=== PATIENT | male | born 1960 | race African-American/Black ===

== ENCOUNTER 2017-01-15 08:29 | Emergency (ER) | payer MEDICAID ==
[~2017-01-15] VITALS: Ht 175.3 cm; Wt 84.8 kg
[2017-01-15] MEDS ORDERED: cloNIDine HCL 0.1 MG TAB PO ONE (09:15)
[2017-01-15] MEDS ORDERED: KETOROLAC TROMETH 60MG/2ML VIAL IM ONE (10:00)
[2017-01-15 10:37] VITALS: BP 150/102
== END 2017-01-15 10:36 | disposition home or self-care (01) ==
LOC: ER 08:29
DX: G89.29 Other chronic pain (principal); M25.531 Pain in right wrist; I10 Essential (primary) hypertension; M10.9 Gout, unspecified; M79.89 Other specified soft tissue disorders
CPT/HCPCS: 73110; 96372; 99284; J1885

== ENCOUNTER 2017-04-16 05:20 | Emergency (ER) | payer MEDICAID ==
[~2017-04-16] VITALS: Ht 175.3 cm; Wt 83.9 kg
[2017-04-16] MEDS ORDERED: cloNIDine HCL 0.1 MG TAB ONE (05:31)
[2017-04-16] MEDS ORDERED: cloNIDine HCL 0.1 MG TAB PO ONE (05:45)
[2017-04-16 06:05] LABS: Basophils # (auto) 0.1 uL; Basophils % (auto) 1.1 % (0.0-2.0); Eosinophils # (auto) 0.3 uL; Eosinophils % (auto) 2.5 % (0.0-7.0); Hemoglobin 13.7 g/dL (13.5-17.5); Lymphocytes # (auto) 4.6 uL; Lymphocytes % (auto) 40.6 % (10.0-50.0); Mean Corpuscular Hemoglobin 28.4 pg (28.0-32.0); Mean Corpuscular Hgb Conc. 32.6 g/dL (32.0-36.0); Mean Corpuscular Volume 87.1 fL (80.0-100.0); Mean Platelet Volume 9.6 fL (6.9-10.8); Monocytes # (auto) 1.3 uL; Monocytes % (auto) 11.7 % (0.0-12.0); Neutrophils % (auto) 44.1 % (37.0-80.0); Nucleated Red Blood Cells % 0.3 %; Platelet Count (auto) 306 10^3/uL (140-450); Red Cell Distribution Width 15.1 % (11.8-14.3); White Blood Cell 11.3 10^3/uL (4.4-10.8)
[2017-04-16 06:10] LABS: Albumin 3.8 g/dL (3.4-5.0); Anion Gap 9 (5-15); Aspartate Aminotransferase 31 U/L (15-37); BUN/Creatinine Ratio 20.2; Blood Urea Nitrogen 19 mg/dL (7-18); Calcium 9.4 mg/dL (8.5-10.1); Carbon Dioxide 26 mmol/L (21-32); Chloride 103 mmol/L (98-107); GFR African American 107 mL/min; GFR Non-African American 89 mL/min; Glucose 99 mg/dL (74-106); Magnesium 1.9 mg/dL (1.6-2.6); Potassium 3.9 mmol/L (3.5-5.1); Sodium 138 mmol/L (136-145)
[2017-04-16 06:15] LABS: Alkaline Phosphatase 87 U/L (45-117); Bilirubin, Total 0.4 mg/dL (0.2-1.0); Total Protein 8.5 g/dL (6.4-8.2)
[2017-04-16 06:27] VITALS: BP 158/104
[2017-04-16] MEDS ORDERED: ONDANSETRON HCL 4 MG/2 ML VIAL IV ONE (06:45)
[2017-04-16] MEDS ORDERED: MORPHINE SULF INJ 2 MG/ML SYRINGE 1ML IV ONE (06:45)
== END 2017-04-16 07:08 | disposition home or self-care (01) ==
LOC: EDBD 05:20 → ER 05:21
DX: M10.022 Idiopathic gout, left elbow (principal); I10 Essential (primary) hypertension
CPT/HCPCS: 36415; 80053; 83735; 84484; 85025; 93005; 96374; 96375; 99285; J2270; J2405

== ENCOUNTER 2018-03-12 16:50 | Inpatient (IN) | payer MEDICAID ==
[~2018-03-12] VITALS: Ht 170.2 cm; Wt 82.4 kg
[2018-03-12] MEDS ORDERED: cloNIDine HCL 0.1 MG TAB ONE (17:02)
[2018-03-12] MEDS ORDERED: cloNIDine HCL 0.1 MG TAB PO ONE (17:15)
[2018-03-12 17:20] LABS: Basophils # (auto) 0.1 uL; Basophils % (auto) 1.1 % (0.0-2.0); Eosinophils # (auto) 0.1 uL; Eosinophils % (auto) 0.7 % (0.0-7.0); Hematocrit 40.7 % (41.0-53.0); Hemoglobin 13.2 g/dL (13.5-17.5); Lymphocytes # (auto) 3.7 uL; Lymphocytes % (auto) 41.5 % (10.0-50.0); Mean Corpuscular Hgb Conc. 32.5 g/dL (32.0-36.0); Mean Corpuscular Volume 86.1 fL (80.0-100.0); Monocytes # (auto) 0.7 uL; Monocytes % (auto) 8.4 % (0.0-12.0); Neutrophils # (auto) 4.3 uL; Neutrophils % (auto) 48.3 % (37.0-80.0); Nucleated Red Blood Cells % 0.5 %; Platelet Count (auto) 193 10^3/uL (140-450); Red Blood Cells 4.72 10^6/uL (4.5-5.90); Red Cell Distribution Width 14.6 % (11.8-14.3)
[2018-03-12 17:36] LABS: Albumin 4.1 g/dL (3.4-5.0); Anion Gap 7 (5-15); Blood Urea Nitrogen 13 mg/dL (7-18); Calcium 9.3 mg/dL (8.5-10.1); Carbon Dioxide 28 mmol/L (21-32); Chloride 98 mmol/L (98-107); Glucose 110 mg/dL (74-106); Sodium 133 mmol/L (136-145)
[2018-03-12 17:41] LABS: Alanine Aminotransferase 27 U/L (16-61); Alkaline Phosphatase 101 U/L (45-117); Aspartate Aminotransferase 20 U/L (15-37); BUN/Creatinine Ratio 14.4; Bilirubin, Total 0.8 mg/dL (0.2-1.0); GFR African American 112 mL/min; GFR Non-African American 93 mL/min; Total Protein 8.8 g/dL (6.4-8.2)
[2018-03-12] MEDS ORDERED: KETOROLAC TROMETH 30 MG/ML 1ML VIAL IV ONE (18:30)
[2018-03-12] MEDS ORDERED: InsuLIN REG 1unit/0.01ml Soln (100units/ml) SC ONE (19:45)
[2018-03-12] MEDS ORDERED: HYDROcodone-ACET 10/325MG TAB PO ONE ×2 (20:15)
[2018-03-12] MEDS ORDERED: cefTRIAXone 1GM/50ML D5W 50 ML IV ONE (20:15)
[2018-03-12] MEDS ORDERED: ALLOPURINOL 100 MG TAB PO ONE ×2 (21:00→23:00)
[2018-03-12] MEDS ORDERED: TEMAZEPAM 15 MG CAP PO PRN (21:00)
[2018-03-12] MEDS ORDERED: ONDANSETRON HCL 4 MG/2 ML VIAL IV PRN (21:00)
[2018-03-12] MEDS ORDERED: ACETAMINOPHEN 325 MG TAB PO PRN (21:00)
[2018-03-12 21:56] VITALS: BP 165/109
[2018-03-12] MEDS ORDERED: CLINDAMYCIN 600MG IV 50 ML IV SCH (22:00)
[2018-03-12] MEDS: FAMOTIDINE 20 MG TAB PO SCH (22:46)
[2018-03-12] MEDS: HYDROcodone-ACET 5/325MG TAB PO PRN (23:03)
[2018-03-12] MEDS ORDERED: KETOROLAC TROMETH 30 MG/ML 1ML VIAL IV PRN (23:15)
[2018-03-12] MEDS: cloNIDine HCL 0.1 MG TAB PO PRN (23:36)
[2018-03-12 23:54] VITALS: BP 165/109
[2018-03-13] VITALS (7 sets, daily range): BP systolic 142–161; BP diastolic 58–102
[2018-03-13] MEDS: HYDROcodone-ACET 5/325MG TAB PO PRN ×4 (05:47→22:33)
[2018-03-13] MEDS ORDERED: INFLUENZA QUAD 2018-2019 0.5 ML SYRG IM ONE (06:00)
[2018-03-13] MEDS ORDERED: PNEUMOCOCCAL VACC POLYS 25 MCG/0.5 ML VIAL IM ONE (06:00)
[2018-03-13] MEDS: FAMOTIDINE 20 MG TAB PO SCH ×2 (09:53→22:33)
[2018-03-13] MEDS ORDERED: ALLOPURINOL 100 MG TAB PO SCH ×2 (10:00)
[2018-03-13] MEDS ORDERED: LISINOPRIL 10 MG TAB PO SCH (10:00)
[2018-03-13] MEDS ORDERED: predniSONE 20 MG TAB PO STA (11:57)
[2018-03-13] MEDS: METOPROLOL TARTRATE 25 MG TAB PO SCH ×2 (13:11→22:32)
[2018-03-14 05:48] VITALS: BP 166/112
[2018-03-14] MEDS: cloNIDine HCL 0.1 MG TAB PO PRN (06:15)
== END 2018-03-14 08:00 | disposition left against medical advice (07) | DRG 351 ==
LOC: ER 16:58 → OVERFLOW 16:59 → CENTRAL 21:55
PROVIDERS: ADMIT Nurse Practitioner; ATTEND Internal Medicine Pulmonary Disease
DX: M10.072 Idiopathic gout, left ankle and foot (principal); L03.116 Cellulitis of left lower limb; I10 Essential (primary) hypertension; Z53.21 Procedure and treatment not carried out due to patient leaving prior to being seen by health care provider; M10.9 Gout, unspecified; Z82.49 Family history of ischemic heart disease and other diseases of the circulatory system; Z91.14 Patient's other noncompliance with medication regimen; Z23 Encounter for immunization
CPT/HCPCS: 36415; 71045; 73630; 80053; 84484; 84550; 85025; 90674; 96365; 96375; G0378; J0696; J1885; J3490

== ENCOUNTER 2020-02-23 21:54 | Inpatient (IN) | payer MEDICAID ==
[~2020-02-23] VITALS: Ht 175.3 cm; Wt 86.9 kg
[2020-02-23] MEDS ORDERED: cloNIDine HCL 0.1 MG TAB PO ONE (22:15)
[2020-02-24 00:11] LABS: Basophils # (auto) 0 10 ^3/uL (0-0.2); Basophils % (auto) 0.5 % (0.0-2.0); Eosinophils # (auto) 0 10 ^3/uL (0-0.8); Eosinophils % (auto) 0.9 % (0.0-7.0); Hematocrit 30.3 % (41.0-53.0); Hemoglobin 9.8 g/dL (13.5-17.5); Lymphocytes # (auto) 0.9 10 ^3/uL (0.4-5.4); Lymphocytes % (auto) 21.1 % (10.0-50.0); Mean Corpuscular Hemoglobin 28.3 pg (28.0-32.0); Mean Corpuscular Hgb Conc. 32.5 g/dL (32.0-36.0); Mean Corpuscular Volume 86.9 fL (80.0-100.0); Monocytes # (auto) 0.2 10 ^3/uL (0-1.3); Monocytes % (auto) 3.9 % (0.0-12.0); Neutrophils # (auto) 3.1 10 ^3/uL (1.6-8.6); Neutrophils % (auto) 73.6 % (37.0-80.0); Nucleated Red Blood Cells % 1.5 %; Platelet Count (auto) 177 10^3/uL (140-450); Red Blood Cells 3.48 10^6/uL (4.5-5.90); Red Cell Distribution Width 19.8 % (11.8-14.3); White Blood Cell 4.3 10^3/uL (4.4-10.8)
[2020-02-24 00:28] LABS: Albumin 3.4 g/dL (3.4-5.0); BUN/Creatinine Ratio 14.3; Calcium 8.4 mg/dL (8.5-10.1); Potassium 3.9 mmol/L (3.5-5.1)
[2020-02-24 00:31] LABS: Bilirubin, Total 0.3 mg/dL (0.2-1.0); Total Protein 7.8 g/dL (6.4-8.2)
[2020-02-24] MEDS ORDERED: GLUCAGON HYDROCHLORIDE (RDNA) 1 MG VIAL IV ONE (06:30)
[2020-02-24] MEDS ORDERED: SODIUM CHLORIDE 0.9% 1,000 ML IV ONE ×2 (06:30→06:45)
[2020-02-24] MEDS ORDERED: FAMOTIDINE (10MG/ML) 2ML VL IV ONE (06:45)
[2020-02-24 08:34] LABS: INR 0.98 (0.9-1.15); Partial Thromboplastin Time 25.1 sec (23.0-31.2)
[2020-02-24] MEDS ORDERED: MORPHINE SULF INJ 2 MG/ML SYRINGE 1ML ONE (09:21)
[2020-02-24] MEDS ORDERED: ONDANSETRON HCL 4 MG/2 ML VIAL ONE ×2 (09:27→12:10)
[2020-02-24] MEDS ORDERED: MEPERIDINE HCL (25 MG/ML) 1ML VIAL IM PRN (10:00)
[2020-02-24] MEDS ORDERED: ONDANSETRON HCL 4 MG/2 ML VIAL IV PRN ×2 (10:00→14:45)
[2020-02-24] MEDS ORDERED: hydrALAZINE HCL 20 MG/ML VL IV PRN (10:00)
[2020-02-24] MEDS ORDERED: NITROGLYCERIN 0.4 MG SL TAB SL PRN (10:00)
[2020-02-24] MEDS ORDERED: MORPHINE SULF INJ 2 MG/ML SYRINGE 1ML IV PRN (10:00)
[2020-02-24 10:24] LABS: % Iron Saturation 26.3 % (20-55)
[2020-02-24] MEDS: PANTOPRAZOLE 40 MG/10 ML VIAL INJ IV SCH ×2 (11:00→21:43)
[2020-02-24] MEDS: LABETALOL HCL 5 MG/ML 4ML SYRINGE IV PRN ×2 (11:01→21:44)
[2020-02-24] MEDS ORDERED: FOLIC ACID 1 MG, MULTIPLE VITAMIN 10 ML, MAGNESIUM SULF SDV 50% 8 MEQ, THIAMINE INJ 100... INJ SCH ×5 (12:00)
[2020-02-24] MEDS ORDERED: LIDOCAINE 2% (LOCAL ANESTH.) PF 5ml SDV ONE (12:10)
[2020-02-24] MEDS ORDERED: DexAMETHasone SOD PHOS 10MG/1ML VIAL INJ ONE (12:10)
[2020-02-24] MEDS ORDERED: PROPOFOL 10 MG/ML 20 ML IV ONE (12:10)
[2020-02-24] MEDS ORDERED: MIDAZOLAM HCL 1MG/1ML-2 ML VIAL ONE ×2 (12:10→14:23)
[2020-02-24] MEDS ORDERED: GLYCOPYRROLATE 0.2 MG/ML 1ML VIAL ONE (12:10)
[2020-02-24] MEDS ORDERED: fentaNYL CITRATE 100 MCG/2 ML VL ONE (12:10)
--- NOTE | 2020-02-24 12:13 | NUR ---
PATIENT ARRIVED TO THE FLOOR. NO REPORT RECEIVED. SAQIB NOT SENT TO LAB. WALKED SAQIB TO LAB.
[2020-02-24] MEDS ORDERED: SUCCINYLCHOLINE CHLORIDE 20 MG/ML 10ML VIAL IV ONE (12:18)
[2020-02-24 13:00] VITALS: BP 155/89
--- NOTE | 2020-02-24 13:33 | NUR ---
PATIENT DOWN TO OR. PATIENT SHOWS NO SIGNS OF DISTRESS AT THIS TIME.
[2020-02-24] MEDS ORDERED: ROCURONIUM 10MG/ML 10ML VIAL IV ONE (13:53)
[2020-02-24] MEDS ORDERED: HYDROmorphone HCL 2 MG/ML VL ONE (14:21)
[2020-02-24 14:36] VITALS: BP 110/62
[2020-02-24] MEDS ORDERED: HYDROmorphone HCL 2 MG/ML VL IV PRN (14:45)
[2020-02-24] MEDS ORDERED: MORPHINE SULFATE 4 MG/ML SYR/VIAL IV PRN (14:45)
[2020-02-24] MEDS ORDERED: MIDAZOLAM HCL 1MG/1ML-2 ML VIAL IV PRN (14:45)
[2020-02-24] MEDS ORDERED: ALBUTEROL SULF 2.5 MG/0.5ML(0.5%) NEB SOLN ONE (15:12)
[2020-02-24] MEDS ORDERED: IPRATROPIUM BROM 0.5 MG/2.5ML INH SOL ONE (15:13)
--- NOTE | 2020-02-24 15:13 | NUR ---
RT NOTE: PT. AWAKE AND ALERT AND ABLE TO FOLLOW COMMANDS. DR. CARR EXTUBATED PT. WITHOUT INCIDENT. PT. PLACED ON A 10L SIMPLE MASK WITH SPO2 96%.
[2020-02-24] MEDS ORDERED: ALBUTEROL SULF 2.5 MG/0.5ML(0.5%) NEB SOLN NEB ONE (15:15)
[2020-02-24] MEDS ORDERED: IPRATROPIUM BROM 0.5 MG/2.5ML INH SOL NEB ONE (15:15)
[2020-02-24] MEDS ORDERED: chlordiazePOXIDE HCL 5 MG CAP PO PRN (15:45)
--- NOTE | 2020-02-24 15:55 | NUR ---
PATIENT BACK FROM THE OR. SLEEPING. NO SIGNS OF DISTRESS AT THIS TIME.
[2020-02-24 17:35] LABS: Urine Bacteria MOD /hpf (None Seen); Urine Blood TRACE /uL (Negative); Urine Mucus FEW (None Seen); Urine Specific Gravity 1.013 (1.001-1.035); Urine WBC 30 /hpf (0 - 3)
--- NOTE | 2020-02-24 18:41 | NUR ---
IV insertion Patient accidently pulled out IV. IV access obtained, via clean sterile technique by inserting 20 gauge catheter at the right wrist after 1 attempt. IV secured properly. No trauma to site. Patient tolerated well.
--- NOTE | 2020-02-24 19:10 | NUR ---
Opening Shift Note Assumed care of patient, awake, alert and oriented x4, on room air with even and unlabored respirations, no S/S of distress/SOB or pain. Patient able to turn in bed independently, bed in lowest locked position, side rails up x2, and call light within reach. Instructed on POC and to call for assist PRN, will continue to monitor for changes Q1hr and PRN.
[2020-02-24] MEDS: IPRATROPIUM BROM 0.5 MG/2.5ML INH SOL NEB SCH (19:45)
[2020-02-24] MEDS: ALBUTEROL SULF 2.5 MG/0.5ML(0.5%) NEB SOLN NEB SCH (19:45)
--- NOTE | 2020-02-24 20:02 | NUR ---
SCHEDULED MED NEB TX WAS HELD @ THIS TIME DUE TO PT VOMITING AND C/O OF NAUSEA. NO RESPIRATORY DISTRESS NOTED. CURRENTLY ON R/A SPO2 96%, HR 98 AND RR 20. BS ARE CLEAR.
[2020-02-24 22:00] VITALS: BP 165/96
[2020-02-24 22:55] VITALS: BP 165/96
[2020-02-24] MEDS ORDERED: HYDROcodone-ACET 5/325MG TAB PO PRN (23:00)
[2020-02-25 05:00] VITALS: BP 188/99
[2020-02-25] MEDS: LABETALOL HCL 5 MG/ML 4ML SYRINGE IV PRN (05:23)
[2020-02-25] MEDS: IPRATROPIUM BROM 0.5 MG/2.5ML INH SOL NEB SCH (06:27)
[2020-02-25] MEDS: ALBUTEROL SULF 2.5 MG/0.5ML(0.5%) NEB SOLN NEB SCH (06:27)
--- NOTE | 2020-02-25 07:00 | NUR ---
OPENING SHIFT NOTE RECEIVED REPORT ON THE PATIENT. AWAKE LYING IN BED HAVING BREAKFAST. PATIENT SHOWS NO SIGNS OF DISTRESS AT THIS TIME. DISCUSSED THE PLAN OF CARE WITH THE PATIENT. BED IN LOWEST POSITION, SIDE RAILS UP X2, AND THE CALL LIGHT IS WITHIN REACH.
[2020-02-25] MEDS: PANTOPRAZOLE 40 MG/10 ML VIAL INJ IV SCH ×2 (10:00)
--- NOTE | 2020-02-25 10:20 | NUR ---
DR SNYDER AT BEDSIDE. NEW ORDERS RECEIVED.
--- NOTE | 2020-02-25 10:40 | NUR ---
PATIENT REFUSED LABETALOL AND RIPPED OUT IV ACCESS. PATIENT TO BE DISCHARGED.
[2020-02-25 11:13] VITALS: BP 160/98
--- NOTE | 2020-02-25 11:48 | NUR ---
Discharge instructions given as ordered. Encourage to follow up with PMD as instructed. All questions and concerns addressed. Patient verbalized understanding. Medication reconciliation form completed and copy given to patient. IV removed with catheter intact, pressure dressing applied.Telemetry unit returned to ICU. Patient taken to vehicle via wheelchair with all personal belongings, accompanied by staff and family member. No distress noted at time of departure.
== END 2020-02-25 11:49 | disposition home or self-care (01) | DRG 254 ==
LOC: ER 21:56 → TELE 21:57 → TELE-WESTW 02-24 12:11
PROVIDERS: ADMIT Nurse Practitioner Acute Care; ATTEND Internal Medicine
PROC: 0DC58ZZ Extirpation of Matter from Esophagus, Via Natural or Artificial Opening Endoscopic (ICD-10-PCS; principal; 2020-02-24 13:36)
DX: T18.198A Other foreign object in esophagus causing other injury, initial encounter (principal); I10 Essential (primary) hypertension; X58.XXXA Exposure to other specified factors, initial encounter; D63.8 Anemia in other chronic diseases classified elsewhere; Z20.828 Contact with and (suspected) exposure to other viral communicable diseases; Y93.89 Activity, other specified; Y92.89 Other specified places as the place of occurrence of the external cause; Y99.8 Other external cause status; Z80.42 Family history of malignant neoplasm of prostate
CPT/HCPCS: 36415; 70490; 71045; 80053; 81001; 82962; 83540; 83550; 83735; 85025; 85610; 85730; 87070; 87205; 87426; 93005; 94002; 94640; 96361; 96374; 96375; C9113; G0378; J0330; J1100; J2001; J2250; J2405; J2704; J3490

== ENCOUNTER 2020-09-23 05:55 | Emergency (ER) | payer MEDICAID ==
[~2020-09-23] VITALS: Ht 175.3 cm; Wt 84.8 kg
[2020-09-23 07:33] LABS: Hematocrit 29.4 % (41.0-53.0); Hemoglobin 9.5 g/dL (13.5-17.5); Mean Corpuscular Hemoglobin 28.3 pg (28.0-32.0); Mean Corpuscular Hgb Conc. 32.2 g/dL (32.0-36.0); Mean Corpuscular Volume 88.1 fL (80.0-100.0); Platelet Count (auto) 177 10^3/uL (140-450); Red Blood Cells 3.34 10^6/uL (4.5-5.90); White Blood Cell 3.9 10^3/uL (4.4-10.8)
[2020-09-23 07:36] LABS: Alanine Aminotransferase 34 U/L (16-61); Albumin 3.6 g/dL (3.4-5.0); Anion Gap 8 (5-15); Aspartate Aminotransferase 54 U/L (15-37); Blood Urea Nitrogen 11 mg/dL (7-18); Calcium 8.7 mg/dL (8.5-10.1); Carbon Dioxide 25 mmol/L (21-32); Chloride 106 mmol/L (98-107); Glucose 102 mg/dL (74-106); Magnesium 1.7 mg/dL (1.6-2.6); Potassium 3.8 mmol/L (3.5-5.1); Sodium 139 mmol/L (136-145)
[2020-09-23 07:38] LABS: Basophils % (manual) 0 (0.0-2.0); Blast Cells 0; Eosinophils % (manual) 0 (0-7); Metamyelocytes % 0; Myelocytes % 0; Promyelocytes % 0
[2020-09-23 07:41] LABS: Alkaline Phosphatase 161 U/L (45-117); BUN/Creatinine Ratio 11.7; Bilirubin, Total 0.8 mg/dL (0.2-1.0); GFR African American 106 mL/min; GFR Non-African American 88 mL/min; Total Protein 8.1 g/dL (6.4-8.2)
[2020-09-23 08:21] LABS: Band Neutrophils % (manual) 5; Lymphocytes % (manual) 49 (10.0-50.0); Monocytes % (manual) 5 (0-12); Reactive Lymphocytes 5
[2020-09-23] MEDS ORDERED: HYDROcodone-ACET 10/325MG TAB PO ONE (08:30)
[2020-09-23] MEDS ORDERED: LABETALOL HCL 5 MG/ML 4ML SYRINGE IV ONE (08:30)
[2020-09-23 08:46] LABS: Urine Bacteria FEW /hpf (None Seen); Urine Blood 1+ /uL (Negative); Urine Mucus FEW (None Seen); Urine Specific Gravity 1.013 (1.001-1.035); Urine WBC 701 /hpf (0 - 3); Urine WBC Clumps PRESENT /hpf (None Seen)
[2020-09-23] MEDS ORDERED: cloNIDine HCL 0.1 MG TAB PO ONE (09:45)
[2020-09-23 10:22] VITALS: BP 206/112
== END 2020-09-23 10:53 | disposition home or self-care (01) ==
LOC: ER 05:55
DX: S86.912A Strain of unspecified muscle(s) and tendon(s) at lower leg level, left leg, initial encounter (principal); I10 Essential (primary) hypertension; M10.9 Gout, unspecified; W01.0XXA Fall on same level from slipping, tripping and stumbling without subsequent striking against object, initial encounter; Y93.89 Activity, other specified; Y92.89 Other specified places as the place of occurrence of the external cause; Y99.8 Other external cause status
CPT/HCPCS: 36415; 71045; 80053; 81001; 83735; 83880; 84484; 85007; 85027; 93005; 93971; 96374; 99285; J3490

== ENCOUNTER 2021-04-08 19:12 | Emergency (ER) | payer MEDICAID ==
[~2021-04-08] VITALS: Ht 175.3 cm; Wt 84.8 kg
[2021-04-08 20:12] LABS: Urine Bacteria FEW /hpf (None Seen); Urine Blood TRACE /uL (Negative); Urine Specific Gravity 1.005 (1.001-1.035); Urine WBC 12 /hpf (0 - 3)
[2021-04-08 20:23] LABS: Amphetamine Screen, Urine NEGATIVE (NEGATIVE); Barbiturate Scree,Urine NEGATIVE (NEGATIVE); Benzodiazephine Screen, Urine NEGATIVE (NEGATIVE); Cannabinoid Screen, Urine NEGATIVE (NEGATIVE); Cocaine Screen, Urine NEGATIVE (NEGATIVE); Phencyclidine Screen, Urine NEGATIVE (NEGATIVE)
[2021-04-08 20:32] LABS: Opiate Scree,Urine NEGATIVE (NEGATIVE)
[2021-04-09 03:00] VITALS: BP 142/89
== END 2021-04-09 05:41 | disposition home or self-care (01) ==
LOC: EDBD 19:12 → ER 19:12
DX: S01.81XA Laceration without foreign body of other part of head, initial encounter (principal); F10.10 Alcohol abuse, uncomplicated; I10 Essential (primary) hypertension; V49.9XXA Car occupant (driver) (passenger) injured in unspecified traffic accident, initial encounter; Y93.89 Activity, other specified; Y92.89 Other specified places as the place of occurrence of the external cause; Y99.8 Other external cause status
CPT/HCPCS: 70450; 71045; 72170; 73560; 80307; 81001

== ENCOUNTER 2021-04-24 21:11 | Inpatient (IN) | payer MEDICAID ==
[~2021-04-24] VITALS: Ht 175.3 cm; Wt 89.2 kg
[2021-04-24] MEDS ORDERED: LABETALOL HCL 5 MG/ML 4ML SYRINGE IV ONE ×2 (21:45→23:45)
[2021-04-24 22:13] LABS: Hematocrit 30.7 % (41.0-53.0); Hemoglobin 9.7 g/dL (13.5-17.5); Mean Corpuscular Hemoglobin 27.7 pg (28.0-32.0); Mean Corpuscular Hgb Conc. 31.6 g/dL (32.0-36.0); Mean Corpuscular Volume 87.8 fL (80.0-100.0); Red Blood Cells 3.49 10^6/uL (4.5-5.90); White Blood Cell 3.8 10^3/uL (4.4-10.8)
[2021-04-24 22:25] LABS: Basophils % (manual) 0 (0.0-2.0); Blast Cells 0; Metamyelocytes % 0; Myelocytes % 0; Promyelocytes % 0; Reactive Lymphocytes 0
[2021-04-24 22:32] LABS: Albumin 3.3 g/dL (3.4-5.0); BUN/Creatinine Ratio 23.4; Calcium 8.2 mg/dL (8.5-10.1); Potassium 4.2 mmol/L (3.5-5.1)
[2021-04-24 22:41] LABS: Bilirubin, Total 0.4 mg/dL (0.2-1.0); Total Protein 7.8 g/dL (6.4-8.2)
[2021-04-25 00:19] LABS: Band Neutrophils % (manual) 2; Eosinophils % (manual) 1 (0-7); Lymphocytes % (manual) 59 (10.0-50.0); Monocytes % (manual) 2 (0-12)
[2021-04-25] MEDS ORDERED: LABETALOL HCL 200 MG TAB PO ONE (01:00)
[2021-04-25] MEDS ORDERED: HYDROcodone-ACET 5/325MG TAB PO ONE (04:45)
[2021-04-25] MEDS ORDERED: HYDROcodone-ACET 5/325MG TAB ONE (04:45)
[2021-04-25] MEDS ORDERED: amLODIPine BESYLATE 5 MG TAB PO ONE (07:30)
[2021-04-25] MEDS ORDERED: MORPHINE SULFATE INJECTION 2 MG/ML SYRG IV PRN (12:45)
[2021-04-25] MEDS ORDERED: NITROGLYCERIN 0.4 MG SL TAB SL PRN (12:45)
[2021-04-25] MEDS ORDERED: ACETAMINOPHEN 325 MG TAB PO PRN (12:45)
[2021-04-25] MEDS ORDERED: DOCUSATE SOD 100 MG CAP PO PRN (12:45)
[2021-04-25] MEDS ORDERED: ONDANSETRON HCL 4 MG/2 ML VIAL IV PRN (12:45)
[2021-04-25] MEDS ORDERED: HYDROcodone-ACET 5/325MG TAB PO PRN (12:45)
[2021-04-25] MEDS: MORPHINE SULFATE 4 MG/ML SYR/VIAL IV PRN ×2 (13:04→23:26)
[2021-04-25 22:00] VITALS: BP 164/99
[2021-04-25] MEDS: ASCORBIC ACID 500 MG TAB PO SCH (22:09)
[2021-04-25 22:30] VITALS: BP 164/99
[2021-04-25] MEDS: TEMAZEPAM 15 MG CAP PO PRN (23:27)
[2021-04-26] MEDS ORDERED: INFLUENZA QUAD 2021-2022 0.5 ML SYRG IM ONE (00:15)
[2021-04-26 05:20] LABS: Albumin 3.4 g/dL (3.4-5.0); Calcium 8.6 mg/dL (8.5-10.1); Potassium 4.3 mmol/L (3.5-5.1)
[2021-04-26 05:21] VITALS: BP 162/98
[2021-04-26 05:24] LABS: BUN/Creatinine Ratio 22.6; Bilirubin, Total 0.5 mg/dL (0.2-1.0); Total Protein 7.3 g/dL (6.4-8.2)
[2021-04-26 05:25] LABS: Hematocrit 29.2 % (41.0-53.0); Hemoglobin 9.6 g/dL (13.5-17.5); Mean Corpuscular Hemoglobin 28.5 pg (28.0-32.0); Mean Corpuscular Volume 86.5 fL (80.0-100.0); Red Blood Cells 3.37 10^6/uL (4.5-5.90); White Blood Cell 3.1 10^3/uL (4.4-10.8)
[2021-04-26 05:53] LABS: Basophils % (manual) 0 (0.0-2.0); Blast Cells 0; Eosinophils % (manual) 0 (0-7); Myelocytes % 0; Promyelocytes % 0; Reactive Lymphocytes 0
[2021-04-26 07:04] LABS: Band Neutrophils % (manual) 5; Metamyelocytes % 1; Monocytes % (manual) 4 (0-12)
[2021-04-26 07:05] LABS: Lymphocytes % (manual) 65 (10.0-50.0)
[2021-04-26 09:00] VITALS: BP 146/81
[2021-04-26] MEDS: ZINC SULFATE 220mg CAP or TAB PO SCH (10:25)
[2021-04-26] MEDS: ASCORBIC ACID 500 MG TAB PO SCH ×2 (10:25→19:56)
[2021-04-26] MEDS: MULTIPLE VITAMIN TAB PO SCH (10:25)
[2021-04-26 13:00] VITALS: BP 169/104
[2021-04-26] MEDS: hydrALAZINE HCL 25 MG TAB PO SCH ×2 (13:22→19:56)
[2021-04-26 16:36] VITALS: BP 170/100
[2021-04-26] MEDS: hydrALAZINE HCL 20 MG/ML VL IV PRN (17:29)
[2021-04-26] MEDS: MORPHINE SULFATE 4 MG/ML SYR/VIAL IV PRN (19:55)
[2021-04-26] MEDS: BACLOFEN 10 MG TAB PO PRN (20:45)
[2021-04-26] MEDS: TEMAZEPAM 15 MG CAP PO PRN (20:45)
[2021-04-26 21:55] VITALS: BP 144/89
[2021-04-26] MEDS: HYDROCORTONE 1% TOPICAL CREAM 30 GM TUBE TOP SCH (21:57)
[2021-04-26 22:00] VITALS: BP 176/129
[2021-04-27 05:00] VITALS: BP 138/97
[2021-04-27] MEDS: hydrALAZINE HCL 25 MG TAB PO SCH ×3 (05:09→23:02)
[2021-04-27] MEDS: HYDROCORTONE 1% TOPICAL CREAM 30 GM TUBE TOP SCH ×3 (05:09→23:04)
[2021-04-27 09:00] VITALS: BP 191/119
[2021-04-27] MEDS: ASCORBIC ACID 500 MG TAB PO SCH ×2 (09:11→23:04)
[2021-04-27] MEDS: MULTIPLE VITAMIN TAB PO SCH (09:11)
[2021-04-27] MEDS: ZINC SULFATE 220mg CAP or TAB PO SCH (09:11)
[2021-04-27] MEDS: hydrALAZINE HCL 20 MG/ML VL IV PRN ×2 (09:11→16:49)
[2021-04-27 16:00] VITALS: BP 161/110
[2021-04-27] MEDS ORDERED: NIFEdipine ER 30 MG TAB PO ONE (18:00)
[2021-04-27 22:00] VITALS: BP 151/93
[2021-04-27] MEDS: BACLOFEN 10 MG TAB PO PRN (23:04)
[2021-04-27] MEDS: TEMAZEPAM 15 MG CAP PO PRN (23:04)
[2021-04-28 05:00] VITALS: BP 136/87
[2021-04-28] MEDS: HYDROCORTONE 1% TOPICAL CREAM 30 GM TUBE TOP SCH (05:56)
[2021-04-28] MEDS: hydrALAZINE HCL 25 MG TAB PO SCH (05:57)
[2021-04-28 08:00] VITALS: BP 146/89
[2021-04-28 08:29] VITALS: BP 146/89
[2021-04-28 09:33] VITALS: BP 146/89
[2021-04-28] MEDS ORDERED: NIFEdipine ER 30 MG TAB PO SCH (10:00)
[2021-04-28] MEDS: MULTIPLE VITAMIN TAB PO SCH (10:01)
[2021-04-28] MEDS: ZINC SULFATE 220mg CAP or TAB PO SCH (10:01)
[2021-04-28] MEDS: ASCORBIC ACID 500 MG TAB PO SCH (10:02)
== END 2021-04-28 12:05 | disposition home or self-care (01) | DRG 199 ==
LOC: EDBD 21:11 → EDUNIT# 21:11 → ER 21:18 → TELE 04-25 12:37 → TELE-WESTW 04-25 22:38
PROVIDERS: ADMIT Internal Medicine; ATTEND Internal Medicine
DX: I16.9 Hypertensive crisis, unspecified (principal); J96.01 Acute respiratory failure with hypoxia; I10 Essential (primary) hypertension; Z20.822 Contact with and (suspected) exposure to COVID-19; Z80.42 Family history of malignant neoplasm of prostate; Z91.14 Patient's other noncompliance with medication regimen; M10.9 Gout, unspecified
CPT/HCPCS: 36415; 71045; 80053; 83880; 84484; 85007; 85027; 87426; 93005; 93306; 96374; 96376; G0378; J2405; J3490

== ENCOUNTER → 2021-11-17 | Emergency (ER) | payer MEDICAID ==
[~2021-11-17] VITALS: Ht 175.3 cm; Wt 87.1 kg
[~2021-11-17] MED LIST: DexAMETHasone SOD PHOS 10MG/1ML VIAL INJ IM ONE; KETOROLAC TROMETH 60MG/2ML VIAL IM ONE; PIPERACILLIN-TAZOB 3.375GM 100 ML IV ONE; SODIUM CHLORIDE 0.9% 1,000 ML IV ONE; VANCOMYCIN 1GM/250ML 250 ML IV ONE
[2021-11-17 21:48] LABS: Albumin 3.4 g/dL (3.4-5.0); Calcium 9.3 mg/dL (8.5-10.1); Potassium 3.7 mmol/L (3.5-5.1)
[2021-11-17 21:57] LABS: BUN/Creatinine Ratio 19.4; Bilirubin, Total 0.2 mg/dL (0.2-1.0); CRP High Sensitivity 2.24 mg/dL (< 0.3); Total Protein 9.4 g/dL (6.4-8.2)
[2021-11-18 01:48] VITALS: BP 167/94
== END | disposition short-term general hospital (02) ==
LOC: ER 17:41
DX: M54.2 Cervicalgia (principal); G06.1 Intraspinal abscess and granuloma; M86.9 Osteomyelitis, unspecified; I10 Essential (primary) hypertension; M10.9 Gout, unspecified
CPT/HCPCS: 36415; 72125; 80053; 85652; 86141; 87040; 93005

== ENCOUNTER 2022-10-23 22:30 | Emergency (ER) | payer MEDICAID ==
[~2022-10-23] VITALS: Ht 175.3 cm; Wt 90.0 kg
[2022-10-23 23:37] LABS: Hematocrit 29.3 % (41.0-53.0); Hemoglobin 9.6 g/dL (13.5-17.5); Mean Corpuscular Hgb Conc. 32.8 g/dL (32.0-36.0); Mean Corpuscular Volume 82.2 fL (80.0-100.0); Red Blood Cells 3.56 10^6/uL (4.5-5.90); White Blood Cell 5.9 10^3/uL (4.4-10.8)
[2022-10-23 23:39] LABS: Red Cell Distribution Width 20.7 % (11.8-14.3)
[2022-10-23 23:40] LABS: Band Neutrophils % (manual) 0; Basophils % (manual) 0 (0.0-2.0); Blast Cells 0; Metamyelocytes % 0; Myelocytes % 0; Promyelocytes % 0; Reactive Lymphocytes 0
[2022-10-23 23:43] LABS: Albumin 3.4 g/dL (3.4-5.0); BUN/Creatinine Ratio 13.1 (10.0-20.0); Calcium 8.6 mg/dL (8.5-10.1); Potassium 4.2 mmol/L (3.5-5.1)
[2022-10-23 23:46] LABS: Bilirubin, Total 0.4 mg/dL (0.2-1.0); Total Protein 8.4 g/dL (6.4-8.2)
[2022-10-24 00:09] LABS: Eosinophils % (manual) 1 (0-7); Lymphocytes % (manual) 65 (10.0-50.0); Monocytes % (manual) 4 (0-12)
[2022-10-24] MEDS ORDERED: KETOROLAC TROMETH 60MG/2ML VIAL IM ONE (01:45)
[2022-10-24 02:15] VITALS: BP 156/75
== END 2022-10-24 02:12 | disposition home or self-care (01) ==
LOC: ER 22:33
DX: M10.9 Gout, unspecified (principal); M25.542 Pain in joints of left hand; R60.0 Localized edema; I10 Essential (primary) hypertension; F10.20 Alcohol dependence, uncomplicated; Y90.9 Presence of alcohol in blood, level not specified
CPT/HCPCS: 36415; 73130; 80053; 84550; 85007; 85027; 85652; 93971; 96372; 99285; J1885

== ENCOUNTER 2024-01-18 04:44 | Emergency (ER) | payer MEDICAID ==
[~2024-01-18] VITALS: Ht 175.3 cm; Wt 84.1 kg
[2024-01-18 04:54] VITALS: TEMP 98.7
[2024-01-18] MEDS: hydrALAZINE HCL 10 MG TAB PO ONE (05:31)
[2024-01-18 06:37] VITALS: BP 143/101; PULSE 115; RESP 18; O2SAT 98
[2024-01-18 07:11] LABS: Chloride 108 mmol/L (98-107); Potassium 4.2 mmol/L (3.5-5.1); Sodium 136 mmol/L (136-145)
[2024-01-18 07:12] LABS: Anion Gap 6 (5-15); Calcium 9.4 mg/dL (8.7-10.4); Carbon Dioxide 22 mmol/L (20-30)
[2024-01-18 07:17] LABS: Blood Urea Nitrogen 27 mg/dL (9-23); Glucose 109 mg/dL (74-106)
[2024-01-18 07:19] LABS: Hematocrit 28.4 % (41.0-53.0); Hemoglobin 9.2 g/dL (13.5-17.5); Mean Corpuscular Hemoglobin 28.3 pg (28.0-32.0); Mean Corpuscular Hgb Conc. 32.4 g/dL (32.0-36.0); Mean Corpuscular Volume 87.2 fL (80.0-100.0); Platelet Count (auto) 248 10^3/uL (140-450); Red Blood Cells 3.26 10^6/uL (4.5-5.90); White Blood Cell 7.8 10^3/uL (4.4-10.8)
[2024-01-18 07:24] LABS: Red Cell Distribution Width 21.1 % (11.8-14.3)
[2024-01-18 07:25] LABS: Urine Blood 3+ /uL (Negative); Urine Clarity Ex.Turbid (Clear); Urine Color Dark-Red (Yellow); Urine Protein, UAD 2+ (Negative); Urine Specific Gravity 1.014 (1.001-1.035); Urine Urobilinogen Normal (Negative)
[2024-01-18 07:26] LABS: Basophils % (manual) 0 (0.0-2.0); Blast Cells 0; Eosinophils % (manual) 0 (0-7); INR 0.97 (0.9-1.15); Metamyelocytes % 0; Myelocytes % 0; Partial Thromboplastin Time 28.5 SEC (24.5-34.5); Promyelocytes % 0; Prothrombin Time 10.3 sec (9.3-11.8)
[2024-01-18 07:26] LABS: Urine Bacteria MOD /hpf (None Seen); Urine Hyaline Cast 1+ /lpf (0 - 2); Urine Mucus FEW (None Seen)
[2024-01-18 07:27] LABS: Urine WBC 502 /hpf (0 - 3)
[2024-01-18] MEDS: cefTRIAXone SOD 1,000 MG VL IM ONE (08:03)
[2024-01-18 08:04] LABS: Band Neutrophils % (manual) 4; Lymphocytes % (manual) 63 (10.0-50.0); Monocytes % (manual) 5 (0-12); Platelet Estimate Adequate; Reactive Lymphocytes 5
[2024-01-18] MEDS ORDERED: BACDST PO (08:09)
== END 2024-01-18 08:20 | disposition left against medical advice (07) ==
LOC: ER 04:44
DX: N13.30 Unspecified hydronephrosis (principal); N39.0 Urinary tract infection, site not specified; R31.9 Hematuria, unspecified; D64.9 Anemia, unspecified; I12.9 Hypertensive chronic kidney disease with stage 1 through stage 4 chronic kidney disease, or unspecified chronic kidney disease; N18.9 Chronic kidney disease, unspecified; M10.9 Gout, unspecified; F10.90 Alcohol use, unspecified, uncomplicated; Z85.9 Personal history of malignant neoplasm, unspecified; Z79.899 Other long term (current) drug therapy; Y90.0 Blood alcohol level of less than 20 mg/100 ml
CPT/HCPCS: 36415; 74176; 80048; 81001; 85007; 85027; 85610; 85730; 87086; 96372; 99285; J0696; 87088; 87186

== ENCOUNTER 2024-08-08 21:25 | Emergency (ER) | payer MEDICAID ==
[~2024-08-08] VITALS: Ht 175.3 cm; Wt 88.0 kg
[~2024-08-08 21:25] MED LIST changes: +BACDST PO; -DexAMETHasone SOD PHOS 10MG/1ML VIAL INJ IM ONE; -KETOROLAC TROMETH 60MG/2ML VIAL IM ONE; -PIPERACILLIN-TAZOB 3.375GM 100 ML IV ONE; -SODIUM CHLORIDE 0.9% 1,000 ML IV ONE; -VANCOMYCIN 1GM/250ML 250 ML IV ONE
--- NOTE | 2024-08-08 22:58 | DVH ---
CHEST RADIOGRAPH Indication: Shortness of breath Technique: Single frontal view of the chest was obtained COMPARISON: None FINDINGS: Lines and Tubes: None Lungs: There are infiltrates in the right mid to lower lung consistent with pneumonia. Pleura: No effusion. No pneumothorax. Cardiomediastinal contours: Unremarkable IMPRESSION: Infiltrates in right mid to lower lung consistent with pneumonia.
[2024-08-08] MEDS: ALBUTEROL SULF 2.5 MG/0.5ML(0.5%) NEB SOLN NEB ONE (23:11)
[2024-08-08] MEDS: IPRATROPIUM BROM 0.5 MG/2.5ML INH SOL NEB ONE (23:11)
[2024-08-08 23:23] LABS: Hemoglobin 8.2 g/dL (13.5-17.5); Mean Corpuscular Hemoglobin 27.7 pg (28.0-32.0); Mean Corpuscular Hgb Conc. 32.7 g/dL (32.0-36.0); Mean Corpuscular Volume 84.8 fL (80.0-100.0); Platelet Count (auto) 419 10^3/uL (140-450); Red Blood Cells 2.94 10^6/uL (4.5-5.90); Red Cell Distribution Width 21.9 % (11.8-14.3); White Blood Cell 7.1 10^3/uL (4.4-10.8)
[2024-08-08 23:25] LABS: Band Neutrophils % (manual) 0; Basophils % (manual) 0 (0.0-2.0); Blast Cells 0; Eosinophils % (manual) 0 (0-7); Metamyelocytes % 0; Monocytes % (manual) 0 (0-12); Myelocytes % 0; Promyelocytes % 0; Reactive Lymphocytes 0
[2024-08-08 23:35] LABS: Alanine Aminotransferase 15 U/L (7-40); Albumin 4.2 g/dL (3.2-4.8); Alkaline Phosphatase 111 U/L (46-116); Anion Gap 13 (5-15); Aspartate Aminotransferase 25 U/L (13-40); BUN/Creatinine Ratio 18.5 (10.0-20.0); Blood Urea Nitrogen 24 mg/dL (9-23); Calcium 9.8 mg/dL (8.7-10.4); Carbon Dioxide 19 mmol/L (20-31); Chloride 105 mmol/L (98-107); Glucose 130 mg/dL (74-106); Potassium 3.9 mmol/L (3.5-5.1); Sodium 137 mmol/L (136-145)
[2024-08-08 23:41] LABS: Bilirubin, Total 0.3 mg/dL (0.2-1.0)
[2024-08-08] MEDS: DexAMETHasone SOD PHOS 10MG/1ML VIAL INJ IM ONE (23:51)
[2024-08-08] MEDS: ACETAMINOPHEN 325 MG TAB PO ONE (23:56)
[2024-08-09 00:32] VITALS: PULSE 99; RESP 30; O2SAT 96
[2024-08-09 00:40] LABS: Lymphocytes % (manual) 40 (10.0-50.0)
[2024-08-09 00:41] LABS: Anisocytosis Slight; Platelet Estimate Adequate
[2024-08-09 00:48] VITALS: BP 145/81; PULSE 99
[2024-08-09] MEDS: AZITHROMYCIN 250 MG TAB PO ONE (01:02)
[2024-08-09] MEDS: AMOXICILLIN/CLAVUL 875 MG TAB PO ONE (01:02)
[2024-08-09] MEDS: PROMETHAZINE-DM 5 ML ORAL SYRUP PO ONE (01:03)
[2024-08-09] MEDS: IPRATROPIUM BROM 0.5 MG/2.5ML INH SOL NEB ONE (01:07)
[2024-08-09] MEDS: ALBUTEROL SULF 2.5 MG/0.5ML(0.5%) NEB SOLN NEB ONE (01:07)
[2024-08-09 01:08] VITALS: RESP 18; O2SAT 97
[2024-08-09 01:15] VITALS: TEMP 98.9
[2024-08-09] MEDS ORDERED: ACET500T58 PO (01:19)
[2024-08-09] MEDS ORDERED: AUG875T PO (01:19)
[2024-08-09] MEDS ORDERED: ALBU108A5 IN (01:19)
[2024-08-09] MEDS ORDERED: BENZ100C97 PO (01:19)
[2024-08-09] MEDS ORDERED: AZIT-185 PO (01:19)
--- NOTE | 2024-08-09 01:19 | ED.PDOC ---
SOB-HPI HPI Comments This patient is a pleasant 64-year-old male who arrives the ED today for e valuation of shortness a breath, cough congestion for the past week. Patient states the symptoms came on and have been unrelenting. Patient states he can not get a full breath and feels like his lungs are compromise. Patient denies any history of pulmonary or cardiac concerns. Patient has a mild temperature at arrival It was tachypneic.. Chief Complaint: Shortness of Breath Time Seen by MD: 21:28 Primary Care Provider: VICENTA Rios notes: Nurses Notes Information Source: Patient Mode of Arrival: Ambulatory Severity: Moderate Timing: Days Duration: Since onset Context: At Rest PE Risk Factors: None History of: None Prehospital treatment: None Modifying Factors: Nothing Associated Signs and Symptoms: None, Wheeze, Cough Quality: Tightness Past Medical History PAST MEDICAL HISTORY: Cancer, CKF, Gout, HTN Surgical History: Denies all surgeries Family History Family History: Reviewed,noncontributory to illness Social History Smoker: Non-Smoker Alcohol: Heavy Drugs: Denies Drug Use Lives In: Home Constitutional: reports: fever; denies: chills, diaphoresis, fatigue, malaise, sweats, weakness, others EENTM: denies: blurred vision, double vision, ear bleeding, ear discharge, ear drainage, ear pain, ear ringing, eye pain, eye redness, hearing loss, mouth pain, mouth swelling, nasal discharge, nose bleeding, nose congestion, nose pain, photophobia, tearing, throat pain, throat swelling, voice changes, others Respiratory: reports: cough, SOB at rest; denies: hemoptysis, orthopnea, shortness of breath, SOB with excertion, stridor, wheezing, others Cardiovascular: reports: chest pain; denies: dizzy spells, diaphoresis, Dyspnea on exertion, edema, irregular heart beat, left arm pain, lightheadedness, palpitations, PND, syncope, others Gastrointestinal: denies: abdomen distended, abdominal pain, blood streaked bowels, constipated, diarrhea, dysphagia, difficulty swallowing, hematemesis, melena, nausea, poor appetite, poor fluid intake, rectal bleeding, rectal pain, vomiting, others Genitourinary: denies: burning, dysuria, flank pain, frequency, hematuria, incontinence, penile discharge, penile sore, pain, testicle pain, testicle swelling, urgency, others Neurological: denies: dizziness, fainting, headache, left sided numbness, left sided weakness, numbness, paresthesia, pre-existing deficit, right sided numbness, right sided weakness, seizure, speech problems, tingling, tremors, weakness, others Musculoskeletal: denies: back pain, gout, joint pain, joint swelling, muscle pain, muscle stiffness, neck pain, others Integumetry: denies: bruises, change in color, change in hair/nails, dryness, laceration, lesions, lumps, rash, wounds, others Allergic/Immunocompromised: denies: Difficulty Healing, Frequent Infections, Hives, Itching, others Hematologic/Lymphatic: denies: anemia, blood clots, easy bleeding, easy bruising, swollen glands, others Endocrine: denies: excessive hunger, excessive sweating, excessive thirst, excessive urination, flushing, intolerance to cold, intolerance to heat, unexplained weight gain, unexplained weight loss, others Psychiatric: denies: anxiety, bipolar disorder, depression, hopeless, panic disorder, schizophrenia, sleepless, suicidal, others Physical Exam General Appearance: Moderate Distress (Patient presents as a moderately ill 64-year-old male.), Normal HEENT: Normal ENT Inspection, Pharynx Normal, TMs Normal Neck: Full Range of Motion, Non-Tender, Normal, Normal Inspection Respiratory: Other ( Mild rhonchi appreciated right middle and lower lobe. No accessory muscle use. No signs of respiratory distress.) Cardiovascular: No Edema, No JVD, No Murmur, No Gallop, Normal Peripheral Pulses, Regular Rate/Rhythm Breast Exam: Deferred Gastrointestinal: No Organomegaly, Non Tender, No Pulsatile Mass, Normal Bowel Sounds, Soft Genitalia: Deferred Pelvic: Deferred Rectal: Deferred Extremities: No calf tenderness, Normal capillary refill, Normal inspection, Normal range of motion, Non-tender, No pedal edema Neurologic: Alert, No Motor Deficits, Normal Affect, Normal Mood, No Sensory Deficits Cerebellar Function: Normal Reflexes: Normal Skin: Dry, Normal Color, Warm Lymphatic: No Adenopathy Was a procedure done? Was a procedure done?: No Differential Dx Differential Diagnosis: Bronchitis, COPD, Pneumonia, URI X-Ray, Labs, Meds, VS Vital Signs Date Time Temp Pulse Resp B/P (MAP) Pulse Ox O2 Delivery O2 Flow Rate FiO2 08/09/24 00:48 100.0 99 145/81 (102) 100.0 08/09/24 00:32 99 30 96 Nasal Cannula* 2 28 08/09/24 00:04 32 94 Room Air* 0 21 08/09/24 00:00 107 08/09/24 00:00 99 27 160/95 (116) 95 08/08/24 23:56 100.7 08/08/24 23:30 100.7 114 18 147/82 (103) 94 100.7 08/08/24 23:13 18 94 Room Air* 0 21 08/08/24 22:36 109 08/08/24 22:36 98.2 64 30 198/95 (129) 97 98.2 Lab Test 08/08/24 22:35 Range/Units White Blood Count 7.1 4.4-10.8 10^3/uL Red Blood Count 2.94 L 4.5-5.90 10^6/uL Hemoglobin 8.2 L 13.5-17.5 g/dL Hematocrit 25.0 L 41.0-53.0 % Mean Corpuscular Volume 84.8 80.0-100.0 fL Mean Corpuscular Hemoglobin 27.7 L 28.0-32.0 pg Mean Corpuscular Hemoglobin Concent 32.7 32.0-36.0 g/dL Red Cell Distribution Width 21.9 H 11.8-14.3 % Platelet Count 419 140-450 10^3/uL Mean Platelet Volume 9.7 6.9-10.8 fL Neutrophils (%) (Auto) 37.0-80.0 % Lymphocytes (%) (Auto) 10.0-50.0 % Monocytes (%) (Auto) 0.0-12.0 % Basophils (%) (Auto) 0.0-2.0 % Neutrophils # (Auto) 1.6-8.6 10 ^3/uL Lymphocytes # (Auto) 0.4-5.4 10 ^3/uL Monocytes # (Auto) 0-1.3 10 ^3/uL Differential Total Cells Counted 100.0 100 Neutrophils % (Manual) 60 37.0-80.0 Band Neutrophils % (Manual) 0 Lymphocytes % (Manual) 40 10.0-50.0 Monocytes % (Manual) 0 0-12 Eosinophils % (Manual) 0 0-7 Basophils % (Manual) 0 0.0-2.0 Metamyelocytes % (manual) 0 Myelocytes % (Manual) 0 Promyelocytes % (Manual) 0 Blast Cells % (Manual) 0 Nucleated Red Blood Cells 3.0 % Reactive Lymphocytes 0 Platelet Estimate Adequate Anisocytosis (manual) Slight [place] Cells Few Schistocytes Few Sodium Level 137 136-145 mmol/L Potassium Level 3.9 3.5-5.1 mmol/L Chloride Level 105 98-107 mmol/L Carbon Dioxide Level 19 L 20-31 mmol/L Anion Gap 13 5-15 Blood Urea Nitrogen 24 H 9-23 mg/dL Creatinine 1.30 0.700-1.30 mg/dL Glomerular Filtration Rate Calc 62 >90 mL/min BUN/Creatinine Ratio 18.5 10.0-20.0 Serum Glucose 130 H 74-106 mg/dL Calcium Level 9.8 8.7-10.4 mg/dL Total Bilirubin 0.3 0.2-1.0 mg/dL Aspartate Amino Transferase (AST) 25 13-40 U/L Alanine Aminotransferase (ALT) 15 7-40 U/L Alkaline Phosphatase 111 46-116 U/L Troponin I High Sensitivity 14 </=54 ng/L B-Type Natriuretic Peptide 212.33 0-100 pg/mL Total Protein 8.0 5.7-8.2 g/dL Albumin 4.2 3.2-4.8 g/dL Current Medications Medications (Trade) Dose Ordered Sig/Jamie Route Start Time Stop Time Status Last Admin Albuterol (Ventolin Medneb) 5 mg ONCE ONCE NEB 08/08/24 22:30 08/08/24 22:31 DC 08/08/24 23:11 Ipratropium Souris (Atrovent Medneb) 0.5 mg ONCE ONCE NEB 08/08/24 22:30 08/08/24 22:31 DC 08/08/24 23:11 Dexamethasone Sodium Phosphate (Decadron Injection) 10 mg ONCE ONCE IM 08/08/24 22:30 08/08/24 22:31 DC 08/08/24 23:51 Acetaminophen (Tylenol Tablet) 650 mg ONCE ONCE PO 08/09/24 00:00 08/09/24 00:01 DC 08/08/24 23:56 Promethazine HCl/ Dextromethorphan (Phenergan-Dm) 5 ml ONCE ONCE PO 08/09/24 00:45 08/09/24 00:47 DC 08/09/24 01:03 Azithromycin (Zithromax Tablet) 500 mg ONCE ONCE PO 08/09/24 01:00 08/09/24 01:01 DC 08/09/24 01:02 Amoxicillin/ Clavulanate Potassium (Augmentin Tablet) 875 mg ONCE ONCE PO 08/09/24 01:00 08/09/24 01:01 DC 08/09/24 01:02 Albuterol (Ventolin Medneb) 5 mg ONCE ONCE NEB 08/09/24 01:00 08/09/24 01:01 DC 08/09/24 01:07 Ipratropium Souris (Atrovent Medneb) 0.5 mg ONCE ONCE NEB 08/09/24 01:00 08/09/24 01:01 DC 08/09/24 01:07 X-Ray, Labs, Meds, VS Comment All studies performed the ED were evaluated by me personally. Laboratories studies were unremarkable for any acute systemic process. Imaging studies r evealed infiltrates in the right mid to lower lung consistent with pneumonia. EKG revealed a sinus tachycardia with a rate of 109. . Ventricular premature complexes as well as baseline wander in leads two and three. PA interval 137 and QT interval of 337.Patient was given his 1st dose of antibiotics as well as additional medication while at the facility. Advised the patient that is he should follow up with his primary care provider for discussions related to blood pressure management. Patient states he has had blood pressure issues in the past, but does not currently take medication. Time of 1ST Reevaluation: 01:16 Reevaluation 1ST: Improved Consultation: PCP Patient Education/Counseling: Diagnosis, Treatment Family Education/Counseling: Diagnosis, Treatment Departure 1 Departure Time of Disposition: 01:15 Impression: Primary Impression: Pneumonia Disposition: HOME / SELF CARE / HOMELESS Condition: Stable Additional Instructions: Advised patient utilize dual antibiotic therapy as directed until completion. Additional medication as needed. Good hydration and healthy nutrition throughout. e-Prescriptions Albuterol Sulfate (Albuterol Sulfate Hfa) 108 Mcg/Act Aer 108 MCG IN Q4HP PRN, #1 AER Prov: JUAN DIEGO ROSENBERG PAC 08/09/24 Acetaminophen (Acetaminophen) 500 Mg Tab 500 MG PO Q4HP PRN, #30 TAB Prov: JUAN DIEGO ROSENBERG PAC 08/09/24 Benzonatate (Benzonatate) 100 Mg Cap 1 CAP PO Q8HP PRN, #30 CAP Prov: SHAKIRAJUAN DIEGO Mary PAC 08/09/24 Amoxicillin & Pot Clavulanate (AUGMENTIN TABLET) 875 Mg Tb 875 MG PO BID for 7 Days, #14 TAB Prov: JUAN DIEGO ROSENBERG PAC 08/09/24 Azithromycin (ZITHROMAX TABLET) 250 Mg Tb 250 MG PO DAILY for 4 Days, #4 TAB Prov: JUAN DIEGO ROSENBERG PAC 08/09/24 Discharged With: Self, Friend Critical Care Note Critical Care Time?: No Stability Stability form required: No Heart Score Heart Score: Heart Score Response (Comments) Value History Slightly Suspicious 0 EKG Repolarization Disturb 1 Age 45-64 1 Risk Factors 1 or 2 risk factors 1 Troponin Normal limit 0 Total 3 SHAKIRAJUAN DIEGO Mary PAC Aug 09, 2024 01:19
--- NOTE | 2024-08-10 13:16 | ECG ---
[facility] Test Date: 2024-08-08 Test Time: 22:36:13 Pat Name: KELVIN BLANC Department: ER Room: Gender: M Recruitment Officer: IGNACIO : 1960 Requested By: JUAN DIEGO ROSENBERG Order Number: [id number] Reading MD: Measurements Intervals [place] Rate: 109 P: 46 CT: 137 QRS: 21 QRSD: 89 T: 64 QT: 337 QTc: 454 Interpretive Statements Sinus tachycardia Paired ventricular premature complexes Baseline wander in lead(s) I,III,aVL Please click the below link to view image of tracing.
== END 2024-08-09 01:58 | disposition home or self-care (01) ==
LOC: ER 21:25
DX: J18.9 Pneumonia, unspecified organism (principal); I12.9 Hypertensive chronic kidney disease with stage 1 through stage 4 chronic kidney disease, or unspecified chronic kidney disease; N18.9 Chronic kidney disease, unspecified; M10.9 Gout, unspecified
CPT/HCPCS: 36415; 71045; 80053; 83880; 84484; 85007; 85027; 93005; 94640; 96372; 99285; J1100

== ENCOUNTER 2024-12-17 03:12 | Inpatient (IN) | payer MEDICAID ==
[~2024-12-17] VITALS: Ht 175.3 cm; Wt 92.9 kg
[~2024-12-17 03:12] MED LIST changes: +ACET500T58 PO; +ALBU108A5 IN; +AUG875T PO; +AZIT-185 PO; +BENZ100C97 PO
--- NOTE | 2024-12-17 03:33 | ECG ---
[facility] Test Date: 2024-12-17 Test Time: 03:27:11 Pat Name: KELVIN BLANC Department: ED Room: 1020-ER Gender: M Certified Medication Technician: ERIKA : 1960 Requested By: EMERGENCY EMERGENCY Order Number: [id number] Reading MD: Yonny Maagna Measurements Intervals [place] Rate: 129 P: 53 DE: 144 QRS: 24 QRSD: 86 T: 69 QT: 311 QTc: 456 Interpretive Statements Sinus tachycardia Ventricular premature complex Probable left atrial enlargement Left ventricular hypertrophy Baseline wander in lead(s) V1,V6 Electronically Signed On 12-17-2024 11:21:19 PDT by Yonny Magana Please click the below link to view image of tracing.
[2024-12-17 03:52] VITALS: PULSE 120; RESP 21; O2SAT 97
--- NOTE | 2024-12-17 04:01 | ED.PDOC ---
General HPI Comments 64 year old male presents to the ED with a chief complaint of hematuria onset 2 days. Patient states he began experiencing hematuria 2 days ago, with intermittent dysuria. Patient states he was treated for cystitis recently. Upon ED arrival patient's BP was 233/141. PMHx BPH, prostate cancer, HTN, CKF, gout. Denies chest pain, shortness of breath, headache, dizziness, nausea, vomiting, diarrhea, abdominal pain, fever, chills, flank pain, hematemesis, melena. No other associated symptoms, modifiers, recent injuries or sick contacts present at this time. Chief Complaint: Urinary Time Seen by MD: 03:50 Primary Care Provider: VICENTA Rios notes: Medications, Allergies Allergies: Coded Allergies: NO KNOWN ALLERGIES (Unverified , 01/05/19) Home Meds Active Scripts Albuterol Sulfate (Albuterol Sulfate Hfa) 108 Mcg/Act Aer, 108 MCG IN Q4HP PRN, #1 AER Prov:JUAN DIEGO ROSENBERG PAC 08/09/24 Acetaminophen (Acetaminophen) 500 Mg Tab, 500 MG PO Q4HP PRN, #30 TAB Prov:JUAN DIEGO ROSENBERG PAC 08/09/24 Benzonatate (Benzonatate) 100 Mg Cap, 1 CAP PO Q8HP PRN, #30 CAP Prov:JUAN DIEGO ROSEBNERG PAC 08/09/24 Amoxicillin & Pot Clavulanate (AUGMENTIN TABLET) 875 Mg Tb, 875 MG PO BID for 7 Days, #14 TAB Prov:JUAN DIEGO ROSENBERG PAC 08/09/24 Azithromycin (ZITHROMAX TABLET) 250 Mg Tb, 250 MG PO DAILY for 4 Days, #4 TAB Prov:JUAN DIEGO ROSENBERG PAC 08/09/24 Sulfamethoxazole W/Trimethopri (Bactrim Ds Tablet) 1 Tab Tb, 1 TAB PO BID for 10 Days, #20 TAB Prov:JEY EVANS 01/18/24 Information Source: Patient Mode of Arrival: Ambulatory Severity: Moderate Timing: Days Duration: Since onset Prehospital treatment: None Onset: Spontaneous Symptoms: Hematuria History of: UTI Location: None Penile discharge: None Modifying factors: None associated signs and symptoms: Hematuria Past Medical History PAST MEDICAL HISTORY: Cancer, CKF, Gout, HTN Surgical History: Denies all surgeries Family History Family History: Reviewed,noncontributory to illness Social History Smoker: Non-Smoker Alcohol: Heavy Drugs: Denies Drug Use Lives In: Home Constitutional: denies: chills, diaphoresis, fatigue, fever, malaise, sweats, weakness, others EENTM: denies: blurred vision, double vision, ear bleeding, ear discharge, ear drainage, ear pain, ear ringing, eye pain, eye redness, hearing loss, mouth pain, mouth swelling, nasal discharge, nose bleeding, nose congestion, nose pain, photophobia, tearing, throat pain, throat swelling, voice changes, others Respiratory: denies: cough, hemoptysis, orthopnea, SOB at rest, shortness of breath, SOB with excertion, stridor, wheezing, others Cardiovascular: denies: chest pain, dizzy spells, diaphoresis, Dyspnea on exertion, edema, irregular heart beat, left arm pain, lightheadedness, palpitations, PND, syncope, others Gastrointestinal: denies: abdomen distended, abdominal pain, blood streaked bowels, constipated, diarrhea, dysphagia, difficulty swallowing, hematemesis, melena, nausea, poor appetite, poor fluid intake, rectal bleeding, rectal pain, vomiting, others Genitourinary: reports: dysuria, hematuria; denies: burning, flank pain, frequency, incontinence, penile discharge, penile sore, pain, testicle pain, testicle swelling, urgency, others Neurological: denies: dizziness, fainting, headache, left sided numbness, left sided weakness, numbness, paresthesia, pre-existing deficit, right sided numbness, right sided weakness, seizure, speech problems, tingling, tremors, wea kness, others Musculoskeletal: denies: back pain, gout, joint pain, joint swelling, muscle pain, muscle stiffness, neck pain, others Integumetry: denies: bruises, change in color, change in hair/nails, dryness, l aceration, lesions, lumps, rash, wounds, others Allergic/Immunocompromised: denies: Difficulty Healing, Frequent Infections, Hives, Itching, others Hematologic/Lymphatic: denies: anemia, blood clots, easy bleeding, easy bruising, swollen glands, others Endocrine: denies: excessive hunger, excessive sweating, excessive thirst, excessive urination, flushing, intolerance to cold, intolerance to heat, unexplained weight gain, unexplained weight loss, others Psychiatric: denies: anxiety, bipolar disorder, depression, hopeless, panic disorder, schizophrenia, sleepless, suicidal, others All Other Systems: Reviewed and Negative Physical Exam General Appearance: Normal HEENT: Normal ENT Inspection, Pharynx Normal, TMs Normal Neck: Full Range of Motion, Non-Tender, Normal, Normal Inspection Respiratory: Chest Non-Tender, Lungs Clear, No Accessory Muscle Use, No Respiratory Distress, Normal Breath Sounds Cardiovascular: No Edema, No JVD, No Murmur, No Gallop, Normal Peripheral Pulses, Regular Rate/Rhythm Breast Exam: Deferred Gastrointestinal: No Organomegaly, Non Tender, No Pulsatile Mass, Normal Bowel Sounds, Soft Genitalia: Deferred Pelvic: Deferred Rectal: Deferred Extremities: No calf tenderness, Normal capillary refill, Normal inspection, Normal range of motion, Non-tender, No pedal edema Musculoskeletal : Apperance: Normal Neurologic: Alert, paying teller II-XII nml as Tested, No Motor Deficits, Normal Affect, Normal Mood, No Sensory Deficits Cerebellar Function: Normal Reflexes: Normal Skin: Dry, Normal Color, Warm Lymphatic: No Adenopathy Was a procedure done? Was a procedure done?: No Differential Diagnosis Kidney stone (Female): , Bowel obstruction, Pancreatitis, Pyelonephritis, Urolithiasis, Other Kidney stone (Male): Renal failure, Renal infarction, Urinary tract infection, Other X-Ray, Labs, Meds, VS Vital Signs Date Time Temp Pulse Resp B/P (MAP) Pulse Ox O2 Delivery O2 Flow Rate FiO2 12/17/24 05:11 102 17 169/104 (125) 96 12/17/24 04:47 218/146 12/17/24 03:52 120 21 97 Room Air* 0 21 12/17/24 03:35 98.5 120 20 229/141 (170) 96 98.5 12/17/24 03:27 129 12/17/24 03:12 98.1 133 18 233/141 96 98.1 Lab Test 12/17/24 04:03 12/17/24 03:57 Range/Units White Blood Count 10.6 4.4-10.8 10^3/uL Red Blood Count 3.36 L 4.5-5.90 10^6/uL Hemoglobin 10.0 L 13.5-17.5 g/dL Hematocrit 30.3 L 41.0-53.0 % Mean Corpuscular Volume 89.9 80.0-100.0 fL Mean Corpuscular Hemoglobin 29.6 28.0-32.0 pg Mean Corpuscular Hemoglobin Concent 32.9 32.0-36.0 g/dL Red Cell Distribution Width 20.4 H 11.8-14.3 % Platelet Count 271 140-450 10^3/uL Mean Platelet Volume 8.8 6.9-10.8 fL Neutrophils (%) (Auto) 37.0-80.0 % Lymphocytes (%) (Auto) 10.0-50.0 % Monocytes (%) (Auto) 0.0-12.0 % Basophils (%) (Auto) 0.0-2.0 % Neutrophils # (Auto) 1.6-8.6 10 ^3/uL Lymphocytes # (Auto) 0.4-5.4 10 ^3/uL Monocytes # (Auto) 0-1.3 10 ^3/uL Differential Total Cells Counted 100.0 100 Neutrophils % (Manual) 31 L 37.0-80.0 Band Neutrophils % (Manual) 0 Lymphocytes % (Manual) 63 H 10.0-50.0 Monocytes % (Manual) 3 0-12 Eosinophils % (Manual) 1 0-7 Basophils % (Manual) 0 0.0-2.0 Metamyelocytes % (manual) 0 Myelocytes % (Manual) 0 Promyelocytes % (Manual) 0 Blast Cells % (Manual) 0 Nucleated Red Blood Cells 1.0 % Reactive Lymphocytes 2 Platelet Estimate Adequate Anisocytosis (manual) Slight Schistocytes Few Prothrombin Time 10.9 9.3-11.8 sec Prothrombin Time INR 1.03 0.9-1.15 Activated Partial Thromboplast Time 25.9 24.5-34.5 SEC Sodium Level 141 136-145 mmol/L Potassium Level 4.2 3.5-5.1 mmol/L Chloride Level 108 H 98-107 mmol/L Carbon Dioxide Level 20 20-31 mmol/L Anion Gap 13 5-15 Blood Urea Nitrogen 22 9-23 mg/dL Creatinine 1.62 H 0.700-1.30 mg/dL Glomerular Filtration Rate Calc 48 >90 mL/min BUN/Creatinine Ratio 13.6 10.0-20.0 Serum Glucose 101 74-106 mg/dL Calcium Level 9.3 8.7-10.4 mg/dL Urine Color Dark-red Yellow Urine Clarity Ex.turbid Clear Urine pH 6.0 5.0-9.0 Urine Specific [place] 1.017 1.001-1.035 Urine Protein 1+ H Negative Urine Ketones Negative Negative Urine Blood 3+ H Negative /uL Urine Nitrite Negative Negative Urine Bilirubin 1+ Negative Urine Urobilinogen 2 H Negative mg/dL Urine Leukocyte Esterase 1+ Negative /uL Urine RBC None seen 0 - 3 /hpf Urine Microscopic WBC 0-3 /HPF Urine Squamous Epithelial Cells None seen <5 /hpf Urine Bacteria None seen None Seen /hpf Urine Glucose Normal Normal mg/dL Current Medications Medications (Trade) Dose Ordered Sig/Jamie Route Start Time Stop Time Status Last Admin Hydralazine HCl (Apresoline Injection) 20 mg ONCE ONCE IV 12/17/24 04:15 12/17/24 04:16 DC 12/17/24 04:47 [place] [id number] Ph: [phone] DIAGNOSTIC IMAGING Diagnostic Imaging Report : [id number] Signed PATIENT: KELVIN BLANCACCT: [id number] UNIT: [id number] : 1960 LOC: ER ROOM / BED: / AGE / SEX: 64 / M ADM STATUS: REG ER SERVICE ORDERING PHYSICIAN: KAJAL TRUJILLO MD PROCEDURE(s): ABPL - CT AB PEL WO CON-NO ORAL OR IV REASON: hematuria , prostate cancer ORDER NUMBER(s): [id number], ACCESSION NUMBER(s): [id number] Exam: CT CT AB PEL WO CON-NO ORAL OR IV History: hematuria , prostate cancer Comparison Study: CT CT AB PEL WO CON-NO ORAL OR IV on DOS: 01/18/24, PELVIS AP on DOS: 04/08/21 Technique: Multidetector spiral CT of the abdomen and pelvis was performed from lung bases to pubic symphysis. Imaging was performed without intravenous contrast. Coronal and sagittal multiplanar reformats were obtained from the axial data set by the technologist. Radiation Dose : 1. Abdomen/Pelvis: CTDIvol 17.4 mGy, DLP 1063.8 mGy*cm. Findings: Evaluation of vasculature and solid organs is limited due to lack of intravenous contrast use. Lung Bases: Lung bases are clear. Visualized portions of the heart and pericardium are unremarkable. Liver: The liver is normal in size. No focal lesions. Diffusely hypoattenuating liver parenchyma consistent with hepatic steatosis. Gallbladder and Biliary Tree: The gallbladder is unremarkable. No intrahepatic or extrahepatic biliary ductal dilatation. Spleen: Unremarkable Pancreas: The pancreas is grossly unremarkable. Adrenal Glands: Unremarkable Kidneys: Severe left and moderate right hydroureteronephrosis. No intrarenal calculi. GI tract: The stomach is grossly normal in appearance. No evidence of small bowel wall thickening or abnormal dilatation to suggest bowel obstruction. The colon is unremarkable. The appendix is visualized and is normal. Peritoneum/mesentery/retroperitoneum. No evidence of free intraperitoneal air. No ascites. No evidence of suspicious lymphadenopathy. Abdominal Wall: Unremarkable. Vasculature: The visualized abdominal aorta is normal in size and caliber. Evaluation of abdominal and pelvic vessels is limited due to lack of intravenous contrast. Urinary Bladder: Urinary bladder is distended with eccentric soft tissue thickening along the right posterolateral urinary bladder wall that measures 6.7 cm in AP dimension by 1.7 cm in transverse dimension. Pelvic Organs: Prostate is not enlarged. Musculoskeletal: No suspicious focal bony lesions, acute fractures or dislocation. Bilateral hip joint space narrowing. Multilevel lumbar spondylosis. IMPRESSION: 1. Distended urinary bladder with eccentric masslike thickening along the right posterolateral bladder wall measuring up to 1.7 cm in thickness. This is concerning for malignancy in the appropriate clinical setting. 2. Severe left and moderate right hydroureteronephrosis which may be due to obstruction at the level of the urinary bladder. No obstructing stones. 3. Hepatic steatosis. 4. No suspicious bone lesions. ATED BY: MISTI FARAH MD DICTATED DATE/TIME: 12/17/24518 SIGNED BY: MISTI FARAH MD SIGNED DATE/TIME: 12/17/24518 CC: Time of 1ST Reevaluation: 04:20 Reevaluation 1ST: Unchanged Patient Education/Counseling: Diagnosis, Treatment, Prognosis Family Education/Counseling: No Family Present Additional Information The following tests were ordered, and results were reviewed by me: EKG, CBC, UA, PTPTT, BMP, CT AB PEL WO CON I reviewed and agreed with the following test results read by other providers: CT AB PEL WO CON I discussed treatment and results with medical personnel and: patient Comprehensive systems review obtained and negative except for what is stated in the HPI. SEPSIS Sepsis Screen Date sepsis recognized/suspect: Dec 17, 2024 Time Sepsis recognized/suspect: 355 Recent Procedure: No On Antibiotic Therapy: No Respiratory Rate >20: No Heart Rate >90: No Temp<36 C (96.8 F) or >38.3 C: No SBP <90 or MAP <65 mmHG: No New Acute Mental Status Change: No Is the patient on CPAP, BIPAP,: No Physician Orders Straightcath If Unable To Void (12/17/24 03:56) Ct Ab Pel Wo Con-No Oral Or Iv (12/17/24 04:19) Head Without Contrast (12/17/24 04:19) Vital Signs Date Time Temp Pulse Resp B/P (MAP) Pulse Ox O2 Delivery O2 Flow Rate FiO2 12/17/24 05:11 102 17 169/104 (125) 96 12/17/24 04:47 218/146 12/17/24 03:52 120 21 97 Room Air* 0 21 12/17/24 03:35 98.5 120 20 229/141 (170) 96 98.5 12/17/24 03:27 129 12/17/24 03:12 98.1 133 18 233/141 96 98.1 Laboratory Tests Test 12/17/24 04:03 White Blood Count 10.6 10^3/uL (4.4-10.8) Medications Medications Dose Ordered Sig/Jamie Route Start Time Stop Time Status Last Admin Dose Admin Hydralazine HCl 20 mg ONCE ONCE IV 12/17/24 04:15 12/17/24 04:16 DC 12/17/24 04:47 Departure 1 Departure Time of Disposition: 05:36 Impression: Primary Impression: Acute UTI (urinary tract infection) Additional Impressions: Hematuria Hypertensive urgency Acute renal injury Disposition: ADMITTED INPATIENT Admit to: [facility] Condition: Guarded Discharged With: Self Comments Hematuria in 64-year-old Male with History of Prostate Cancer Chief Complaint: Hematuria for 2 days History of Present Illness: Patient is a 64-year-old male with a history of prostate cancer and COPD who presents to the ED with complaints of hematuria for the past two days. He denies dysuria, fevers, or flank pain. The patient appears mildly uncomfortable but is alert and oriented. Of note, the patient presented with significantly elevated blood pressure and tachycardia, consistent with hypertensive urgency. Initial laboratory studies reveal mild anemia, acute kidney injury, and urinalysis positive for blood, protein, bilirubin, and leukocytes, suggesting a urinary tract infection. Review of Systems: Constitutional: Denies fever. Genitourinary: Reports hematuria for 2 days. Denies dysuria or flank pain. Cardiovascular: No chest pain reported. Respiratory: No shortness of breath reported. Gastrointestinal: No abdominal pain reported. Musculoskeletal: No joint pain or swelling reported. Neurological: No headaches or dizziness reported. All other systems reviewed and negative. 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 Medications administered in ED: - Hydralazine 20 mg IV - Ceftriaxone (Rocephin) IV - IV fluids Allergies: No known drug allergies documented. Past Medical History: 1. Prostate cancer 2. Chronic Obstructive Pulmonary Disease (COPD) 3. Possible hypertension (given current presentation) Vital Signs: Blood Pressure: 233/141 mmHg (hypertensive) Heart Rate: 133 bpm (tachycardic) Temperature: 98.1F (afebrile) Respiratory Rate: Not documented Oxygen Saturation: Not documented Physical Exam: General: Patient appears mildly uncomfortable but in no acute distress. Cardiovascular: Tachycardic at 133 bpm. Other findings not documented. Respiratory: Not documented. Abdominal: No abdominal tenderness noted. Genitourinary: No CVA tenderness noted. Neurological: Not documented. Skin: Not documented. Lab Results: CBC: - Hemoglobin: 10 g/dL (low) - Hematocrit: 30% (low) - WBC: 10.6 K/uL (normal) - Platelets: 271 K/uL (normal) Chemistry: - BUN: 22 mg/dL (elevated) - Creatinine: 1.62 mg/dL (elevated, indicating acute kidney injury) - Other chemistry values unremarkable Urinalysis: - Blood: 3+ (abnormal) - Protein: 1+ (abnormal) - Bilirubin: 1+ (abnormal) - Leukocytes: 1+ (abnormal) Imaging and Other Relevant Results: No imaging studies documented in refrigerator cabinetmaker. Medical Decision Making: Summary Statement: 64-year-old male with history of prostate cancer and COPD presenting with hematuria, hypertensive urgency, acute kidney injury, and urinary tract infection requiring admission. Problem List: 1. Hematuria 2. Hypertensive urgency 3. Acute kidney injury 4. Urinary tract infection 5. History of prostate cancer 6. COPD Differential Diagnosis: For hematuria: UTI, prostate cancer recurrence/progression, nephrolithiasis, glomerulonephritis, medication effect, trauma. For hypertension: essential hypertension, renal artery stenosis, pheochromocytoma, primary aldosteronism. For PATRICIA: pre-renal (dehydration), intrinsic renal (ATN, glomerulonephritis), post-renal (obstruction from prostate cancer). ED Course: Patient received IV fluids for hydration, hydralazine 20 mg IV for blood pressure control, and IV ceftriaxone for empiric treatment of UTI. Blood pressure improved after intervention. Decision made to admit patient for further management of multiple acute issues. Assessment and Plan: 1. Hematuria: - Likely multifactorial etiology including UTI and possible relation to history of prostate cancer - Will monitor urine output and character - Urology consultation recommended during admission - Consider cystoscopy if hematuria persists after treatment of UTI 2. Hypertensive Urgency: - Successfully treated with hydralazine 20 mg IV in ED with improvement noted - Continue blood pressure monitoring - Initiate or adjust oral antihypertensive medications as appropriate - Evaluate for end-organ damage 3. Acute Kidney Injury: - Creatinine elevated at 1.62 mg/dL - Continue IV hydration - Monitor renal function with serial creatinine measurements - Avoid nephrotoxic medications 4. Urinary Tract Infection: - Initiated IV ceftriaxone in ED - Continue antibiotic therapy - Adjust based on urine culture results when available 5. History of Prostate Cancer: - Obtain previous oncology records - Consider PSA level - Oncology consultation recommended during admission 6. COPD: - Continue home medications as appropriate - Monitor oxygen saturation Disposition: Admit to medical floor for management of above issues. Additional Notes: Patient admitted for hematuria, UTI, PATRICIA, and hypertensive urgency Billing Information: ICD-10: R31.0 - Gross hematuria ICD-10: N39.0 - Urinary tract infection, site not specified ICD-10: N17.9 - Acute kidney failure, unspecified ICD-10: I16.1 - Hypertensive urgency ICD-10: C61 - Malignant neoplasm of prostate ICD-10: J44.9 - Chronic obstructive pulmonary disease, unspecified Critical Care Note Critical Care Time?: Yes (35 min-critical care time only) Critical care comment: Total critical care time: Approximately 36 minutes Due to a high probability of clinically significant, life threatening deterioration, the patient required my highest level of preparedness to intervene emergently and I personally spent this critical care time directly and personally managing the patient. This critical care time included obtaining a history; examining the patient; pulse oximetry; ordering and review of studies; arranging urgent treatment with development of a management plan; evaluation of patient's response to treatment; frequent reassessment; and, discussions with other providers. This critical care time was performed to assess and manage the high probability of imminent, life-threatening deterioration that could result in multi-organ failure. It was exclusive of separately billable procedures and treating other patients. Stability Stability form required: No I personally scribed for KAJAL TRUJILLO MD ([email or web address]) on 12/17/24 at 04:01. Electronically submitted by Shari Bhakta ([email or web address]). I personally scribed for KAJAL TRUJILLO MD ([email or web address]) on 12/17/24 at 04:06. Electronically submitted by Shari Bhakta ([email or web address]). I personally scribed for KAJAL TRUJILLO MD ([email or web address]) on 12/17/24 at 05:30. Electronically submitted by Shari Bhakta ([email or web address]). KAJAL TRUJILLO MD Dec 17, 2024 04:01
[2024-12-17] MEDS: SODIUM CHLORIDE 0.9% 1,000 ML IVB ONE (04:02)
[2024-12-17] MEDS: hydrALAZINE HCL 20 MG/ML VL IV ONE ×2 (04:18→04:47)
[2024-12-17 04:35] LABS: Hematocrit 30.3 % (41.0-53.0); Hemoglobin 10.0 g/dL (13.5-17.5); Mean Corpuscular Hemoglobin 29.6 pg (28.0-32.0); Mean Corpuscular Volume 89.9 fL (80.0-100.0)
[2024-12-17 04:36] LABS: Urine Protein, UAD 1+ (Negative)
[2024-12-17 04:39] LABS: Potassium 4.2 mmol/L (3.5-5.1); Sodium 141 mmol/L (136-145)
[2024-12-17 04:40] LABS: Anion Gap 13 (5-15); Calcium 9.3 mg/dL (8.7-10.4)
[2024-12-17 04:45] LABS: BUN/Creatinine Ratio 13.6 (10.0-20.0); Blood Urea Nitrogen 22 mg/dL (9-23); Glucose 101 mg/dL (74-106)
[2024-12-17 04:46] LABS: INR 1.03 (0.9-1.15); Partial Thromboplastin Time 25.9 SEC (24.5-34.5); Prothrombin Time 10.9 sec (9.3-11.8)
--- NOTE | 2024-12-17 04:51 | DVH ---
EXAM: CT HEAD WITHOUT CONTRAST INDICATION: headache TECHNIQUE: CT of the head without intravenous contrast. Radiation Dose : 1. Head: CT Dose: CTDI volume is 67.82 mGy. Dose-length product is 1336.28 mGy*cm The dose indicators for CT are the volume Computed Tomography (CT) Dose Index (CTDIvol) and the Dose Length Product (DLP), and are measured in units of mGy and mGy-cm, respectively. These indicators are not patient dose, but values generated from the CT scanner acquisition factors. The report includes radiation exposure data for exposures received during this examination. COMPARISON: CERVICAL WITHOUT CONTRAST on DOS: 11/17/21, HEAD WITHOUT CONTRAST on DOS: 04/08/21 FINDINGS: There is no evidence of acute intracranial hemorrhage, extra-axial collection, mass effect, midline s hift, herniation or hydrocephalus. The ventricles, sulci and cisterns are age appropriate. The motta-white differentiation is intact. Patchy periventricular and subcortical white matter hypoattenuation is nonspecific but may be related to small vessel ischemic disease. Right maxillary mucosal sinus disease. The remaining visualized paranasal sinuses and mastoid air ce lls are clear. The surrounding soft tissues and osseous structures are unremarkable. IMPRESSION: 1. No acute intracranial abnormality. Radiation optimization: All CT scans at this facility use at least one of these dose optimization monique hniques: automated exposure control mA and/or kV adjustment per patient size (includes targeted exam s where dose is matched to clinical indication) or iterative reconstruction.
[2024-12-17 04:56] LABS: Carbon Dioxide 20 mmol/L (20-31); Chloride 108 mmol/L (98-107)
--- NOTE | 2024-12-17 05:22 | DVH ---
Exam: CT CT AB PEL WO CON-NO ORAL OR IV History: hematuria , prostate cancer Comparison Study: CT CT AB PEL WO CON-NO ORAL OR IV on DOS: 01/18/24, PELVIS AP on DOS: 04/08/21 Technique: Multidetector spiral CT of the abdomen and pelvis was performed from lung bases to pubic s ymphysis. Imaging was performed without intravenous contrast. Coronal and sagittal multiplanar reform ats were obtained from the axial data set by the technologist. Radiation Dose : 1. Abdomen/Pelvis: CTDIvol 17.4 mGy, DLP 1063.8 mGy*cm. Findings: Evaluation of vasculature and solid organs is limited due to lack of intravenous contrast use. Lung Bases: Lung bases are clear. Visualized portions of the heart and pericardium are unremarkable. Liver: The liver is normal in size. No focal lesions. Diffusely hypoattenuating liver parenchyma con sistent with hepatic steatosis. Gallbladder and Biliary Tree: The gallbladder is unremarkable. No intrahepatic or extrahepatic biliar y ductal dilatation. Spleen: Unremarkable Pancreas: The pancreas is grossly unremarkable. Adrenal Glands: Unremarkable Kidneys: Severe left and moderate right hydroureteronephrosis. No intrarenal calculi. GI tract: The stomach is grossly normal in appearance. No evidence of small bowel wall thickening or abnormal dilatation to suggest bowel obstruction. The colon is unremarkable. The appendix is visualiz ed and is normal. Peritoneum/mesentery/retroperitoneum. No evidence of free intraperitoneal air. No ascites. No evidenc e of suspicious lymphadenopathy. Abdominal Wall: Unremarkable. Vasculature: The visualized abdominal aorta is normal in size and caliber. Evaluation of abdominal a nd pelvic vessels is limited due to lack of intravenous contrast. Urinary Bladder: Urinary bladder is distended with eccentric soft tissue thickening along the right p osterolateral urinary bladder wall that measures 6.7 cm in AP dimension by 1.7 cm in transverse dimen wendi. Pelvic Organs: Prostate is not enlarged. Musculoskeletal: No suspicious focal bony lesions, acute fractures or dislocation. Bilateral hip join t space narrowing. Multilevel lumbar spondylosis. IMPRESSION: 1. Distended urinary bladder with eccentric masslike thickening along the right posterolateral bladde r wall measuring up to 1.7 cm in thickness. This is concerning for malignancy in the appropriate cli nical setting. 2. Severe left and moderate right hydroureteronephrosis which may be due to obstruction at the level of the urinary bladder. No obstructing stones. 3. Hepatic steatosis. 4. No suspicious bone lesions.
[2024-12-17 05:28] LABS: Nucleated Red Blood Cells % 1.0 %; Total Cells Counted 100.0 (100)
[2024-12-17 05:29] LABS: Anisocytosis Slight
[2024-12-17 07:30] VITALS: PULSE 113; RESP 18; O2SAT 97
[2024-12-17] MEDS ORDERED: NITROGLYCERIN 0.4 MG SL TAB SL PRN (07:45)
[2024-12-17] MEDS ORDERED: ONDANSETRON HCL 4 MG/2 ML VIAL IV PRN (07:45)
[2024-12-17] MEDS ORDERED: MORPHINE SULFATE INJ 2 MG/ml SYRG IV PRN (07:45)
[2024-12-17] MEDS ORDERED: DOCUSATE SOD 100 MG CAP PO PRN (07:45)
--- NOTE | 2024-12-17 07:58 | DVHHP2 ---
History of Present Illness Reason for Visit: blood in urine History of Present Illness 64-year-old male with a past medical history of BPH, prostate cancer diagnosed approximately two years ago, hypertension, chronic kidney failure, gout affecting the legs, lower extremity nerve and muscle spasms, anxiety, and prior prostate surgery presents with gross hematuria for the past two days. Patients history is inconsistent, but he reports he was previously on oral therapy for prostate cancer and was scheduled for injections, which he discontinued at the end of last year without follow-up with urology. He denies pain, dysuria, fever, or urinary retention. He also reports daily alcohol use, with his last drink last night, and denies a history of withdrawal seizures. On arrival, vitals showed elevated blood pressure up to 230/140. Labs revealed hemoglobin 10.0, creatinine 1.62, otherwise unremarkable CBC. CT imaging demonstrated a urinary bladder eccentric mass with wall thickening of 7 mm, concerning for malignancy and possible obstruction. CT of the chest was unremarkable for metastatic disease. PSA level is pending. Patient was started on normal saline and given IV labetalol for blood pressure control. Will admit for further urologic evaluation and management of hematuria and suspected bladder mass. Past Medical History See HPI above Past Surgical History See HPI above Family History Reviewed, non-contributory to the management of this case. Past Social History Patient does drink daily last drink was last night denies drug or smoking tobacco Review of Systems Constitutional: No: Fever, Chills, Sweats, Weakness, Malaise, Other Eyes: No: Pain, Vision change, Conjunctivae inflammation, Eyelid inflammation, Other, Redness ENT: No: Ear pain, Ear discharge, Nose pain, Nose discharge, Nose congestion, Mouth pain, Mouth swelling, Throat pain, Throat swelling, Other Respiratory: No: Cough, Dry, Shortness of breath, SOB with excertion, Wheezing, Hemoptysis, Pleuritic Pain, Sputum, Wheezing, Other Cardiovascular: No: Chest Pain, Palpitations, Orthopnea, Paroxysmal Noc. Dyspnea, Edema, Lt Headedness, Other Gastrointestinal: No: Nausea, Vomiting, Abdominal Pain, Diarrhea, Constipation, Melena, Hematochezia, Other Genitourinary: Dysuria; No Frequency, No Incontinence; Hematuria; No Retention, No Other Musculoskeletal: No: other, neck pain, shoulder pain, arm pain, back pain, hand pain, leg pain, foot pain Skin: No: Rash, Lesions, Jaundice, Bruising, Other Neurological: No: Weakness, Numbness, Incoordination, Change in speech, Confusion, Seizures, Other Allergies: Coded Allergies: NO KNOWN ALLERGIES (Unverified , 01/05/19) Medications Current Medications Medications Dose Ordered Sig/Jamie Route Start Time Stop Time Status Last Admin Dose Admin Ceftriaxone Sodium 50 ml @ 100 mls/hr DAILY@09 IV 12/17/24 09:00 UNV Sodium Chloride 1,000 ml @ 100 mls/hr Q10H IV 12/17/24 07:45 UNV Ondansetron HCl 4 mg Q4HP PRN IV 12/17/24 07:45 UNV Docusate Sodium 100 mg BIDPRN PRN PO 12/17/24 07:45 UNV Morphine Sulfate 2 mg Q4HPRN PRN IV 12/17/24 07:45 UNV Nitroglycerin 0.4 mg Q5MINP PRN SL 12/17/24 07:45 UNV Exam Vital Signs Vital Signs Date Time Temp Pulse Resp B/P (MAP) Pulse Ox O2 Delivery O2 Flow Rate FiO2 12/17/24 05:11 102 17 169/104 (125) 96 12/17/24 03:52 Room Air* 0 21 12/17/24 03:35 98.5 98.5 General Appearance: Alert, Oriented X3, Cooperative, No acute distress HEENT: Atraumatic, PERRLA, EOMI, Mucous membr. moist/pink Respiratory: Clear to auscultation, Normal air movement Cardiovascular: Regular rate, Normal S1, Normal S2, No murmurs Abdominal: Normal bowel sounds, Soft, No tenderness, No hepatospenomegaly, No masses Extremities: No clubbing, No cyanosis, No edema, Normal pulses, No tenderness/swelling Skin: No rashes, No breakdown, No significant lesion Neuro: Normal gait, Normal speech, Strength at 5/5 X4 ext, Normal tone, Sensation intact, Cranial nerves 3-12 NL Psych/Mental Status: Mental status NL, Mood NL Labs/Xrays CT scan of the brain unremarkable CT scan abdomen and pelvis shows 1. Distended urinary bladder with eccentric masslike thickening along the right posterolateral bladder wall measuring up to 1.7 cm in thickness. This is concerning for malignancy in the appropriate cli nical setting. 2. Severe left and moderate right hydroureteronephrosis which may be due to obstruction at the level of the urinary bladder. No obstructing stones. 3. Hepatic steatosis. 4. No suspicious bone lesions. I reviewed labs, imaging CT scan abdomen pelvis, EKG and all diagnostic studies on this patient from ED records and the medical chart Labs Test 12/17/24 04:03 12/17/24 03:57 Range/Units White Blood Count 10.6 4.4-10.8 10^3/uL Red Blood Count 3.36 L 4.5-5.90 10^6/uL Hemoglobin 10.0 L 13.5-17.5 g/dL Hematocrit 30.3 L 41.0-53.0 % Mean Corpuscular Volume 89.9 80.0-100.0 fL Mean Corpuscular Hemoglobin 29.6 28.0-32.0 pg Mean Corpuscular Hemoglobin Concent 32.9 32.0-36.0 g/dL Red Cell Distribution Width 20.4 H 11.8-14.3 % Platelet Count 271 140-450 10^3/uL Mean Platelet Volume 8.8 6.9-10.8 fL Neutrophils (%) (Auto) 37.0-80.0 % Lymphocytes (%) (Auto) 10.0-50.0 % Monocytes (%) (Auto) 0.0-12.0 % Basophils (%) (Auto) 0.0-2.0 % Neutrophils # (Auto) 1.6-8.6 10 ^3/uL Lymphocytes # (Auto) 0.4-5.4 10 ^3/uL Monocytes # (Auto) 0-1.3 10 ^3/uL Differential Total Cells Counted 100.0 100 Neutrophils % (Manual) 31 L 37.0-80.0 Band Neutrophils % (Manual) 0 Lymphocytes % (Manual) 63 H 10.0-50.0 Monocytes % (Manual) 3 0-12 Eosinophils % (Manual) 1 0-7 Basophils % (Manual) 0 0.0-2.0 Metamyelocytes % (manual) 0 Myelocytes % (Manual) 0 Promyelocytes % (Manual) 0 Blast Cells % (Manual) 0 Nucleated Red Blood Cells 1.0 % Reactive Lymphocytes 2 Platelet Estimate Adequate Anisocytosis (manual) Slight Schistocytes Few Prothrombin Time 10.9 9.3-11.8 sec Prothrombin Time INR 1.03 0.9-1.15 Activated Partial Thromboplast Time 25.9 24.5-34.5 SEC Sodium Level 141 136-145 mmol/L Potassium Level 4.2 3.5-5.1 mmol/L Chloride Level 108 H 98-107 mmol/L Carbon Dioxide Level 20 20-31 mmol/L Anion Gap 13 5-15 Blood Urea Nitrogen 22 9-23 mg/dL Creatinine 1.62 H 0.700-1.30 mg/dL Glomerular Filtration Rate Calc 48 >90 mL/min BUN/Creatinine Ratio 13.6 10.0-20.0 Serum Glucose 101 74-106 mg/dL Calcium Level 9.3 8.7-10.4 mg/dL Urine Color Dark-red Yellow Urine Clarity Ex.turbid Clear Urine pH 6.0 5.0-9.0 Urine Specific [place] 1.017 1.001-1.035 Urine Protein 1+ H Negative Urine Ketones Negative Negative Urine Blood 3+ H Negative /uL Urine Nitrite Negative Negative Urine Bilirubin 1+ Negative Urine Urobilinogen 2 H Negative mg/dL Urine Leukocyte Esterase 1+ Negative /uL Urine RBC None seen 0 - 3 /hpf Urine Microscopic WBC 0-3 /HPF Urine Squamous Epithelial Cells None seen <5 /hpf Urine Bacteria None seen None Seen /hpf Urine Glucose Normal Normal mg/dL SEPSIS Sepsis Screen Date sepsis recognized/suspect: Dec 17, 2024 Time Sepsis recognized/suspect: 355 Recent Procedure: No On Antibiotic Therapy: No Respiratory Rate >20: No Heart Rate >90: No Temp<36 C (96.8 F) or >38.3 C: No SBP <90 or MAP <65 mmHG: No New Acute Mental Status Change: No Is the patient on CPAP, BIPAP,: No Physician Orders Straightcath If Unable To Void (12/17/24 03:56) Ct Ab Pel Wo Con-No Oral Or Iv (12/17/24 04:19) Head Without Contrast (12/17/24 04:19) Ceftriaxone 1gm/50ml D5w (Rocephin) (12/17/24 09:00) Ceftriaxone 1gm/50ml D5w (Rocephin) (12/17/24 07:45) Labetalol Hcl (Labetalol Hcl) (12/17/24 07:45) [address] QSHIFT (12/17/24 07:43) Urine Ethanol (12/17/24 07:43) Etoh Withdrawal Assessment (12/17/24 07:43) Kidney (12/17/24 07:43) Type And Screen (12/17/24 07:43) Psa Total+% Free (12/17/24 07:43) Carcinoembryonic Antigen (12/17/24 07:43) * Urology Consult (12/17/24 07:43) Admit (12/17/24 07:43) Allergies (12/17/24 07:43) Code Status (12/17/24 07:43) Sodium Chloride 0.9% (12/17/24 07:45) Ondansetron Hcl (Zofran) (12/17/24 07:45) Docusate Sodium Capsule (Colace Capsule) (12/17/24 07:45) Complete Blood Count (12/18/24 04:00) Comprehensive Metabolic Panel (12/18/24 04:00) Cardiac Diet-2gna,Lofat,Lochol (12/17/24 Breakfast) Condition: Stable (12/17/24 07:43) BRP (12/17/24 07:43) Morphine Sulfate Injection (12/17/24 07:45) Sequential Compression Device (12/17/24 ) Nitroglycerin Sublingual (Ntrostat Subli (12/17/24 07:45) Stat Ekg For Chest Pain (12/17/24 07:43) Notify Md Of Changes From Base (12/17/24 07:43) Scanning Coordinator For 24 Hours (12/17/24 07:43) Emergency Dysrhythmia Protocol (12/17/24 07:43) Rhythm Strips Once Every Shift (12/17/24 07:43) Oxygen By Nasal Cannula (12/17/24 07:43) Strict I & O QSHIFT (12/17/24 07:43) Vital Signs Date Time Temp Pulse Resp B/P (MAP) Pulse Ox O2 Delivery O2 Flow Rate FiO2 12/17/24 05:11 102 17 169/104 (125) 96 12/17/24 04:47 218/146 12/17/24 03:52 120 21 97 Room Air* 0 21 12/17/24 03:39 114 12/17/24 03:35 98.5 120 20 229/141 (170) 96 98.5 12/17/24 03:27 129 12/17/24 03:12 98.1 133 18 233/141 96 98.1 Laboratory Tests Test 12/17/24 04:03 White Blood Count 10.6 10^3/uL (4.4-10.8) Medications Medications Dose Ordered Sig/Jamie Route Start Time Stop Time Status Last Admin Dose Admin Hydralazine HCl 20 mg ONCE ONCE IV 12/17/24 04:15 12/17/24 04:16 DC 12/17/24 04:47 20 MG Assessment/Plan Assessment/Plan 64 yr old male with Gross hematuria and urinary bladder mass concerning for malignancy in the setting of prior prostate cancer. acute Gross hematuria with bladder mass and cystitis found on ct scan found to have bladder mass Admit for urologic work-up ordered cote to provide Continuous bladder irrigation PRN Monitor hemoglobin and hematocrit Maintain Cote catheter for drainage and monitoring ordered ceftriaxone for now ordered urine culture fu results acute Urinary bladder mass CT findings concerning for malignancy Urology consult for consideration of cystoscopy and biopsy PSA pending acute bilateral kidney hydroureteronephrosis ordered cote for now ordered urology consult fu results strict i/o ordered renal us fu results acute Hypertensive urgency Received IV labetalol in ED Monitor BP closely, adjust antihypertensive regimen as needed acute on chronic blood loss anemia likley from bladder mass ordered type and screen monitor hemoglobin downtrend History of prostate cancer Discontinued treatment last year without follow-up can consider Oncology consult pending urology findings Chronic kidney disease Monitor renal function and avoid nephrotoxic agents Adjust medications per GFR if worsening can consider renal consult Alcohol use [facility] protocol for withdrawal monitoring Thiamine, folate supplementation via bananna bag monitor for etoh wihdrawl chronic problems Prostate cancer BPH Hypertension Chronic kidney disease Gout Anxiety disorder FEN / PPx Fluids: IV NS maintenance Electrolytes: Monitor daily Nutrition: Regular diet DVT Prophylaxis: SCDs, hold anticoagulation due to hematuria GI Prophylaxis: PPI Disposition Admit to medicine for further work-up of bladder mass and hematuria with urology consult. Monitor blood pressure and manage hypertensive urgency. Plan discussed with: Patient My Orders Orders - BEN GLEZ DNP Procedure Category Date Status Time Ceftriaxone 1gm/50ml PHA 12/17/24 Logged D5w (Rocephin) 09:00 Ceftriaxone 1gm/50ml PHA 12/17/24 Logged D5w (Rocephin) 07:45 Labetalol Hcl PHA 12/17/24 Logged (Labetalol Hcl) 07:[address] [facility] 12/17/24 In Process 07:43 Urine Ethanol LAB 12/17/24 Logged 07:43 Etoh Withdrawal [facility] 12/17/24 In Process Assessment 07:43 Kidney US 12/17/24 Logged 07:43 Type And Screen BBK 12/17/24 Logged 07:43 Psa Total+% Free LAB 12/17/24 Logged 07:43 Carcinoembryonic LAB 12/17/24 Logged Antigen 07:43 * Urology Consult CONS 12/17/24 Transmitted 07:43 Admit ADMIT 12/17/24 Transmitted 07:43 Allergies [facility] 12/17/24 In Process 07:43 Code Status CODE 12/17/24 Transmitted 07:43 Sodium Chloride 0.9% PHA 12/17/24 Logged 07:45 Ondansetron Hcl PHA 12/17/24 Logged (Zofran) 07:45 Docusate Sodium [facility] 12/17/24 Logged Capsule (Colace 07:45 Complete Blood Count LAB 12/18/24 Verified 04:00 Comprehensive LAB 12/18/24 Verified Metabolic Panel 04:00 Cardiac DIET 12/17/24 Transmitted Diet-2gna,Lofat,Lochol Breakfast Condition: Stable [facility] 12/17/24 In Process 07:43 BRP [facility] 12/17/24 In Process 07:43 Morphine Sulfate [facility] 12/17/24 Logged Injection 07:45 Sequential [facility] 12/17/24 In Process Compression Device Nitroglycerin [facility] 12/17/24 Logged Sublingual (Ntrostat 07:45 Stat Ekg For Chest [facility] 12/17/24 In Process Pain 07:43 Notify Md Of Changes [facility] 12/17/24 In Process From Base 07:43 Scanning Coordinator For [facility] 12/17/24 In Process 24 Hours 07:43 Emergency Dysrhythmia [facility] 12/17/24 In Process Protocol 07:43 Rhythm Strips Once [facility] 12/17/24 In Process Every Shift 07:43 Oxygen By Nasal RT 12/17/24 Transmitted Cannula 07:43 Strict I & O [facility] 12/17/24 In Process 07:43 Date of Service: Dec 17, 2024 Billing Provider: BEN GLEZ DNP Common Visit Codes: [id number] INP/OBS CARE (HIGH), [id number] CARE 30- 74 MIN (Total critical care time: Approximately 45 minutes This critical care time included obtaining a history; examining the patient; pulse oximetry; ordering and review of studies; arranging urgent treatment with development of a management plan; evaluation of patient's response to treatment; frequent reassessment; and, discussions with other providers.) BEN GLEZ [facility] Dec 17, 2024 07:58
--- NOTE | 2024-12-17 09:11 | DVH ---
US KIDNEY HISTORY: eval for bladder obstruction COMPARISON: 12/17/24 TECHNIQUE: Transverse and longitudinal grayscale and color doppler images were obtained of the kidney s and bladder. FINDINGS: Right kidney: Size: 9.2 cm Cortical thickness: Normal Echogenicity: Normal Stones: None Masses: None Hydronephrosis: yes Ureters: Not well visualized. Other: None Left kidney: Size: 9.9 cm Cortical thickness: Normal Echogenicity: Normal Stones: None Masses: None Hydronephrosis: yes Ureters: Not well visualized. Other: None Bladder: 7.5 x 2.2 x 5.6 cm echogenic structure at the base bladder could be a mass. Other: None. IMPRESSION: 7.5 x 2.2 x 5.6 cm echogenic structure at the base bladder could be a mass. Mild right and mild to moderate left hydronephrosis with ureteral jets seen.
[2024-12-17] MEDS: cefTRIAXone 1GM/50ML D5W 50 ML IV ONE (09:35)
[2024-12-17] MEDS: LABETALOL HCL 20 MG/4 ML VL IV ONE (09:36)
[2024-12-17] MEDS: SODIUM CHLORIDE 0.9% 1,000 ML IV SCH (09:36)
[2024-12-17] MEDS: LIDOCAINE 2% JELLY 11ml (GLYDO) UR ONE (10:14)
[2024-12-17] MEDS: MORPHINE SULFATE 4 MG/ML SYR/VIAL IV PRN (11:10)
[2024-12-17] MEDS: ONDANSETRON HCL 4 MG/2 ML VIAL IV PRN (11:11)
--- NOTE | 2024-12-17 12:10 | DVHPN2 ---
Assessment/Plan Assessment/Plan progress note 64 M with prostate cancer (2022) HTN, CKD 3b admitted for gross hematuria. patient is currently on CBI physical exam aox4 in pain PERLLA no JVD MMM clear breath sounds s1 s2 rrr abdomen distended gross hematuria seen no LE edema labs ekg imaging reviewed assessment and plan gross hematuria, likely related to prostate cancer CKD3b HTN interactable pain anemia acute loss on chronic dz alcohol use bladder mass vs clot hydroureteronephrosis CBI trend H/H uro consult CIWA protocol pain management thiamine and folate diet renal dvt ppx hold full code Plan discussed with: Patient My Orders Orders - JORGE LOGAN MD Procedure Category Date Status Time Thiamine 100mg Iv PHA 12/18/24 Verified Daily 10:00 Thiamine 100mg Iv Now PHA 12/17/24 Verified 12:15 Folic Acid 1mg Iv PHA 12/17/24 Verified Daily 12:15 Etoh Withdrawal [facility] 12/17/24 Verified Assessment 12:09 Etoh Withdrawal [facility] 12/17/24 Verified Assessment 12:09 Date of Service: Dec 17, 2024 Billing Provider: JORGE LOGAN MD Common Visit Codes: [id number] INP/OBS CARE(HIGH) JORGE LOGAN MD Dec 17, 2024 12:10
[2024-12-17] MEDS ORDERED: FOLIC ACID 1 MG in D5W 5% 50 ML INJ SCH (12:15)
[2024-12-17 13:11] LABS: Hemoglobin 9.2 g/dL (13.5-17.5)
[2024-12-17 13:15] LABS: Hematocrit 29.4 % (41.0-53.0); Mean Corpuscular Hemoglobin 30.0 pg (28.0-32.0); Mean Corpuscular Volume 95.6 fL (80.0-100.0)
[2024-12-17] MEDS: THIAMINE 100mg/ml INJ (200mg/2ml VIAL) IV ONE (14:12)
[2024-12-17] MEDS: ONDANSETRON HCL 4 MG/2 ML VIAL IV ONE (14:13)
[2024-12-17] MEDS: HYDROmorphone HCL 2 MG/ML VL/or syr IV ONE (14:13)
[2024-12-17 14:22] LABS: Anisocytosis Slight; Total Cells Counted 100.0 (100)
--- NOTE | 2024-12-17 14:40 | DVH ---
US BLADDER HISTORY: CONFIRM PARNELL PLACEMENT COMPARISON: US KIDNEY on DOS: 12/17/24, PELVIS AP on DOS: 04/08/21 TECHNIQUE: Transverse and longitudinal grayscale and color doppler images were obtained of the kidney s and bladder. FINDINGS: Bladder: Parnell seen in the bladder. Other: None. IMPRESSION: Parnell seen in the bladder.
--- NOTE | 2024-12-17 15:59 | DVHINCON2 ---
Date of service: Dec 17, 2024 Referring Physician Hospitalist Reason for Consultation Sudden onset acute gross hematuria History of Present Illness History Source: Patient, Old Records Exam Limitations: Intoxication HPI 64-year-old male with a past medical history of BPH, prostate cancer (MARKOS 7) diagnosed approximately two years ago, non-compliant with ADT and no Hx of radiation, alcoholism, HTN, CKD, gout, and prior prostate surgery presents with gross hematuria for the past two days. The patient is a poor historian. He reports being on oral therapy for his prostate cancer. The patient ran out of his medication 2 months ago and has not followed up with urology. He also reports daily alcohol use, with his last drink last night, and denies a history of withdrawal seizures. On arrival, vitals showed elevated blood pressure up to 230/140. Labs revealed hemoglobin 10.0, creatinine 1.62, otherwise unremarkable CBC. CT imaging demonstrated a urinary bladder eccentric mass with wall thickening of 7 mm, concerning for malignancy and possible obstruction. CT of the chest was unremarkable for metastatic disease. PSA level is pending. Patient was started on normal saline and given IV labetalol for blood pressure control. PT was found to be in acute urinary retention. RN placed a 3 way parnell for CBI however it was evident that the parnell was malpositioned and not in the bladder. Malpositioned parnell was removed. Urology UI ENGINEER Kay Figueroa attempted to place coude catheter after instillation of glydo. Unable to pass coude. Therefore bedside cystoscopy was done a parnell placed over guidewire and confirmed by bedside ultrasound. approx 1 liter of sanguinous urine with clots was noted. patient tolerated well and was medicated for pain. He was grateful for relief. Home Meds Active Scripts Albuterol Sulfate (Albuterol Sulfate Hfa) 108 Mcg/Act Aer, 108 MCG IN Q4HP PRN, #1 AER Prov:JUAN DIEGO ROSENBERG PAC 08/09/24 Acetaminophen (Acetaminophen) 500 Mg Tab, 500 MG PO Q4HP PRN, #30 TAB Prov:JUAN DIEGO ROSENBERG PAC 08/09/24 Benzonatate (Benzonatate) 100 Mg Cap, 1 CAP PO Q8HP PRN, #30 CAP Prov:JUAN DIEGO ROSENBERG PAC 08/09/24 Amoxicillin & Pot Clavulanate (AUGMENTIN TABLET) 875 Mg Tb, 875 MG PO BID for 7 Days, #14 TAB Prov:JUAN DIEGO ROSENBERG PAC 08/09/24 Azithromycin (ZITHROMAX TABLET) 250 Mg Tb, 250 MG PO DAILY for 4 Days, #4 TAB Prov:JUAN DIEGO ROSENBERG PAC 08/09/24 Sulfamethoxazole W/Trimethopri (Bactrim Ds Tablet) 1 Tab Tb, 1 TAB PO BID for 10 Days, #20 TAB Prov:JEY EVANS 01/18/24 Current Meds Past Medical History Cardiac: HTN Renal/: UTI, Benign prostatic enlarg., Hematuria, Prostate cancer Past Surgical History: Other Family History: No pertinent Hx Patient Family History: FH: brain tumor G8 MOTHER Prostate carcinoma G8 FATHER Alocohol: Heavy Drugs: None Domestic Violence: Neg Review of Systems Ears, Nose, & Throat: No symptom reported Eyes: No symptom reported Pulmonary/Respiratory: No symptom reported Cardiovascular: No symptom reported Gastrointestinal: No symptom reported Genitourinary: Hematuria, Retention, Pain Musculoskeletal: No symptom reported Psychiatric: No symptom reported Endocrine: No symptom reported Hemotologic/Lymphatic: No symptom reported H&P Exam Vital Signs Vital Signs Date Time Temp Pulse Resp B/P (MAP) Pulse Ox O2 Delivery O2 Flow Rate FiO2 12/17/24 14:13 104 13 162/100 12/17/24 13:30 98.4 98 98.4 12/17/24 07:30 Room Air* 0 21 General Appeara: Well developed, Well nourished, Normal Appearance, Mild distress, Obese Pulmonary/Respiratory: Normal breath sounds Cardiovascular/Chest: Tachycardia Abdominal Exam: Other (distended, firm, old healed scars) Abdominal Pain Onset Location: Suprapubic Rectal Exam: Deferred Male Genital Exam: Normal genitalia Neuro/Mental St: Alert, Oriented Appearance: Appropriate appearance, Appropriate insight Eye contact/ Speech: Cooperative, Good eye contact, Normal speech Skin Exam: Normal inspection, Warm/dry, Pallor Labs/Xrays Labs Test 12/17/24 12:44 12/17/24 08:14 12/17/24 04:03 12/17/24 03:57 Range/Units White Blood Count 7.8 # 4.4-10.8 10^3/uL Red Blood Count 3.07 L 4.5-5.90 10^6/uL Hemoglobin 9.2 L 13.5-17.5 g/dL Hematocrit 29.4 L 41.0-53.0 % Mean Corpuscular Volume 95.6 # 80.0-100.0 fL Mean Corpuscular Hemoglobin 30.0 28.0-32.0 pg Mean Corpuscular Hemoglobin Concent 31.4 L 32.0-36.0 g/dL Red Cell Distribution Width 20.8 H 11.8-14.3 % Platelet Count 218 140-450 10^3/uL Mean Platelet Volume 8.6 6.9-10.8 fL Neutrophils (%) (Auto) 37.0-80.0 % Lymphocytes (%) (Auto) 10.0-50.0 % Monocytes (%) (Auto) 0.0-12.0 % Basophils (%) (Auto) 0.0-2.0 % Neutrophils # (Auto) 1.6-8.6 10 ^3/uL Lymphocytes # (Auto) 0.4-5.4 10 ^3/uL Monocytes # (Auto) 0-1.3 10 ^3/uL Differential Total Cells Counted 100.0 100 Neutrophils % (Manual) 42 37.0-80.0 Band Neutrophils % (Manual) 0 Lymphocytes % (Manual) 52 H 10.0-50.0 Monocytes % (Manual) 6 0-12 Eosinophils % (Manual) 0 0-7 Basophils % (Manual) 0 0.0-2.0 Metamyelocytes % (manual) 0 Myelocytes % (Manual) 0 Promyelocytes % (Manual) 0 Blast Cells % (Manual) 0 Nucleated Red Blood Cells % Reactive Lymphocytes 0 Platelet Estimate Adequate Anisocytosis (manual) Slight Carcinoembryonic Antigen 2.38 <=5.0 ng/mL Plasma/Serum Blood Alcohol 224.0 H <10 mg/dL Schistocytes Few Prothrombin Time 10.9 9.3-11.8 sec Prothrombin Time INR 1.03 0.9-1.15 Activated Partial Thromboplast Time 25.9 24.5-34.5 SEC Sodium Level 141 136-145 mmol/L Potassium Level 4.2 3.5-5.1 mmol/L Chloride Level 108 H 98-107 mmol/L Carbon Dioxide Level 20 20-31 mmol/L Anion Gap 13 5-15 Blood Urea Nitrogen 22 9-23 mg/dL Creatinine 1.62 H 0.700-1.30 mg/dL Glomerular Filtration Rate Calc 48 >90 mL/min BUN/Creatinine Ratio 13.6 10.0-20.0 Serum Glucose 101 74-106 mg/dL Calcium Level 9.3 8.7-10.4 mg/dL Urine Color Dark-red Yellow Urine Clarity Ex.turbid Clear Urine pH 6.0 5.0-9.0 Urine Specific [place] 1.017 1.001-1.035 Urine Protein 1+ H Negative Urine Ketones Negative Negative Urine Blood 3+ H Negative /uL Urine Nitrite Negative Negative Urine Bilirubin 1+ Negative Urine Urobilinogen 2 H Negative mg/dL Urine Leukocyte Esterase 1+ Negative /uL Urine RBC None seen 0 - 3 /hpf Urine Microscopic WBC 0-3 /HPF Urine Squamous Epithelial Cells None seen <5 /hpf Urine Bacteria None seen None Seen /hpf Urine Glucose Normal Normal mg/dL PATIENT: KELVIN BLANCACCT: [id number] UNIT: [id number] : 1960 LOC: ER ROOM / BED: / AGE / SEX: 64 / M ADM STATUS: REG ER SERVICE 0419 ORDERING PHYSICIAN: KAJAL TRUJILLO MD PROCEDURE(s): ABPL - CT AB PEL WO CON-NO ORAL OR IV REASON: hematuria , prostate cancer ORDER NUMBER(s): [id number], ACCESSION NUMBER(s): [id number] Exam: CT CT AB PEL WO CON-NO ORAL OR IV History: hematuria , prostate cancer Comparison Study: CT CT AB PEL WO CON-NO ORAL OR IV on DOS: 01/18/24, PELVIS AP on DOS: 04/08/21 Technique: Multidetector spiral CT of the abdomen and pelvis was performed from lung bases to pubic symphysis. Imaging was performed without intravenous contrast. Coronal and sagittal multiplanar reformats were obtained from the axial data set by the technologist. Radiation Dose : 1. Abdomen/Pelvis: CTDIvol 17.4 mGy, DLP 1063.8 mGy*cm. Findings: Evaluation of vasculature and solid organs is limited due to lack of intravenous contrast use. Lung Bases: Lung bases are clear. Visualized portions of the heart and salvador cardium are unremarkable. Liver: The liver is normal in size. No focal lesions. Diffusely hypoattenuating liver parenchyma consistent with hepatic steatosis. Gallbladder and Biliary Tree: The gallbladder is unremarkable. No intrahepatic or extrahepatic biliary ductal dilatation. Spleen: Unremarkable Pancreas: The pancreas is grossly unremarkable. Adrenal Glands: Unremarkable Kidneys: Severe left and moderate right hydroureteronephrosis. No intrarenal calculi. GI tract: The stomach is grossly normal in appearance. No evidence of small bowel wall thickening or abnormal dilatation to suggest bowel obstruction. The colon is unremarkable. The appendix is visualized and is normal. Peritoneum/mesentery/retroperitoneum. No evidence of free intraperitoneal air. No ascites. No evidence of suspicious lymphadenopathy. Abdominal Wall: Unremarkable. Vasculature: The visualized abdominal aorta is normal in size and caliber. Evaluation of abdominal and pelvic vessels is limited due to lack of intravenous contrast. Urinary Bladder: Urinary bladder is distended with eccentric soft tissue thickening along the right posterolateral urinary bladder wall that measures 6.7 cm in AP dimension by 1.7 cm in transverse dimension. Pelvic Organs: Prostate is not enlarged. Musculoskeletal: No suspicious focal bony lesions, acute fractures or dislocation. Bilateral hip joint space narrowing. Multilevel lumbar spondylosis. IMPRESSION: 1. Distended urinary bladder with eccentric masslike thickening along the right posterolateral bladder wall measuring up to 1.7 cm in thickness. This is concerning for malignancy in the appropriate clinical setting. 2. Severe left and moderate right hydroureteronephrosis which may be due to obstruction at the level of the urinary bladder. No obstructing stones. 3. Hepatic steatosis. 4. No suspicious bone lesions. ENT: KELVIN BLANCACCT: [id number] UNIT: [id number] : 1960 LOC: OVERFLOW ROOM / BED: [address] [place] [address] / AGE / SEX: 64 / M ADM STATUS: ADM IN SERVICE 0743 ORDERING PHYSICIAN: BEN GLEZ DNP PROCEDURE(s): KIDUS - KIDNEY REASON: eval for bladder obstruction ORDER NUMBER(s): [id number], ACCESSION NUMBER(s): [id number] KIDNEY HISTORY: eval for bladder obstruction COMPARISON: 12/17/24 TECHNIQUE: Transverse and longitudinal grayscale and color doppler images were obtained of the kidneys and bladder. FINDINGS: Right kidney: Size: 9.2 cm Cortical thickness: Normal Echogenicity: Normal Stones: None Masses: None Hydronephrosis: yes Ureters: Not well visualized. Other: None Left kidney: Size: 9.9 cm Cortical thickness: Normal Echogenicity: Normal Stones: None Masses: None Hydronephrosis: yes Ureters: Not well visualized. Other: None Bladder: 7.5 x 2.2 x 5.6 cm echogenic structure at the base bladder could be a mass. Other: None. IMPRESSION: 7.5 x 2.2 x 5.6 cm echogenic structure at the base bladder could be a mass. Mild right and mild to moderate left hydronephrosis with ureteral jets seen. ATED BY: ELIAS WAYNE MD DICTATED DATE/TIME: 12/17/24 0908 PATIENT: KELVIN BLANCACCT: [id number] UNIT: [id number] : 1960 LOC: OVERFLOW ROOM / BED: [address] [place] [address] AGE / SEX: 64 / M ADM STATUS: ADM IN SERVICE 16 ORDERING PHYSICIAN: KAY FIGUEROA NP PROCEDURE(s): BLDR - BLADDER REASON: CONFIRM PARNELL PLACEMENT ORDER NUMBER(s): [id number], ACCESSION NUMBER(s): [id number] US BLADDER HISTORY: CONFIRM PARNELL PLACEMENT COMPARISON: US KIDNEY on DOS: 12/17/24, PELVIS AP on DOS: 04/08/21 TECHNIQUE: Transverse and longitudinal grayscale and color doppler images were obtained of the kidneys and bladder. FINDINGS: Bladder: Parnell seen in the bladder. Other: None. IMPRESSION: Parnell seen in the bladder. ATED BY: ELIAS WAYNE MD DICTATED DATE/TIME: 12/17/24 1438 SIGNED BY: ELIAS WAYNE MD SIGNED DATE/TIME: 12/17/24 143 CC: Assessment/Plan Problem List: (1) ETOH abuse (2) Acute UTI (urinary tract infection) (3) Hematuria (4) Acute renal injury (5) Hydronephrosis (6) Prostate cancer (7) Bladder neck contracture (8) Difficult Parnell catheter placement (9) Complication of Parnell catheter Admitting Diagnosis: Acute Painless Hematuria Plan Once medically stable the patient will need TURP and possibly TURBT inpatient vs outpatient depending on clinical course. Keep Parnell to gravity Irrigate with sterile water to maintain patency Monitor creatinine Monitor H/H Continue IV antibiotics Monitor for signs of alcohol withdrawal Bone scan Plan discussed with: Patient MELVIN ORO UI ENGINEER Dec 17, 2024 15:59 KAY FIGUEROA NP Dec 17, 2024 21:36
[2024-12-17] MEDS: CARISOPRODOL 350 MG TAB PO PRN (16:25)
[2024-12-17] MEDS: TAMSULOSIN HYDROCHLORIDE 0.4 MG CAP PO ONE (16:26)
[2024-12-17 19:30] VITALS: PULSE 100; RESP 14; O2SAT 98
[2024-12-17] MEDS: PHENAZOPYRIDINE HCL 100 MG TAB PO SCH (22:06)
--- NOTE | 2024-12-17 22:22 | DVHOP2 ---
Operative Report - 2 Report Details Date: 12/17/24 Preop Diagnosis: acute urinary retention Postop Diagnosis: bladder neck contracture and false passage Surgeon: Kay Figueroa Anesthesiologist: n/a Anesthesia: Local Consent: The patient was informed of the risks and benefits of the procedure. These include but are not limited to complications of anesthesia, postoperative infection, incomplete relief of symptoms, recurrence of symptoms, damage to blood vessels, nerves and tendons, deep venous thrombosis, pulmonary embolism and possible need for repeat surgery in the future. Complications: none Estimated Blood Loss: 100 cc Name of Procedure Performed cystoscopy with cote placement over guidewire with serial dilation Procedure Details Procedure Details: Initial attempt to place cote catheter unsuccessful. Bedside flexible cystoscopy was performed under sterile technique. false passage noted. bladder neck contracture visualized with pinpoint opening approx 5 mm in diameter. Hydr ophilic guidewire was passed into the bladder. Serial dialtion of the bladder neck contracture was performed up to 18F. 18f cote was passed over the guidewire and the bladder was emptied of approx 1 liter sanguinous urine. US at bedside confirmed cote placement. 1.5 liters of sterile water was irrigated manually with removal of many small clots. pt was premedicated 1 mg of IV dil audid for comfort. Pt tolerated the procedure well. cote was left to gravity drainage. vitals remained WNL throughout the entirety of the procedure. No immediate complications Condition Fair Disposition Still a Patient KAY FIGUEROA NP Dec 17, 2024 22:22
[2024-12-18] VITALS (9 sets, daily range): BP systolic 143–185; BP diastolic 87–127; PULSE 95–113; RESP 16–19; TEMP 97.2–98; O2SAT 96–98
[2024-12-18 05:08] LABS: Prostate Specific Antigen 197.0 ng/mL (0.0-4.0)
[2024-12-18 06:39] LABS: Hematocrit 25.1 % (41.0-53.0); Hemoglobin 8.5 g/dL (13.5-17.5); Mean Corpuscular Hemoglobin 29.8 pg (28.0-32.0); Mean Corpuscular Volume 88.2 fL (80.0-100.0)
[2024-12-18 06:53] LABS: Alanine Aminotransferase 19 U/L (7-40); Albumin 4.5 g/dL (3.2-4.8); Alkaline Phosphatase 113 U/L (46-116); Anion Gap 12 (5-15); BUN/Creatinine Ratio 14.9 (10.0-20.0); Bilirubin, Total 0.6 mg/dL (0.2-1.0); Calcium 9.9 mg/dL (8.7-10.4); Carbon Dioxide 22 mmol/L (20-31); Chloride 103 mmol/L (98-107); Potassium 4.3 mmol/L (3.5-5.1); Sodium 137 mmol/L (136-145); Total Protein 7.7 g/dL (5.7-8.2)
[2024-12-18 06:54] LABS: Blood Urea Nitrogen 24 mg/dL (9-23); Glucose 135 mg/dL (74-106)
[2024-12-18 08:28] LABS: Nucleated Red Blood Cells % 4.0 %; Total Cells Counted 100.0 (100)
[2024-12-18 08:29] LABS: Ovalocytes MODERATE
[2024-12-18] MEDS: cefTRIAXone 1GM/50ML D5W 50 ML IV SCH (09:31)
[2024-12-18] MEDS: OXYBUTYNIN CHL 5 MG TAB PO SCH (10:00)
[2024-12-18] MEDS: THIAMINE 100mg/ml INJ (200mg/2ml VIAL) IV SCH (10:19)
[2024-12-18] MEDS: FOLIC ACID 1 MG in D5W 5% 50 ML INJ SCH (11:18)
[2024-12-18] MEDS ORDERED: hydrALAZINE HCL 20 MG/ML VL IV PRN (12:30)
[2024-12-18] MEDS: hydrALAZINE HCL 20 MG/ML VL IV PRN (13:17)
--- NOTE | 2024-12-18 16:56 | DVHPN2 ---
Subjective I am assuming the care of the patient from today onwards who was under the care of the hospitalist team. Detailed sign out obtained. This is a follow up on 64-year-old male with a known history of prostate cancer, presented to the hospital with a urinary retention and gross hematuria status post cystoscopy for Wheelre catheter placement under guidewire guidance. Patient's hematuria is resolving. Changes from previous H/P or p: No Changes Eyes: No Pain, No Vision change, No Conjunctivae inflammation, No Eyelid inflammation, No Other, No Redness ENT: No Ear pain, No Ear discharge, No Nose pain, No Nose discharge, No Nose congestion, No Mouth pain, No Mouth swelling, No Throat pain, No Throat swelling, No Other Cardiovascular: No Chest Pain, No Palpitations, No Orthopnea, No Paroxysmal Noc. Dyspnea, No Edema, No Lt Headedness, No Other Respiratory: No Cough, No Dry, No Shortness of breath, No SOB with excertion, No Wheezing, No Hemoptysis, No Pleuritic Pain, No Sputum, No Other Gastrointestinal: No Nausea, No Vomiting, No Abdominal Pain, No Diarrhea, No Constipation, No Melena, No Hematochezia, No Other Genitourinary: Dysuria; No Frequency, No Incontinence; Hematuria; No Retention, No Other Musculoskeletal: No other, No neck pain, No shoulder pain, No arm pain, No back pain, No hand pain, No leg pain, No foot pain Skin: No Rash, No Lesions, No Jaundice, No Bruising, No Other Objective Vitals Vital Signs Date Time Temp Pulse Resp B/P (MAP) Pulse Ox O2 Delivery O2 Flow Rate FiO2 12/18/24 13:17 192/118 12/18/24 13:00 97.9 95 17 98 97.9 12/18/24 08:30 Room Air* 0 21 Intake/Output Intake and Output 12/18/24 07:00 Intake Total 900 ml Output Total 3175 ml Balance -2275 ml Intake Oral 0 ml IV Total 900 ml Output Urine Total 3175 ml Exam HEENT pupils are reactive Neck is supple CV is S1-S2 regular rate and rhythm Respiratory diminished breath sounds bases GI positive bowel sound Extremity no edema INTER COM SERVICER no motor deficit. Medications Current Medications Medications Dose Ordered Sig/Jamie Route Start Time Stop Time Status Last Admin Dose Admin Ceftriaxone Sodium 50 ml @ 100 mls/hr DAILY@09 IV 12/18/24 09:00 12/18/24 09:31 100 MLS/HR Sodium Chloride 1,000 ml @ 100 mls/hr Q10H IV 12/17/24 07:45 12/18/24 03:59 100 MLS/HR Morphine Sulfate 4 mg Q4HPRN PRN IV 12/17/24 10:15 12/18/24 04:00 4 MG Ondansetron HCl 4 mg Q4HPRN PRN IV 12/17/24 10:15 12/17/24 23:43 4 MG Thiamine HCl 100 mg DAILY IV 12/18/24 10:00 12/18/24 10:19 100 MG Folic Acid 1 mg/ Dextrose 50.2 ml @ 200.8 mls/ hr DAILY INJ 12/18/24 10:00 12/18/24 11:18 200.8 MLS/HR Carisoprodol 350 mg Q8HPRN PRN PO 12/17/24 16:00 12/17/24 16:25 350 MG Phenazopyridine HCl 100 mg BID PO 12/17/24 22:00 12/17/24 22:06 100 MG Oxybutynin Chloride 5 mg DAILY PO 12/18/24 10:00 Hydralazine HCl 10 mg Q4HR PRN IV 12/18/24 12:30 12/18/24 13:17 10 MG Laboratory Results Laboratory Tests 12/18/24 05:49 Chemistry Test 12/18/24 05:49 Albumin 4.5 g/dL (3.2-4.8) Calcium Level 9.9 mg/dL (8.7-10.4) Total Protein 7.7 g/dL (5.7-8.2) LFT Test 12/18/24 05:49 Alanine Aminotransferase (ALT) 19 U/L (7-40) Alkaline Phosphatase 113 U/L (46-116) Aspartate Amino Transferase (AST) 42 U/L (13-40) H Total Bilirubin 0.6 mg/dL (0.2-1.0) Urinalysis Test 12/17/24 03:57 Urine Color Dark-red (Yellow) Urine Clarity Ex.turbid (Clear) Urine pH 6.0 (5.0-9.0) Urine Specific [place] 1.017 (1.001-1.035) Urine Protein 1+ (Negative) H Urine Ketones Negative (Negative) Urine Blood 3+ /uL (Negative) H Urine Nitrite Negative (Negative) Urine Bilirubin 1+ (Negative) Urine Urobilinogen 2 mg/dL (Negative) H Urine Leukocyte Esterase 1+ /uL (Negative) Urine RBC None seen /hpf (0 - 3) Urine Microscopic WBC /HPF (0-3) Urine Squamous Epithelial Cells None seen /hpf (<5) Urine Bacteria None seen /hpf (None Seen) Urine Glucose Normal mg/dL (Normal) Microbiology Microbiology Date/Time Source Procedure Growth Status 12/17/24 16:45 Voided Urine Urine Culture - Preliminary Resulted Assessment/Plan Assessment/Plan 64-year-old male with a known history of prostate cancer, CKD stage IIIB, hypertension who initially presented to the hospital with a abdominal pain urinary retention and gross hematuria found to have 1. Gross hematuria status post Wheeler catheter placement with cystoscopy 2. 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 CKD stage IIIB 4. Hypertension 5. History of prostate cancer 6. Hydroureter nephrosis 7.: Chronic alcoholism -follow up Urology recommendations continue bladder irrigation- Discharge plan once Urology clears Plan discussed with: Patient My Orders Orders - PRAMOD OLGUIN MD Procedure Category Date Status Time Hydralazine Injection PHA 12/18/24 In Process (Apresoline Inject 12:30 Date of Service: Dec 18, 2024 Billing Provider: PRAMOD OLGUIN MD Common Visit Codes: [id number] INP/OBS CARE(MOD) PRAMOD OLGUIN MD Dec 18, 2024 16:56
--- NOTE | 2024-12-18 17:48 | DVH ---
NUCLEAR MEDICINE WHOLE BODY BONE SCAN REASON FOR EXAM: r/o metastatic disease. Bilateral hydronephrosis. Hematuria. Prostate cancer. COMPARISON: CT abdomen/ pelvis 12/17/2024. CT head 12/17/2024. CT cervical spine 11/17/2021. RADIOPHARMACEUTICAL: Dose: 27 mCi [id number] AUTHORIZED USER: Dr. Cory Adrian M.D. TECHNIQUE: Single-phase nuclear medicine bone scan was performed. Standard delayed anterior and pos terior whole body images were acquired. FINDINGS: There is expected radiotracer activity in the genitourinary system and within the bone lisette ow spaces. There are degenerative changes in both feet. There are degenerative changes at the should ers. There is a focus of increased radiotracer activity at the left lateral aspect of the mandible. N o other suspicious focus of radiotracer activity is identified. IMPRESSION: Abnormal focus of increased radiotracer activity at the left lateral aspect of the mandible. This ca n be seen with dental disease. Recommend CT of the facial bones.
--- NOTE | 2024-12-18 18:02 | DVHPN2 ---
Progress Note - Dictate Date Seen: Dec 18, 2024 Has the PT tested + for MRSA If YES, has PT been informed?: Yes Medical Necessity Reason Pt with a Central, PICC or Fol: Yes The following are medically ne: Cote Catheter Reason for cote catheter: Bladder Retention/Obstruc Medical Necessity Reason Patient is in acute urinary retention and is unable to void spontaneously. Subjective Patient is s/p cote placement for acute urinary retention and reports relief of suprapubic pressure and improved comfort since catheter placement. Noncompliant with treatment for prostate cancer vital signs Vital Sign Date Time Temp Pulse Resp B/P (MAP) Pulse Ox O2 Delivery O2 Flow Rate FiO2 12/18/24 13:17 192/118 12/18/24 13:00 97.9 95 17 98 97.9 12/18/24 08:30 Room Air* 0 21 Total Intake and Output 12/17/24 12/17/24 12/18/24 15:00 23:00 07:00 Intake Total 500 ml 400 ml 0 ml Output Total 2500 ml 675 ml Balance -2000 ml 400 ml -675 ml medications Current Medications Medications Dose Ordered Sig/Jamie Route Start Time Stop Time Status Last Admin Dose Admin Ceftriaxone Sodium 50 ml @ 100 mls/hr DAILY@09 IV 12/18/24 09:00 12/18/24 09:31 100 MLS/HR Sodium Chloride 1,000 ml @ 100 mls/hr Q10H IV 12/17/24 07:45 12/18/24 03:59 100 MLS/HR Morphine Sulfate 4 mg Q4HPRN PRN IV 12/17/24 10:15 12/18/24 04:00 4 MG Ondansetron HCl 4 mg Q4HPRN PRN IV 12/17/24 10:15 12/17/24 23:43 4 MG Thiamine HCl 100 mg DAILY IV 12/18/24 10:00 12/18/24 10:19 100 MG Folic Acid 1 mg/ Dextrose 50.2 ml @ 200.8 mls/ hr DAILY INJ 12/18/24 10:00 12/18/24 11:18 200.8 MLS/HR Carisoprodol 350 mg Q8HPRN PRN PO 12/17/24 16:00 12/17/24 16:25 350 MG Phenazopyridine HCl 100 mg BID PO 12/17/24 22:00 12/17/24 22:06 100 MG Oxybutynin Chloride 5 mg DAILY PO 12/18/24 10:00 Hydralazine HCl 10 mg Q4HR PRN IV 12/18/24 12:30 12/18/24 13:17 10 MG objective Indwelling Cote catheter in place, draining clear yellow urine. No gross hematuria. Sediment noted in drainage bag. No leakage around catheter. PATIENT: KELVIN BLANCACCT: [id number] UNIT: [id number] : 1960 LOC: [facility] ROOM / BED: [address] [facility] AGE / SEX: 64 / M ADM STATUS: ADM IN SERVICE 35 ORDERING PHYSICIAN: KAY FIGUEROA NP PROCEDURE(s): BONNM - BONE WHOLE BODY REASON: r/o metastatic disease ORDER NUMBER(s): [id number], ACCESSION NUMBER(s): [id number] NUCLEAR MEDICINE WHOLE BODY BONE SCAN REASON FOR EXAM: r/o metastatic disease. Bilateral hydronephrosis. Hematuria. Prostate cancer. COMPARISON: CT abdomen/ pelvis 12/17/2024. CT head 12/17/2024. CT cervical spine 11/17/2021. RADIOPHARMACEUTICAL: Dose: 27 mCi [id number] AUTHORIZED USER: Dr. Cory Petersen M.D. TECHNIQUE: Single-phase nuclear medicine bone scan was performed. Standard delayed anterior and posterior whole body images were acquired. FINDINGS: There is expected radiotracer activity in the genitourinary system and within the bone marrow spaces. There are degenerative changes in both feet. There are degenerative changes at the shoulders. There is a focus of increased radiotracer activity at the left lateral aspect of the mandible. No other suspicious focus of radiotracer activity is identified. IMPRESSION: Abnormal focus of increased radiotracer activity at the left lateral aspect of the mandible. This can be seen with dental disease. Recommend CT of the facial bones. ATED BY: CORY PETERSEN MD DICTATED DATE/TIME: 12/18/241745 SIGNED BY: CORY PETERSEN MD SIGNED DATE/TIME: 12/18/241745 CC: laboratory and microbiology Laboratory Tests 12/18/24 05:49 Test 12/18/24 05:49 Range/Units Serum Glucose 135 H 74-106 mg/dL Bone scan done PSA 194 Assessment/Plan Monitor H/H for sgns of ongoing blood loss. If H/H drops and requires transfusion or becomes unstable d/t acute blood loss consider inpatient cystoscopy. Continue to monitor Cr for renal function Monitor for signs of infection Urine culture is negative for growth PSA noted elevated 194 Patient will need to start treatment with ADT Cote to gravity Outpatient management tBa Problems(with codes): (1) Prostate CA (2) Rising PSA following treatment for malignant neoplasm of prostate (3) Urinary retention due to benign prostatic hyperplasia Plan discussed with: Patient MELVIN ORO NP Dec 18, 2024 18:02 BARBARA PATTERSON MD Dec 21, 2024 14:19
[2024-12-19] VITALS (7 sets, daily range): BP systolic 122–168; BP diastolic 82–104; PULSE 94–122; RESP 16–18; TEMP 97.1–98.6; O2SAT 95–99
--- NOTE | 2024-12-19 18:05 | DVHPN2 ---
Subjective This is a follow up on 64-year-old male with a known history of prostate cancer, presented to the hospital with a urinary retention and gross hematuria status post cystoscopy for Wheeler catheter placement under guidewire guidance. Patient's hematuria is resolving. Patient is currently scheduled for suprapubic catheter by IR on Saturday. Changes from previous H/P or p: No Changes Eyes: No Pain, No Vision change, No Conjunctivae inflammation, No Eyelid inflammation, No Other, No Redness ENT: No Ear pain, No Ear discharge, No Nose pain, No Nose discharge, No Nose congestion, No Mouth pain, No Mouth swelling, No Throat pain, No Throat swelling, No Other Cardiovascular: No Chest Pain, No Palpitations, No Orthopnea, No Paroxysmal Noc. Dyspnea, No Edema, No Lt Headedness, No Other Respiratory: No Cough, No Dry, No Shortness of breath, No SOB with excertion, No Wheezing, No Hemoptysis, No Pleuritic Pain, No Sputum, No Other Gastrointestinal: No Nausea, No Vomiting, No Abdominal Pain, No Diarrhea, No Constipation, No Melena, No Hematochezia, No Other Genitourinary: Dysuria; No Frequency, No Incontinence; Hematuria; No Retention, No Other Musculoskeletal: No other, No neck pain, No shoulder pain, No arm pain, No back pain, No hand pain, No leg pain, No foot pain Skin: No Rash, No Lesions, No Jaundice, No Bruising, No Other Objective Vitals Vital Signs Date Time Temp Pulse Resp B/P (MAP) Pulse Ox O2 Delivery O2 Flow Rate FiO2 12/19/24 17:00 98.4 106 18 140/90 (107) 96 98.4 12/19/24 07:30 Room Air* 0 21 Intake/Output Intake and Output 12/19/24 07:00 Intake Total 850 ml Output Total 1550 ml Balance -700 ml Intake Oral 800 ml IV Total 50 ml Output Urine Total 1550 ml Exam HEENT pupils are reactive Neck is supple CV is S1-S2 regular rate and rhythm Respiratory diminished breath sounds bases GI positive bowel sound 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 Medications Current Medications Medications Dose Ordered Sig/Jamie Route Start Time Stop Time Status Last Admin Dose Admin Ceftriaxone Sodium 50 ml @ 100 mls/hr DAILY@09 IV 12/18/24 09:00 12/19/24 09:20 100 MLS/HR Sodium Chloride 1,000 ml @ 100 mls/hr Q10H IV 12/17/24 07:45 12/18/24 03:59 100 MLS/HR Morphine Sulfate 4 mg Q4HPRN PRN IV 12/17/24 10:15 12/19/24 12:16 4 MG Ondansetron HCl 4 mg Q4HPRN PRN IV 12/17/24 10:15 12/17/24 23:43 4 MG Thiamine HCl 100 mg DAILY IV 12/18/24 10:00 12/19/24 10:02 100 MG Folic Acid 1 mg/ Dextrose 50.2 ml @ 200.8 mls/ hr DAILY INJ 12/18/24 10:00 12/19/24 10:43 200.8 MLS/HR Carisoprodol 350 mg Q8HPRN PRN PO 12/17/24 16:00 12/19/24 13:42 350 MG Phenazopyridine HCl 100 mg BID PO 12/17/24 22:00 12/19/24 09:20 100 MG Oxybutynin Chloride 5 mg DAILY PO 12/18/24 10:00 12/19/24 09:20 5 MG Hydralazine HCl 10 mg Q4HR PRN IV 12/18/24 12:30 12/19/24 13:34 10 MG Laboratory Results Laboratory Tests 12/18/24 05:49 Urinalysis Test 12/17/24 03:57 Urine Color Dark-red (Yellow) Urine Clarity Ex.turbid (Clear) Urine pH 6.0 (5.0-9.0) Urine Specific [place] 1.017 (1.001-1.035) Urine Protein 1+ (Negative) H Urine Ketones Negative (Negative) Urine Blood 3+ /uL (Negative) H Urine Nitrite Negative (Negative) Urine Bilirubin 1+ (Negative) Urine Urobilinogen 2 mg/dL (Negative) H Urine Leukocyte Esterase 1+ /uL (Negative) Urine RBC None seen /hpf (0 - 3) Urine Microscopic WBC /HPF (0-3) Urine Squamous Epithelial Cells None seen /hpf (<5) Urine Bacteria None seen /hpf (None Seen) Urine Glucose Normal mg/dL (Normal) Microbiology Microbiology Date/Time Source Procedure Growth Status 12/17/24 16:45 Voided Urine Urine Culture - Final Complete Assessment/Plan Assessment/Plan 64-year-old male with a known history of prostate cancer, CKD stage IIIB, hypertension who initially presented to the hospital with a abdominal pain urinary retention and gross hematuria found to have 1. Gross hematuria status post Wheeler catheter placement with cystoscopy 2. 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 CKD stage IIIB 4. Hypertension 5. History of prostate cancer 6. Hydroureter nephrosis 7.: Chronic alcoholism -follow up Urology recommendations continue bladder irrigation- , IR consult for suprapubic catheter placement on Saturday. Plan discussed with: Patient Date of Service: Dec 19, 2024 Billing Provider: PRAMOD OLGUIN MD Common Visit Codes: [id number] INP/OBS CARE(MOD) PRAMOD OLGUIN MD Dec 19, 2024 18:05
[2024-12-20 01:00] VITALS: BP_SYST 144; BP_SYST 149; BP_DIAS 77; BP_DIAS 87; PULSE 81; PULSE 99; RESP 17; TEMP 97.5; TEMP 98.9; O2SAT 96; O2SAT 98
[2024-12-20 05:00] VITALS: BP 152/94; PULSE 102; RESP 16; TEMP 98.8; O2SAT 97
[2024-12-20 09:00] VITALS: BP 144/89; PULSE 119; RESP 20; TEMP 97.7; O2SAT 98
[2024-12-20 13:00] VITALS: BP 164/106; PULSE 115; RESP 20; TEMP 97.4; O2SAT 97
--- NOTE | 2024-12-20 16:23 | DVHPN2 ---
Subjective This is a follow up on 64-year-old male with a known history of prostate cancer, presented to the hospital with a urinary retention and gross hematuria status post cystoscopy for Wheeler catheter placement under guidewire guidance. Patient's hematuria is resolving. Patient is currently scheduled for suprapubic catheter by IR on Saturday. Changes from previous H/P or p: No Changes Eyes: No Pain, No Vision change, No Conjunctivae inflammation, No Eyelid inflammation, No Other, No Redness ENT: No Ear pain, No Ear discharge, No Nose pain, No Nose discharge, No Nose congestion, No Mouth pain, No Mouth swelling, No Throat pain, No Throat swelling, No Other Cardiovascular: No Chest Pain, No Palpitations, No Orthopnea, No Paroxysmal Noc. Dyspnea, No Edema, No Lt Headedness, No Other Respiratory: No Cough, No Dry, No Shortness of breath, No SOB with excertion, No Wheezing, No Hemoptysis, No Pleuritic Pain, No Sputum, No Other Gastrointestinal: No Nausea, No Vomiting, No Abdominal Pain, No Diarrhea, No Constipation, No Melena, No Hematochezia, No Other Genitourinary: Dysuria; No Frequency, No Incontinence; Hematuria; No Retention, No Other Musculoskeletal: No other, No neck pain, No shoulder pain, No arm pain, No back pain, No hand pain, No leg pain, No foot pain Skin: No Rash, No Lesions, No Jaundice, No Bruising, No Other Objective Vitals Vital Signs Date Time Temp Pulse Resp B/P (MAP) Pulse Ox O2 Delivery O2 Flow Rate FiO2 12/20/24 16:18 164/106 12/20/24 09:35 119 18 12/20/24 09:00 97.7 98 97.7 12/20/24 08:00 Room Air* 0 21 Intake/Output Intake and Output 12/20/24 07:00 Intake Total 1050 ml Output Total 3000 ml Balance -1950 ml Intake Oral 1000 ml IV Total 50 ml Output Urine Total 3000 ml Exam HEENT pupils are reactive Neck is supple CV is S1-S2 regular rate and rhythm Respiratory diminished breath sounds bases GI positive bowel sound Extremity no 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 Medications Current Medications Medications Dose Ordered Sig/Jamie Route Start Time Stop Time Status Last Admin Dose Admin Ceftriaxone Sodium 50 ml @ 100 mls/hr DAILY@09 IV 12/18/24 09:00 12/20/24 09:35 100 MLS/HR Sodium Chloride 1,000 ml @ 100 mls/hr Q10H IV 12/17/24 07:45 12/20/24 09:35 100 MLS/HR Morphine Sulfate 4 mg Q4HPRN PRN IV 12/17/24 10:15 12/20/24 09:05 4 MG Ondansetron HCl 4 mg Q4HPRN PRN IV 12/17/24 10:15 12/17/24 23:43 4 MG Thiamine HCl 100 mg DAILY IV 12/18/24 10:00 12/20/24 09:06 100 MG Folic Acid 1 mg/ Dextrose 50.2 ml @ 200.8 mls/ hr DAILY INJ 12/18/24 10:00 12/20/24 10:00 200.8 MLS/HR Carisoprodol 350 mg Q8HPRN PRN PO 12/17/24 16:00 12/20/24 16:08 350 MG Phenazopyridine HCl 100 mg BID PO 12/17/24 22:00 12/20/24 09:06 100 MG Oxybutynin Chloride 5 mg DAILY PO 12/18/24 10:00 12/20/24 09:06 5 MG Hydralazine HCl 10 mg Q4HR PRN IV 12/18/24 12:30 12/20/24 16:18 10 MG Laboratory Results Laboratory Tests 12/18/24 05:49 Urinalysis Test 12/17/24 03:57 Urine Color Dark-red (Yellow) Urine Clarity Ex.turbid (Clear) Urine pH 6.0 (5.0-9.0) Urine Specific [place] 1.017 (1.001-1.035) Urine Protein 1+ (Negative) H Urine Ketones Negative (Negative) Urine Blood 3+ /uL (Negative) H Urine Nitrite Negative (Negative) Urine Bilirubin 1+ (Negative) Urine Urobilinogen 2 mg/dL (Negative) H Urine Leukocyte Esterase 1+ /uL (Negative) Urine RBC None seen /hpf (0 - 3) Urine Microscopic WBC /HPF (0-3) Urine Squamous Epithelial Cells None seen /hpf (<5) Urine Bacteria None seen /hpf (None Seen) Urine Glucose Normal mg/dL (Normal) Microbiology Microbiology Date/Time Source Procedure Growth Status 12/17/24 16:45 Voided Urine Urine Culture - Final Complete Assessment/Plan Assessment/Plan 64-year-old male with a known history of prostate cancer, CKD stage IIIB, hypertension who initially presented to the hospital with a abdominal pain urinary retention and gross hematuria found to have 1. Gross hematuria status post Wheeler catheter placement with cystoscopy 2. 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 CKD stage IIIB 4. Hypertension 5. History of prostate cancer 6. Hydroureter nephrosis 7.: Chronic alcoholism -follow up Urology recommendations , IR consult for suprapubic catheter placement on Saturday. Plan discussed with: Patient My Orders Orders - PRAMOD OLGUIN MD Procedure Category Date Status Time Dietary NOTICE 12/20/24 Transmitted Recommendations 12:53 PTPTT LAB 12/21/24 Verified 04:00 Date of Service: Dec 20, 2024 Billing Provider: PRAMOD OLGUIN MD Common Visit Codes: [id number] INP/OBS CARE(MOD) PRAMOD OLGUIN MD Dec 20, 2024 16:23
[2024-12-20 17:00] VITALS: BP 158/110; PULSE 103; RESP 20; TEMP 97; O2SAT 97
[2024-12-20 21:00] VITALS: BP 145/92; PULSE 100; RESP 19; TEMP 98.1; O2SAT 97
[2024-12-21 01:00] VITALS: BP 139/88; PULSE 99; RESP 19; TEMP 97.9; O2SAT 97
[2024-12-21 05:00] VITALS: BP 146/99; PULSE 98; RESP 19; TEMP 98; O2SAT 99
[2024-12-21 09:00] VITALS: BP 160/110; PULSE 107; RESP 20; TEMP 98.7; O2SAT 94
[2024-12-21 10:48] LABS: INR 0.97 (0.9-1.15); Partial Thromboplastin Time 21.7 SEC (24.5-34.5); Prothrombin Time 10.3 sec (9.3-11.8)
[2024-12-21 13:00] VITALS: BP 158/113; PULSE 88; RESP 18; TEMP 98.3; O2SAT 97
[2024-12-21 14:14] LABS: Chloride 107 mmol/L (98-107); Potassium 3.7 mmol/L (3.5-5.1); Sodium 141 mmol/L (136-145)
[2024-12-21 14:15] LABS: Anion Gap 11 (5-15); Calcium 9.1 mg/dL (8.7-10.4); Carbon Dioxide 23 mmol/L (20-31)
[2024-12-21 14:20] LABS: BUN/Creatinine Ratio 14.8 (10.0-20.0); Blood Urea Nitrogen 19 mg/dL (9-23); Glucose 104 mg/dL (74-106)
[2024-12-21 14:30] LABS: Hematocrit 23.5 % (41.0-53.0); Hemoglobin 7.8 g/dL (13.5-17.5); Mean Corpuscular Hemoglobin 29.7 pg (28.0-32.0); Mean Corpuscular Volume 89.9 fL (80.0-100.0); Nucleated Red Blood Cells % 9.7 %
--- NOTE | 2024-12-21 15:17 | DVHPN2 ---
Assessment/Plan Assessment/Plan progress note 64 M with prostate cancer (2022) HTN, CKD 3b admitted for gross hematuria. patient is currently on CBI seen today. clear urine in cote. s/p0 cysto and cote placement. discussed with uro, plan for OP follow up. if h/h stable, canb be discharged tomorow. noted PSA still high, will need onc eval outpatient physical exam aox4 in pain PERLLA no JVD MMM clear breath sounds s1 s2 rrr abdomen distended gross hematuria seen no LE edema labs ekg imaging reviewed assessment and plan gross hematuria, likely related to prostate cancer CKD3b HTN interactable pain anemia acute loss on chronic dz alcohol use bladder mass vs clot hydroureteronephrosis prostate cancer hx, PSA still elevated significantly CBI trend H/H uro consult CIWA protocol pain management thiamine and folate onc as outpatient diet renal dvt ppx hold full code Plan discussed with: Patient My Orders Orders - JORGE LOGAN MD Procedure Category Date Status Time Basic Metabolic Panel LAB 12/22/24 Verified 04:00 Complete Blood Count LAB 12/22/24 Verified 04:00 Date of Service: Dec 21, 2024 Billing Provider: JORGE LOGAN MD Common Visit Codes: [id number] INP/OBS CARE(HIGH) JORGE LOGAN MD Dec 21, 2024 15:17
[2024-12-21 16:33] VITALS: BP 139/84; PULSE 117; RESP 20; TEMP 98.6; O2SAT 94
[2024-12-21 20:59] VITALS: BP 154/95; PULSE 110; RESP 19; TEMP 98.1; O2SAT 96
[2024-12-22] VITALS (10 sets, daily range): BP systolic 133–173; BP diastolic 70–107; PULSE 96–113; RESP 17–20; TEMP 98.1–98.8; O2SAT 96–99
[2024-12-22 06:47] LABS: Anion Gap 10 (5-15); Carbon Dioxide 22 mmol/L (20-31); Chloride 106 mmol/L (98-107); Potassium 4.0 mmol/L (3.5-5.1); Sodium 138 mmol/L (136-145)
[2024-12-22 06:48] LABS: Calcium 9.1 mg/dL (8.7-10.4)
[2024-12-22 06:52] LABS: Glucose 95 mg/dL (74-106)
[2024-12-22 06:53] LABS: BUN/Creatinine Ratio 14.8 (10.0-20.0); Blood Urea Nitrogen 19 mg/dL (9-23)
[2024-12-22 07:00] LABS: Hematocrit 20.2 % (41.0-53.0); Mean Corpuscular Hemoglobin 29.4 pg (28.0-32.0); Mean Corpuscular Volume 90.1 fL (80.0-100.0)
[2024-12-22 07:07] LABS: Hemoglobin 6.6 g/dL (13.5-17.5)
[2024-12-22 09:08] LABS: Nucleated Red Blood Cells % 2.0 %; Total Cells Counted 100.0 (100)
--- NOTE | 2024-12-22 13:35 | DVHPN2 ---
Progress Note - Dictate Date Seen: Dec 22, 2024 Has the PT tested + for MRSA If YES, has PT been informed?: Yes Medical Necessity Reason Pt with a Central, PICC or Fol: Yes The following are medically ne: Cote Catheter Reason for cote catheter: Bladder Retention/Obstruc Subjective feeling well vital signs Vital Sign Date Time Temp Pulse Resp B/P (MAP) Pulse Ox O2 Delivery O2 Flow Rate FiO2 12/22/24 12:32 98.4 96 20 173/98 (123) 97 98.4 12/22/24 08:04 Room Air* 0 21 Total Intake and Output 12/21/24 12/21/24 12/22/24 14:59 22:59 06:59 Intake Total 100.2 ml 200 ml 800 ml Output Total 1450 ml 1100 ml Balance 100.2 ml -1250 ml -300 ml medications Current Medications Medications Dose Ordered Sig/Jamie Route Start Time Stop Time Status Last Admin Dose Admin Morphine Sulfate 4 mg Q4HPRN PRN IV 12/17/24 10:15 12/22/24 08:30 4 MG Thiamine HCl 100 mg DAILY IV 12/18/24 10:00 12/22/24 09:58 100 MG Folic Acid 1 mg/ Dextrose 50.2 ml @ 200.8 mls/ hr DAILY INJ 12/18/24 10:00 12/22/24 09:57 200.8 MLS/HR Carisoprodol 350 mg Q8HPRN PRN PO 12/17/24 16:00 12/22/24 10:36 350 MG Phenazopyridine HCl 100 mg BID PO 12/17/24 22:00 12/22/24 09:59 100 MG Oxybutynin Chloride 5 mg DAILY PO 12/18/24 10:00 12/22/24 09:59 5 MG Nifedipine 30 mg DAILY PO 12/22/24 11:30 12/22/24 11:46 30 MG objective resting. urine clear in cote laboratory and microbiology Laboratory Tests 12/22/24 05:16 Test 12/22/24 05:16 Range/Units Serum Glucose 95 74-106 mg/dL Assessment/Plan outpt TURBNC/TURP TBA - keep cote to gravity. Must be exchanged over guidewire by urology. 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
--- NOTE | 2024-12-22 15:15 | DVHPN2 ---
Assessment/Plan Assessment/Plan progress note 64 M with prostate cancer (2022) HTN, CKD 3b admitted for gross hematuria. patient is currently on CBI seen today. urine clean however hb dropped still. will transfuse 1 unit and repeat. cleared by uro to dc with cote if hb stable. plan for OP procedure. physical exam aox4 in pain PERLLA no JVD MMM clear breath sounds s1 s2 rrr abdomen distended gross hematuria seen no LE edema labs ekg imaging reviewed assessment and plan gross hematuria, likely related to prostate cancer CKD3b HTN interactable pain anemia acute loss on chronic dz alcohol use bladder mass vs clot hydroureteronephrosis prostate cancer hx, PSA still elevated significantly CBI trend H/H transfuse 1 unit uro consult CIWA protocol pain management thiamine and folate onc as outpatient diet renal dvt ppx hold full code Plan discussed with: Patient My Orders Orders - JORGE LOGAN MD Procedure Category Date Status Time Cardiac DIET 12/21/24 Transmitted Diet-2gna,Lofat,Lochol Dinner Complete Blood Count LAB 12/22/24 Logged 16:00 Complete Blood Count LAB 12/23/24 Verified 04:00 Nifedipine Er PHA 12/22/24 In Process (Procardia Xl 11:30 Date of Service: Dec 22, 2024 Billing Provider: JORGE LOGAN MD Common Visit Codes: [id number] INP/OBS CARE(HIGH) JORGE LOGAN MD Dec 22, 2024 15:15
[2024-12-22 21:17] LABS: Hematocrit 28.0 % (41.0-53.0); Hemoglobin 9.4 g/dL (13.5-17.5); Mean Corpuscular Hemoglobin 29.5 pg (28.0-32.0); Mean Corpuscular Volume 87.5 fL (80.0-100.0)
[2024-12-22 21:53] LABS: Total Cells Counted 100.0 (100)
[2024-12-22 21:54] LABS: Nucleated Red Blood Cells % 3.0 %
[2024-12-23 01:00] VITALS: BP 154/87; PULSE 110; RESP 19; TEMP 98.4; O2SAT 98
[2024-12-23 05:00] VITALS: BP 158/100; PULSE 114; RESP 19; TEMP 97.5; O2SAT 97
[2024-12-23 08:31] LABS: Hematocrit 27.3 % (41.0-53.0); Hemoglobin 9.2 g/dL (13.5-17.5); Mean Corpuscular Hemoglobin 29.5 pg (28.0-32.0); Mean Corpuscular Volume 87.9 fL (80.0-100.0)
[2024-12-23 08:32] LABS: Nucleated Red Blood Cells % 6.4 %
[2024-12-23 09:00] VITALS: BP 135/72; PULSE 55; RESP 17; TEMP 98.6; O2SAT 96
[2024-12-23] MEDS ORDERED: NIFE1TAB31 PO (09:30)
[2024-12-23] MEDS ORDERED: TAMS-35 PO (09:30)
[2024-12-23] MEDS ORDERED: OXYB5TAB14 PO (09:30)
--- NOTE | 2024-12-23 09:32 | DVHDS2 ---
Discharge Summary Date of Admission Dec 17, 2024 at 07:43 Date of Discharge: Dec 23, 2024 Labs/Diagnostic Data: Laboratory Results Test 12/23/24 07:28 12/22/24 21:00 12/22/24 05:16 12/21/24 10:04 White Blood Count 7.4 10^3/uL (4.4-10.8) Red Blood Count 3.10 10^6/uL (4.5-5.90) Hemoglobin 9.2 g/dL (13.5-17.5) Hematocrit 27.3 % (41.0-53.0) Mean Corpuscular Volume 87.9 fL (80.0-100.0) Mean Corpuscular Hemoglobin 29.5 pg (28.0-32.0) Mean Corpuscular Hemoglobin Concent 33.6 g/dL (32.0-36.0) Red Cell Distribution Width 18.9 % (11.8-14.3) Platelet Count 244 10^3/uL (140-450) Mean Platelet Volume 9.7 fL (6.9-10.8) Neutrophils (%) (Auto) 60.2 % (37.0-80.0) Lymphocytes (%) (Auto) 32.5 % (10.0-50.0) Monocytes (%) (Auto) 5.9 % (0.0-12.0) Eosinophils (%) (Auto) 0.3 % (0.0-7.0) Basophils (%) (Auto) 1.1 % (0.0-2.0) Neutrophils # (Auto) 4.5 10 ^3/uL (1.6-8.6) Lymphocytes # (Auto) 2.4 10 ^3/uL (0.4-5.4) Monocytes # (Auto) 0.4 10 ^3/uL (0-1.3) Eosinophils # (Auto) 0 10 ^3/uL (0-0.8) Basophils # (Auto) 0.1 10 ^3/uL (0-0.2) Nucleated Red Blood Cells 6.4 % Differential Total Cells Counted 100.0 (100) Neutrophils % (Manual) 65 (37.0-80.0) Band Neutrophils % (Manual) 0 Lymphocytes % (Manual) 27 (10.0-50.0) Monocytes % (Manual) 7 (0-12) Eosinophils % (Manual) 1 (0-7) Basophils % (Manual) 0 (0.0-2.0) Metamyelocytes % (manual) 0 Myelocytes % (Manual) 0 Promyelocytes % (Manual) 0 Blast Cells % (Manual) 0 Reactive Lymphocytes 0 Platelet Estimate Adequate Sodium Level 138 mmol/L (136-145) Potassium Level 4.0 mmol/L (3.5-5.1) Chloride Level 106 mmol/L (98-107) Carbon Dioxide Level 22 mmol/L (20-31) Anion Gap 10 (5-15) Blood Urea Nitrogen 19 mg/dL (9-23) Creatinine 1.28 mg/dL (0.700-1.30) Glomerular Filtration Rate Calc 63 mL/min (>90) BUN/Creatinine Ratio 14.8 (10.0-20.0) Serum Glucose 95 mg/dL (74-106) Calcium Level 9.1 mg/dL (8.7-10.4) Target Cells Few Prothrombin Time 10.3 sec (9.3-11.8) Prothrombin Time INR 0.97 (0.9-1.15) Activated Partial Thromboplast Time 21.7 SEC (24.5-34.5) Test 12/18/24 05:49 12/17/24 12:44 12/17/24 08:14 12/17/24 03:57 Ovalocytes Moderate Schistocytes Moderate Total Bilirubin 0.6 mg/dL (0.2-1.0) Aspartate Amino Transferase (AST) 42 U/L (13-40) Alanine Aminotransferase (ALT) 19 U/L (7-40) Alkaline Phosphatase 113 U/L (46-116) Total Protein 7.7 g/dL (5.7-8.2) Albumin 4.5 g/dL (3.2-4.8) Anisocytosis (manual) Slight Carcinoembryonic Antigen 2.38 ng/mL (<=5.0) Free Prostate Specific Antigen 15.10 ng/mL (N/A) Percent Free Prostate Specific Ag 7.7 % (.) Prostate Specific Antigen Total 197.0 ng/mL (0.0-4.0) Plasma/Serum Blood Alcohol 224.0 mg/dL (<10) Urine Color Dark-red (Yellow) Urine Clarity Ex.turbid (Clear) Urine pH 6.0 (5.0-9.0) Urine Specific [place] 1.017 (1.001-1.035) Urine Protein 1+ (Negative) Urine Ketones Negative (Negative) Urine Blood 3+ /uL (Negative) Urine Nitrite Negative (Negative) Urine Bilirubin 1+ (Negative) Urine Urobilinogen 2 mg/dL (Negative) Urine Leukocyte Esterase 1+ /uL (Negative) Urine RBC None seen /hpf (0 - 3) Urine Microscopic WBC /HPF (0-3) Urine Squamous Epithelial Cells None seen /hpf (<5) Urine Bacteria None seen /hpf (None Seen) Urine Glucose Normal mg/dL (Normal) Other Laboratory Tests 12/23/24 07:28 12/22/24 05:16 Brief Hx & Hospital Course: 64 M with prostate cancer (2022) HTN, CKD 3b admitted for gross hematuria. patient started on CBI, improving. later found PSA still high and Hb dropped. urine cleared already, given 1 PRBC. cote needs to be exchanged over the wire by urology. follow up in clinic, mt clinic follow up. started on nifedipine for Bp control. patient also has alcohol use, no withdrawal noticed, given thiamine and folate. Condition at Discharge: Fair Final Diagnosis/Problems List bladder neck contracture and false passage gross hematuria, likely related to prostate cancer CKD3b HTN interactable pain anemia acute loss on chronic dz alcohol use bladder mass vs clot hydroureteronephrosis prostate cancer hx, PSA still elevated significantly Discharge Disposition: Home Discharge Instruct/Medications Diet: Cardiac 2g Na,low cholest Activity: No Restrictions, As Tolerated Follow Up/Referral: urology [facility] clinic 2 weeks Scheduled Amoxicillin & Pot Clavulanate (Augmentin Tablet), 875 MG PO BID Azithromycin (Zithromax Tablet), 250 MG PO DAILY Nifedipine (Nifedipine Er), 30 MG PO DAILY Oxybutynin Chloride (Oxybutynin Chloride), 5 MG PO DAILY Sulfamethoxazole W/Trimethopri (Bactrim Ds Tablet), 1 TAB PO BID Tamsulosin Hcl (Flomax), 1 CAP PO DAILY Scheduled PRN Acetaminophen (Acetaminophen), 500 MG PO Q4HP PRN Albuterol Sulfate (Albuterol Sulfate Hfa), 108 MCG IN Q4HP PRN Benzonatate (Benzonatate), 1 CAP PO Q8HP PRN Discharge Statement: "Patient was advised to return to the ER or call 911 if any headaches, dizziness, shortness of breath, chest pain, abdominal pain, bleeding, fevers, or worsening of medical condition. Patient was counseled about treatment plan, medications, possible side effects, patientverbalized understanding. All questions were answered to the best of my ability. This discharge took greater then 30 minutes in planning, reviewing documentation, counseling the patient, and discussing with other team members." ASSESSMENT ASSESSMENT Assessment bladder neck contracture and false passage Date of Service: Dec 23, 2024 Billing Provider: JORGE LOGAN MD Common Visit Codes: [id number] DISCH DAY >30min JORGE LOGAN MD Dec 23, 2024 09:32
[2024-12-23 10:05] VITALS: BP 135/72
== END 2024-12-23 11:24 | disposition home or self-care (01) | DRG 500 ==
LOC: ER 03:12 → OVERFLOW 07:43 → WEST WING 12-18 02:20
PROVIDERS: ADMIT Student in an Organized Health Care Education/Training Program; ATTEND Student in an Organized Health Care Education/Training Program
PROC: 0T7C8ZZ Dilation of Bladder Neck, Via Natural or Artificial Opening Endoscopic (ICD-10-PCS; 2024-12-17)
PROC: 30233N1 Transfusion of Nonautologous Red Blood Cells into Peripheral Vein, Percutaneous Approach (ICD-10-PCS; principal; 2024-12-22)
DX: C61 Malignant neoplasm of prostate (principal); D62 Acute posthemorrhagic anemia; N32.0 Bladder-neck obstruction; N13.30 Unspecified hydronephrosis; I16.0 Hypertensive urgency; N18.32 Chronic kidney disease, stage 3b; M10.9 Gout, unspecified; N40.1 Benign prostatic hyperplasia with lower urinary tract symptoms; I12.9 Hypertensive chronic kidney disease with stage 1 through stage 4 chronic kidney disease, or unspecified chronic kidney disease; F41.9 Anxiety disorder, unspecified; F10.20 Alcohol dependence, uncomplicated; J44.9 Chronic obstructive pulmonary disease, unspecified; Z80.42 Family history of malignant neoplasm of prostate; Z91.199 Patient's noncompliance with other medical treatment and regimen due to unspecified reason; Y90.7 Blood alcohol level of 200-239 mg/100 ml; Z79.899 Other long term (current) drug therapy
CPT/HCPCS: 36415; 52000; 70450; 74176; 76775; 76857; 78306; 80048; 80053; 80320; 81001; 82378; 84154; 85007; 85025; 85027; 85610; 85730; 86850; 86900; 86901; 86920; 87086; 93005; 96374; 96375; 99291; G0378; J2405; J7060

== ENCOUNTER 2025-01-19 09:17 | Emergency (ER) | payer MEDICAID ==
[~2025-01-19] VITALS: Ht 175.3 cm; Wt 92.9 kg
[~2025-01-19 09:17] MED LIST changes: -AUG875T PO; -AZIT-185 PO; -BACDST PO; -BENZ100C97 PO; +NIFE1TAB31 PO; +OXYB5TAB14 PO; +TAMS-35 PO
[2025-01-19 09:19] VITALS: TEMP 98.2
[2025-01-19 09:55] VITALS: BP 136/85; PULSE 90; RESP 18; O2SAT 98
--- NOTE | 2025-01-19 10:04 | ED.PDOC ---
General HPI Comments 64 year old presents for leaking Wheeler catheter. Chief Complaint: Tube Replacement Time Seen by MD: 09:28 Primary Care Provider: VICENTA Reviewed notes: Nurses Notes, Medications, Allergies Allergies: Coded Allergies: NO KNOWN ALLERGIES (Unverified , 01/05/19) Home Meds Active Scripts Tamsulosin Hcl (Flomax) 0.4 Mg Cap, 1 CAP PO DAILY, #90 CAP 3 Refills Prov:JORGE LOGAN MD 12/23/24 Oxybutynin Chloride (Oxybutynin Chloride) 5 Mg Tab, 5 MG PO DAILY for 30 Days, #30 TAB 5 Refills Prov:JORGE LOGAN MD 12/23/24 Nifedipine (Nifedipine Er) 30 Mg Tab, 30 MG PO DAILY for 30 Days, #30 TAB 5 Refills Prov:JORGE LOGAN MD 12/23/24 Albuterol Sulfate (Albuterol Sulfate Hfa) 108 Mcg/Act Aer, 108 MCG IN Q4HP PRN, #1 AER Prov:JUAN DIEGO ROSENBERG PAC 08/09/24 Acetaminophen (Acetaminophen) 500 Mg Tab, 500 MG PO Q4HP PRN, #30 TAB Prov:JUAN DIEGO ROSENBERG PAC 08/09/24 Information Source: Patient Mode of Arrival: Ambulatory Past Medical History PAST MEDICAL HISTORY: Cancer, CKF, Gout, HTN Surgical History: Denies all surgeries Family History Family History: Reviewed,noncontributory to illness Social History Smoker: Non-Smoker Alcohol: Heavy Drugs: Denies Drug Use Lives In: Home Physical Exam General Appearance: No Apparent Distress, Normal HEENT: Normal ENT Inspection, Pharynx Normal, TMs Normal Neck: Full Range of Motion, Non-Tender, Normal, Normal Inspection Respiratory: Chest Non-Tender, Lungs Clear, No Accessory Muscle Use, No Respira tory Distress, Normal Breath Sounds Cardiovascular: No Edema, No JVD, No Murmur, No Gallop, Normal Peripheral Pulses, Regular Rate/Rhythm Breast Exam: Deferred Gastrointestinal: No Organomegaly, Non Tender, No Pulsatile Mass, Normal Bowel Sounds, Soft Genitalia: Deferred Pelvic: Deferred Rectal: Deferred Extremities: No calf tenderness, Normal capillary refill, Normal inspection, Normal range of motion, Non-tender, No pedal edema Musculoskeletal : Apperance: Normal Neurologic: Alert, rolling attendant II-XII nml as Tested, No Motor Deficits, Normal Affect, Normal Mood, No Sensory Deficits Cerebellar Function: Normal Reflexes: Normal Skin: Dry, Normal Color, Warm Lymphatic: No Adenopathy Was a procedure done? Was a procedure done?: No Differential Diagnosis Kidney stone (Female): Other X-Ray, Labs, Meds, VS Vital Signs Date Time Temp Pulse Resp B/P (MAP) Pulse Ox O2 Delivery O2 Flow Rate FiO2 01/19/25 09:55 90 18 98 01/19/25 09:55 90 18 136/85 (102) 98 01/19/25 09:19 98.2 105 18 161/92 98 98.2 X-Ray, Labs, Meds, VS Comment Wheeler bag was leaking necessitating a change. Tolerated procedure well. Advised to follow up with the PCP. It strict return precautions were given Time of 1ST Reevaluation: 10:00 Reevaluation 1ST: Improved Patient Education/Counseling: Diagnosis, Treatment Family Education/Counseling: Diagnosis, Treatment SEPSIS Sepsis Screen Date sepsis recognized/suspect: Jan 19, 2025 Time Sepsis recognized/suspect: 899 Recent Procedure: No On Antibiotic Therapy: No Respiratory Rate >20: No Heart Rate >90: Yes Temp<36 C (96.8 F) or >38.3 C: No SBP <90 or MAP <65 mmHG: No New Acute Mental Status Change: No Is the patient on CPAP, BIPAP,: No Vital Signs Date Time Temp Pulse Resp B/P (MAP) Pulse Ox O2 Delivery O2 Flow Rate FiO2 01/19/25 09:55 90 18 98 01/19/25 09:55 90 18 136/85 (102) 98 01/19/25 09:19 98.2 105 18 161/92 98 98.2 Departure 1 Departure Time of Disposition: 10:03 Impression: Primary Impression: Wheeler catheter problem Qualified Codes: [id number] - Unspecified complication of genitourinary prosthetic device, implant and graft, initial encounter Disposition: HOME / SELF CARE / HOMELESS Condition: Stable Discharged With: Self Critical Care Note Critical Care Time?: No Stability Stability form required: No Heart Score Heart Score: Heart Score Response (Comments) Value History N/A 0 EKG N/A 0 Age N/A 0 Risk Factors N/A 0 Troponin N/A 0 Total 0 BALJEET CAMPOS FINANCE ADVISOR Jan 19, 2025 10:04
== END 2025-01-19 10:11 | disposition home or self-care (01) ==
LOC: ER 09:17
DX: T83.9XXA Unspecified complication of genitourinary prosthetic device, implant and graft, initial encounter (principal); Z79.899 Other long term (current) drug therapy
CPT/HCPCS: 51702

== ENCOUNTER 2025-02-16 09:29 | Inpatient (IN) | payer MEDICAID ==
[~2025-02-16] VITALS: Ht 175.3 cm; Wt 90.9 kg
--- NOTE | 2025-02-16 10:08 | ED.PDOC ---
History of Present Illness HPI Comments 64 y/o M, with PMHx of HTN, GOUT, and CKF presents to the ED for CC of Parnell catheter replacement. Patient states, his Parnell-catheter broke today (02/16/25) and is now lodged in the shaft of his penis. Per [facility] staff, patient was brought in by [facility]- staff d/t elevated blood pressure. At this time patient is confused, appearing to have retrograde amnesia and is unable to recall events leading him to be present in the ED. Patient is hypertensive at this time with a blood pressure of 209/123mmHg; patient moved to ED bed 07 care is ongoing at this time. Chief Complaint: Tube Replacement Time Seen by MD: 09:50 Primary Care Provider: VICENTA Rios Notes: Nurses Notes, Medications, Allergies Allergies: Coded Allergies: NO KNOWN ALLERGIES (Unverified , 01/05/19) Home Meds Active Scripts Tamsulosin Hcl (Flomax) 0.4 Mg Cap, 1 CAP PO DAILY, #90 CAP 3 Refills Prov:JORGE LOGAN MD 12/23/24 Oxybutynin Chloride (Oxybutynin Chloride) 5 Mg Tab, 5 MG PO DAILY for 30 Days, #30 TAB 5 Refills Prov:JORGE LOGAN MD 12/23/24 Nifedipine (Nifedipine Er) 30 Mg Tab, 30 MG PO DAILY for 30 Days, #30 TAB 5 Refills Prov:JORGE LOGAN MD 12/23/24 Albuterol Sulfate (Albuterol Sulfate Hfa) 108 Mcg/Act Aer, 108 MCG IN Q4HP PRN, #1 AER Prov:JUAN DIEGO ROSENBERG PAC 08/09/24 Acetaminophen (Acetaminophen) 500 Mg Tab, 500 MG PO Q4HP PRN, #30 TAB Prov:JUAN DIEGO ROSENBERG PAC 08/09/24 Information Source: Patient Mode of Arrival: Ambulatory Severity: Moderate Timing: Days Duration: Since onset Prehospital treatment: None Past Medical History PAST MEDICAL HISTORY: Cancer, CKF, Gout, HTN Surgical History: Denies all surgeries Family History Family History: Reviewed,noncontributory to illness Social History Smoker: Non-Smoker Alcohol: Heavy Drugs: Denies Drug Use Lives In: Home Constitutional: denies: chills, diaphoresis, fatigue, fever, malaise, sweats, weakness, others EENTM: denies: blurred vision, double vision, ear bleeding, ear discharge, ear drainage, ear pain, ear ringing, eye pain, eye redness, hearing loss, mouth pain, mouth swelling, nasal discharge, nose bleeding, nose congestion, nose pain, photophobia, tearing, throat pain, throat swelling, voice changes, others Respiratory: denies: cough, hemoptysis, orthopnea, SOB at rest, shortness of breath, SOB with excertion, stridor, wheezing, others Cardiovascular: denies: chest pain, dizzy spells, diaphoresis, Dyspnea on exertion, edema, irregular heart beat, left arm pain, lightheadedness, palpitations, PND, syncope, others Gastrointestinal: denies: abdomen distended, abdominal pain, blood streaked bowels, constipated, diarrhea, dysphagia, difficulty swallowing, hematemesis, melena, nausea, poor appetite, poor fluid intake, rectal bleeding, rectal pain, vomiting, others Genitourinary: denies: burning, dysuria, flank pain, frequency, hematuria, incontinence, penile discharge, penile sore, pain, testicle pain, testicle swelling, urgency, others Neurological: denies: dizziness, fainting, headache, left sided numbness, left sided weakness, numbness, paresthesia, pre-existing deficit, right sided numbness, right sided weakness, seizure, speech problems, tingling, tremors, weakness, others Musculoskeletal: denies: back pain, gout, joint pain, joint swelling, muscle pain, muscle stiffness, neck pain, others Integumetry: denies: bruises, change in color, change in hair/nails, dryness, laceration, lesions, lumps, rash, wounds, others Allergic/Immunocompromised: denies: Difficulty Healing, Frequent Infections, Hives, Itching, others Hematologic/Lymphatic: denies: anemia, blood clots, easy bleeding, easy bruising, swollen glands, others Endocrine: denies: excessive hunger, excessive sweating, excessive thirst, excessive urination, flushing, intolerance to cold, intolerance to heat, unexplained weight gain, unexplained weight loss, others Psychiatric: denies: anxiety, bipolar disorder, depression, hopeless, panic disorder, schizophrenia, sleepless, suicidal, others All Other Systems: Reviewed and Negative Physical Exam General Appearance: Moderate Distress HEENT: Normal ENT Inspection, Pharynx Normal, TMs Normal Neck: Full Range of Motion, Non-Tender, Normal, Normal Inspection Respiratory: Chest Non-Tender, Lungs Clear, No Accessory Muscle Use, No Respiratory Distress, Normal Breath Sounds Cardiovascular: No Edema, No JVD, No Murmur, No Gallop, Normal Peripheral Pulses, Tachycardia Breast Exam: Deferred Gastrointestinal: No Organomegaly, Non Tender, No Pulsatile Mass, Normal Bowel Sounds, Soft Genitalia: Deferred Pelvic: Deferred Rectal: Deferred Extremities: No calf tenderness, Normal capillary refill, Normal inspection, Normal range of motion, Non-tender, No pedal edema Musculoskeletal : Apperance: Normal 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 Was a procedure done?: No Differential Dx Considerations may include: HYPERTENSIVE URGENCY, PARNELL CATHETER REPLACEMENT X-Ray, Labs, Meds, VS Vital Signs Date Time Temp Pulse Resp B/P (MAP) Pulse Ox O2 Delivery O2 Flow Rate FiO2 02/16/25 11:19 89 18 140/84 (102) 93 02/16/25 10:45 98.7 104 16 162/124 (137) 95 98.7 02/16/25 10:45 113 162/124 02/16/25 10:38 108 15 96 Room Air* 0 21 02/16/25 10:10 98.7 108 16 200/104 (136) 95 98.7 02/16/25 09:39 97.9 123 19 195/137 97 97.9 Lab Test 02/16/25 11:08 02/16/25 10:01 Range/Units Urine Color Pending Urine Clarity Pending Urine pH Pending Urine Specific [place] Pending Urine Protein Pending Urine Ketones Pending Urine Blood Pending Urine Nitrite Pending Urine Bilirubin Pending Urine Urobilinogen Pending Urine Leukocyte Esterase Pending Urine RBC Pending Urine Microscopic WBC Pending Urine Squamous Epithelial Cells Pending Urine Bacteria Pending Urine Glucose Pending White Blood Count 8.8 4.4-10.8 10^3/uL Red Blood Count 3.15 L 4.5-5.90 10^6/uL Hemoglobin 8.9 L 13.5-17.5 g/dL Hematocrit 27.5 L 41.0-53.0 % Mean Corpuscular Volume 87.3 80.0-100.0 fL Mean Corpuscular Hemoglobin 28.1 28.0-32.0 pg Mean Corpuscular Hemoglobin Concent 32.2 32.0-36.0 g/dL Red Cell Distribution Width 21.7 H 11.8-14.3 % Platelet Count 179 140-450 10^3/uL Mean Platelet Volume 9.3 6.9-10.8 fL Neutrophils (%) (Auto) 37.0-80.0 % Lymphocytes (%) (Auto) 10.0-50.0 % Monocytes (%) (Auto) 0.0-12.0 % Basophils (%) (Auto) 0.0-2.0 % Neutrophils # (Auto) 1.6-8.6 10 ^3/uL Lymphocytes # (Auto) 0.4-5.4 10 ^3/uL Monocytes # (Auto) 0-1.3 10 ^3/uL Differential Total Cells Counted Pending Neutrophils % (Manual) Pending Band Neutrophils % (Manual) Pending Lymphocytes % (Manual) Pending Monocytes % (Manual) Pending Eosinophils % (Manual) Pending Basophils % (Manual) Pending Metamyelocytes % (manual) Pending Myelocytes % (Manual) Pending Promyelocytes % (Manual) Pending Blast Cells % (Manual) Pending Reactive Lymphocytes Pending Platelet Estimate Pending Sodium Level 148 H 136-145 mmol/L Potassium Level 3.7 3.5-5.1 mmol/L Chloride Level 112 H 98-107 mmol/L Carbon Dioxide Level 24 20-31 mmol/L Anion Gap 12 5-15 Blood Urea Nitrogen 14 9-23 mg/dL Creatinine 1.28 0.700-1.30 mg/dL Glomerular Filtration Rate Calc 63 >90 mL/min BUN/Creatinine Ratio 10.9 10.0-20.0 Serum Glucose 110 H 74-106 mg/dL Lactic Acid Level 1.8 0.4-2.0 mmol/L Calcium Level 9.0 8.7-10.4 mg/dL Troponin I High Sensitivity 33 </=54 ng/L Plasma/Serum Blood Alcohol 356.8 H <10 mg/dL Current Medications Medications (Trade) Dose Ordered Sig/Jamie Route Start Time Stop Time Status Last Admin Ceftriaxone Sodium 50 ml @ 100 mls/hr ONCE ONCE IV 02/16/25 10:00 02/16/25 10:29 DC 02/16/25 10:10 Sodium Chloride 1,000 ml @ 1,000 mls/hr Q1H ONCE IV 02/16/25 10:00 02/16/25 10:59 DC 02/16/25 10:10 Sodium Chloride 1,000 ml @ 150 mls/hr Q6H40M ONCE IV 02/16/25 10:00 02/16/25 16:39 02/16/25 10:10 Labetalol HCl (Labetalol HCl) 10 mg ONCE ONCE IV 02/16/25 10:30 02/16/25 10:31 DC 02/16/25 10:45 Lorazepam (Ativan Inj) 1 mg ONCE ONCE IV 02/16/25 11:00 02/16/25 11:02 DC 02/16/25 11:05 Patient disoriented. Tachycardic. Blood pressure elevated. Saturation pristine on room air. No head trauma. Was given labetalol. Possibly alcohol related. Continue monitoring. [place] [id number] Ph: [phone] DIAGNOSTIC IMAGING Diagnostic Imaging Report : [id number] Signed PATIENT: KELVIN BLANCACCT: [id number] UNIT: [id number] : 1960 LOC: ER ROOM / BED: / AGE / SEX: 64 / M ADM STATUS: REG ER SERVICE 1021 ORDERING PHYSICIAN: BRIAN PANIAGUA MD PROCEDURE(s): HWOCT - HEAD WITHOUT CONTRAST REASON: altered ORDER NUMBER(s): [id number], ACCESSION NUMBER(s): [id number] CLINICAL INFORMATION: Altered mental status. TECHNIQUE: Axial imaging was obtained through the brain without contrast. Coronal and sagittal reformatted images were obtained, reviewed, and stored. Images were reviewed in brain and bone windows. All CT scans at this medical facility are performed using dose modulation techniques as appropriate to a performed exam including the following: Automated exposure control was utilized; adjustment of the MA and/or KV according to patient size; and use of iterative reconstruction technique. CTDIvol = 68.64 mGy DLP = 1352.29 mGy-cm COMPARISON: CT HEAD WITHOUT CONTRAST on DOS: 12/17/24, HEAD WITHOUT CONTRAST on DOS: 04/08/21 FINDINGS: There is no acute intracranial hemorrhage. No mass effect or midline shift. The ventricles and sulci are within normal limits in size for age. Basal cisterns are patent. The calvarium is unremarkable. Mild mucosal thickening of the paranasal sinuses. Visualized portions of the mastoid air cells are clear. IMPRESSION: 1. No CT evidence of acute intracranial abnormality. 2. Nonacute findings as described above. ATED BY: CORY RODGERS DO DICTATED DATE/TIME: 02/16/251056 SIGNED BY: CORY RODGERS DO SIGNED DATE/TIME: 02/16/251056 CC: Time of 1ST Reevaluation: 10:20 Reevaluation 1ST: Unchanged Patient Education/Counseling: Diagnosis, Treatment Family Education/Counseling: No Family Present SEPSIS Sepsis Screen Date sepsis recognized/suspect: Feb 16, 2025 Time Sepsis recognized/suspect: 938 Recent Procedure: No Respiratory Rate >20: No Heart Rate >90: Yes Temp<36 C (96.8 F) or >38.3 C: No SBP <90 or MAP <65 mmHG: No New Acute Mental Status Change: No Is the patient on CPAP, BIPAP,: No Physician Orders Complete Blood Count (02/16/25 09:49) Urinalysis (02/16/25 09:57) Blood Culture (02/16/25 09:57) Sodium Chloride 0.9% (02/16/25 10:00) Head Without Contrast (02/16/25 10:21) Manual Differential (02/16/25 10:01) Vital Signs Date Time Temp Pulse Resp B/P (MAP) Pulse Ox O2 Delivery O2 Flow Rate FiO2 02/16/25 11:19 89 18 140/84 (102) 93 02/16/25 10:45 98.7 104 16 162/124 (137) 95 98.7 02/16/25 10:45 113 162/124 02/16/25 10:38 108 15 96 Room Air* 0 21 02/16/25 10:10 98.7 108 16 200/104 (136) 95 98.7 9/30/25 09:39 97.9 123 19 195/137 97 97.9 Laboratory Tests Test 02/16/25 10:01 Lactic Acid Level 1.8 mmol/L (0.4-2.0) White Blood Count 8.8 10^3/uL (4.4-10.8) Medications Medications Dose Ordered Sig/Jamie Route Start Time Stop Time Status Last Admin Dose Admin Ceftriaxone Sodium 50 ml @ 100 mls/hr ONCE ONCE IV 02/16/25 10:00 02/16/25 10:29 DC 02/16/25 10:10 Labetalol HCl 10 mg ONCE ONCE IV 02/16/25 10:30 02/16/25 10:31 DC 02/16/25 10:45 Lorazepam 1 mg ONCE ONCE IV 02/16/25 11:00 02/16/25 11:02 DC 02/16/25 11:05 Sodium Chloride 1,000 ml @ 150 mls/hr Q6H40M ONCE IV 02/16/25 10:00 02/16/25 16:39 02/16/25 10:10 Sodium Chloride 1,000 ml @ 1,000 mls/hr Q1H ONCE IV 02/16/25 10:00 02/16/25 10:59 DC 02/16/25 10:10 Departure 1 Departure Time of Disposition: 10:19 Impression: Primary Impression: Metabolic encephalopathy Additional Impression: Hypertensive emergency Disposition: 09 ADMITTED INPATIENT Admit to: Med Surg Condition: Guarded Critical Care Note Critical Care Time?: Yes (90 min-critical care time only) Stability Stability form required: No Heart Score Heart Score: Heart Score Response (Comments) Value History N/A 0 EKG N/A 0 Age N/A 0 Risk Factors N/A 0 Troponin N/A 0 Total 0 I personally scribed for BRIAN PANIAGUA MD ([email or web address]) on 02/16/25 at 10:08. Electronically submitted by Adelaide Carrasquillo ([email or web address]). I personally scribed for BRIAN PANIAGUA MD ([email or web address]) on 02/16/25 at 11:33. Electronically submitted by Adelaide Carrasquillo ([email or web address]). BRIAN PANIAGUA MD Feb 16, 2025 10:08
[2025-02-16] MEDS: SODIUM CHLORIDE 0.9% 1,000 ML IV ONE ×3 (10:10→19:04)
[2025-02-16 10:24] LABS: Hematocrit 27.5 % (41.0-53.0); Hemoglobin 8.9 g/dL (13.5-17.5); Mean Corpuscular Hemoglobin 28.1 pg (28.0-32.0); Mean Corpuscular Volume 87.3 fL (80.0-100.0)
[2025-02-16 10:30] LABS: Potassium 3.7 mmol/L (3.5-5.1)
[2025-02-16 10:31] LABS: Anion Gap 12 (5-15); Calcium 9.0 mg/dL (8.7-10.4); Carbon Dioxide 24 mmol/L (20-31)
[2025-02-16 10:33] LABS: Chloride 112 mmol/L (98-107); Sodium 148 mmol/L (136-145)
[2025-02-16 10:36] LABS: BUN/Creatinine Ratio 10.9 (10.0-20.0); Blood Urea Nitrogen 14 mg/dL (9-23)
[2025-02-16 10:38] VITALS: PULSE 108; RESP 15; O2SAT 96
[2025-02-16 10:38] LABS: Glucose 110 mg/dL (74-106)
[2025-02-16] MEDS: LABETALOL HCL 20 MG/4 ML VL IV ONE (10:45)
--- NOTE | 2025-02-16 11:00 | DVH ---
CLINICAL INFORMATION: Altered mental status. TECHNIQUE: Axial imaging was obtained through the brain without contrast. Coronal and sagittal reform atted images were obtained, reviewed, and stored. Images were reviewed in brain and bone windows. Al l CT scans at this medical facility are performed using dose modulation techniques as appropriate to a performed exam including the following: Automated exposure control was utilized; adjustment of the MA and/or KV according to patient size; and use of iterative reconstruction technique. CTDIvol = 68.6 4 mGy DLP = 1352.29 mGy-cm COMPARISON: CT HEAD WITHOUT CONTRAST on DOS: 12/17/24, HEAD WITHOUT CONTRAST on DOS: 04/08/21 FINDINGS: There is no acute intracranial hemorrhage. No mass effect or midline shift. The ventricles and sulci are within normal limits in size for age. Basal cisterns are patent. The calvarium is unre markable. Mild mucosal thickening of the paranasal sinuses. Visualized portions of the mastoid air ce lls are clear. IMPRESSION: 1. No CT evidence of acute intracranial abnormality. 2. Nonacute findings as described above.
[2025-02-16] MEDS: LORazepam 2MG/ML-1ML VIAL IV ONE (11:05)
[2025-02-16] MEDS: LORazepam 2MG/ML-1ML VIAL ONE (11:06)
[2025-02-16 11:32] LABS: Urine Protein, UAD 1+ (Negative)
[2025-02-16 11:41] LABS: Anisocytosis Slight; Nucleated Red Blood Cells % 2.0 %; Total Cells Counted 100.0 (100)
[2025-02-16] MEDS ORDERED: DOCUSATE SOD 100 MG CAP PO PRN (12:00)
[2025-02-16] MEDS ORDERED: ONDANSETRON HCL 4 MG/2 ML VIAL IV PRN (12:00)
[2025-02-16] MEDS ORDERED: ACETAMINOPHEN 325 MG TAB PO PRN (12:00)
[2025-02-16] MEDS ORDERED: LORazepam 2MG/ML-1ML VIAL IV PRN (12:15)
--- NOTE | 2025-02-16 12:28 | DVHINCON2 ---
Date of service: Feb 16, 2025 Referring Physician Hospitalist Reason for Consultation cote exchange History of Present Illness History Source: Patient, RN Notes, MD Notes Exam Limitations: No limitations HPI 64 yo male PMH of prostate cancer, BPH, HTN presented to the ER with c/o cote catheter malfunction. The bag had become detached from the catheter and was leak ing. Pt presented extremely intoxicated. He reports he did drive here from his home. I spoke with his sister Maru and she reports he has an auth to see urology but has not had an appt and his catheter has not been changed. 12/17/24 64-year-old male with a past medical history of BPH, prostate cancer (MARKOS 7) diagnosed approximately two years ago, non-compliant with ADT and no Hx of radiation, alcoholism, HTN, CKD, gout, and prior prostate surgery presents with gross hematuria for the past two days. The patient is a poor historian. He reports being on oral therapy for his prostate cancer. The patient ran out of his medication 2 months ago and has not followed up with urology. He also reports daily alcohol use, with his last drink last night, and denies a history of withdrawal seizures. On arrival, vitals showed elevated blood pressure up to 230/140. Labs revealed hemoglobin 10.0, creatinine 1.62, otherwise unremarkable CBC. CT imaging demonstrated a urinary bladder eccentric mass with wall thickening of 7 mm, concerning for malignancy and possible obstruction. CT of the chest was unremarkable for metastatic disease. PSA level is pending. Patient was started on normal saline and given IV labetalol for blood pressure control. PT was found to be in acute urinary retention. RN placed a 3 way cote for CBI however it was evident that the cote was malpositioned and not in the bladder. Malpositioned cote was removed. 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 Unable to pass coude. Therefore bedside cystoscopy was done a cote placed over guidewire and confirmed by bedside ultrasound. approx 1 liter of sanguinous urine with clots was noted. patient tolerated well and was medicated for pain. He was grateful for relief. Home Meds Active Scripts Tamsulosin Hcl (Flomax) 0.4 Mg Cap, 1 CAP PO DAILY, #90 CAP 3 Refills Prov:JORGE LOGAN MD 12/23/24 Oxybutynin Chloride (Oxybutynin Chloride) 5 Mg Tab, 5 MG PO DAILY for 30 Days, #30 TAB 5 Refills Prov:JORGE OLGAN MD 12/23/24 Nifedipine (Nifedipine Er) 30 Mg Tab, 30 MG PO DAILY for 30 Days, #30 TAB 5 Refills Prov:JORGE LOGAN MD 12/23/24 Albuterol Sulfate (Albuterol Sulfate Hfa) 108 Mcg/Act Aer, 108 MCG IN Q4HP PRN, #1 AER Prov:JUAN DIEGO ROSENBERG PAC 08/09/24 Acetaminophen (Acetaminophen) 500 Mg Tab, 500 MG PO Q4HP PRN, #30 TAB Prov:SHAKIRAJUAN DIEGO CARY PAC 08/09/24 Past Medical History Cardiac: HTN Renal/: Benign prostatic enlarg., Prostate cancer Patient Family History: FH: brain tumor G8 MOTHER Prostate carcinoma G8 FATHER Smoker: No Hx (Negative) Alocohol: Heavy Drugs: None Domestic Violence: Neg Review of Systems Genitourinary: Incontinence H&P Exam Vital Signs Vital Signs Date Time Temp Pulse Resp B/P (MAP) Pulse Ox O2 Delivery O2 Flow Rate FiO2 02/16/25 12:19 91 156/98 02/16/25 11:19 18 93 02/16/25 10:45 98.7 98.7 02/16/25 10:38 Room Air* 0 21 General Appeara: Well developed, Well nourished, Normal Appearance, Obese Pulmonary/Respiratory: Normal inspection, Normal breath sounds, Chest non- tender, Lungs clear Cardiovascular/Chest: Normal inspection, Regular rate, 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: Normal hearing, Normal speech Eye contact/ Speech: Cooperative, Good eye contact, Normal speech Skin Exam: Normal inspection, Normal color, Warm/dry Labs/Xrays Labs Test 02/16/25 11:08 02/16/25 10:01 Range/Units Urine Color Colorless Yellow Urine Clarity Clear Clear Urine pH 6.5 5.0-9.0 Urine Specific [place] 1.009 1.001-1.035 Urine Protein 1+ H Negative Urine Ketones Negative Negative Urine Blood Trace H Negative /uL Urine Nitrite 1+ H Negative Urine Bilirubin Negative Negative Urine Urobilinogen Normal Negative mg/dL Urine Leukocyte Esterase 3+ Negative /uL Urine RBC 3 0 - 3 /hpf Urine Microscopic WBC 27 H 0-3 /HPF Urine Squamous Epithelial Cells None seen <5 /hpf Urine Bacteria Few H None Seen /hpf Urine Glucose Normal Normal mg/dL White Blood Count 8.8 4.4-10.8 10^3/uL Red Blood Count 3.15 L 4.5-5.90 10^6/uL Hemoglobin 8.9 L 13.5-17.5 g/dL Hematocrit 27.5 L 41.0-53.0 % Mean Corpuscular Volume 87.3 80.0-100.0 fL Mean Corpuscular Hemoglobin 28.1 28.0-32.0 pg Mean Corpuscular Hemoglobin Concent 32.2 32.0-36.0 g/dL Red Cell Distribution Width 21.7 H 11.8-14.3 % Platelet Count 179 140-450 10^3/uL Mean Platelet Volume 9.3 6.9-10.8 fL Neutrophils (%) (Auto) 37.0-80.0 % Lymphocytes (%) (Auto) 10.0-50.0 % Monocytes (%) (Auto) 0.0-12.0 % Basophils (%) (Auto) 0.0-2.0 % Neutrophils # (Auto) 1.6-8.6 10 ^3/uL Lymphocytes # (Auto) 0.4-5.4 10 ^3/uL Monocytes # (Auto) 0-1.3 10 ^3/uL Differential Total Cells Counted 100.0 100 Neutrophils % (Manual) 18 L 37.0-80.0 Band Neutrophils % (Manual) 0 Lymphocytes % (Manual) 69 H 10.0-50.0 Monocytes % (Manual) 13 H 0-12 Eosinophils % (Manual) 0 0-7 Basophils % (Manual) 0 0.0-2.0 Metamyelocytes % (manual) 0 Myelocytes % (Manual) 0 Promyelocytes % (Manual) 0 Blast Cells % (Manual) 0 Nucleated Red Blood Cells 2.0 % Reactive Lymphocytes 0 Platelet Estimate Adequate Anisocytosis (manual) Slight Sodium Level 148 H 136-145 mmol/L Potassium Level 3.7 3.5-5.1 mmol/L Chloride Level 112 H 98-107 mmol/L Carbon Dioxide Level 24 20-31 mmol/L Anion Gap 12 5-15 Blood Urea Nitrogen 14 9-23 mg/dL Creatinine 1.28 0.700-1.30 mg/dL Glomerular Filtration Rate Calc 63 >90 mL/min BUN/Creatinine Ratio 10.9 10.0-20.0 Serum Glucose 110 H 74-106 mg/dL Lactic Acid Level 1.8 0.4-2.0 mmol/L Calcium Level 9.0 8.7-10.4 mg/dL Troponin I High Sensitivity 33 </=54 ng/L Plasma/Serum Blood Alcohol 356.8 H <10 mg/dL Assessment/Plan Problem List: (1) ETOH abuse (2) Prostate cancer (3) Bladder neck contracture (4) Complication of Cote catheter (5) Toxic metabolic encephalopathy (6) Urinary retention due to benign prostatic hyperplasia (7) Rising PSA following treatment for malignant neoplasm of prostate (8) Non-compliance Plan cote was exchanged. pt needs urology follow up for cystoscopy Plan discussed with: Patient, Other KAY FIGUEROA NP Feb 16, 2025 12:28
--- NOTE | 2025-02-16 12:45 | DVHHP2 ---
History of Present Illness Reason for Visit: Cote catheter leaking History of Present Illness Jayy Gray is a 64-year-old male with past medical history of prostate cancer, hypertension, gout, and chronic kidney disease, who came to the hospital because his Cote catheter was leaking. When patient arrived to ER he stated that his Cote catheter was broken in his penis and was leaking. When he was assessed it was determined his catheter was intact and leaking do to the leg bag was missing and he was leaking urine all over himself. Patient was altered and forgetful while in the ER. He has a history of ETOH abuse. Blood alcohol level was 356.8, and he was hypertensive. On assessment the patient is unable to answer all questions, is unsure where his leg bag went, and how much he drank. Patient had Cote catheter placed here by urology on December 17, 2024. According to his sister he has not had the catheter exchanged, will consult urology. Cardiovascular: HTN Smoke: No ALCOHOL: heavy Drugs: None Lives: Alone Domestic Violence: Neg Review of Systems Constitutional: No: Fever, Chills, Sweats, Weakness, Malaise, Other Eyes: No: Pain, Vision change, Conjunctivae inflammation, Eyelid inflammation, Other, Redness ENT: No: Ear pain, Ear discharge, Nose pain, Nose discharge, Nose congestion, Mouth pain, Mouth swelling, Throat pain, Throat swelling, Other Respiratory: No: Cough, Dry, Shortness of breath, SOB with excertion, Wheezing, Hemoptysis, Pleuritic Pain, Sputum, Wheezing, Other Cardiovascular: No: Chest Pain, Palpitations, Orthopnea, Paroxysmal Noc. Dyspnea, Edema, Lt Headedness, Other Gastrointestinal: No: Nausea, Vomiting, Abdominal Pain, Diarrhea, Constipation, Melena, Hematochezia, Other Genitourinary: No Dysuria, No Frequency, No Incontinence, No Hematuria, No Retention; Other (cote catheter malfunction) Musculoskeletal: No: other, neck pain, shoulder pain, arm pain, back pain, hand pain, leg pain, foot pain Skin: No: Rash, Lesions, Jaundice, Bruising, Other Neurological: No: Weakness, Numbness, Incoordination, Change in speech, Confusion, Seizures, Other Allergies: Coded Allergies: NO KNOWN ALLERGIES (Unverified , 01/05/19) Medications Current Medications Medications Dose Ordered Sig/Jamie Route Start Time Stop Time Status Last Admin Dose Admin Acetaminophen/ Hydrocodone Bitart 1 tab Q4HP PRN PO 02/16/25 12:00 UNV Ondansetron HCl 4 mg Q4HP PRN IV 02/16/25 12:00 UNV Docusate Sodium 100 mg BIDPRN PRN PO 02/16/25 12:00 UNV Acetaminophen 650 mg Q6HP PRN PO 02/16/25 12:00 UNV Nifedipine 30 mg DAILY PO 02/17/25 10:00 UNV Oxybutynin Chloride 5 mg DAILY PO 02/17/25 10:00 UNV Tamsulosin HCl 0.4 mg DAILY PO 02/17/25 10:00 UNV Exam Vital Signs Vital Signs Date Time Temp Pulse Resp B/P (MAP) Pulse Ox O2 Delivery O2 Flow Rate FiO2 02/16/25 11:19 89 18 140/84 (102) 93 02/16/25 10:45 98.7 98.7 02/16/25 10:38 Room Air* 0 21 General Appearance: Alert, Oriented X3, Cooperative, mild distress HEENT: Atraumatic, PERRLA Respiratory: Clear to auscultation, Normal air movement Cardiovascular: Regular rate, Normal S1, Normal S2, No murmurs Abdominal: Normal bowel sounds, Soft, No tenderness, No hepatospenomegaly Extremities: No clubbing, No cyanosis, No edema, Normal pulses Skin: No rashes, No breakdown, No significant lesion Neuro: Normal gait, Other (forgetful ) Labs/Xrays Labs Test 02/16/25 11:08 02/16/25 10:01 Range/Units Urine Color Colorless Yellow Urine Clarity Clear Clear Urine pH 6.5 5.0-9.0 Urine Specific [place] 1.009 1.001-1.035 Urine Protein 1+ H Negative Urine Ketones Negative Negative Urine Blood Trace H Negative /uL Urine Nitrite 1+ H Negative Urine Bilirubin Negative Negative Urine Urobilinogen Normal Negative mg/dL Urine Leukocyte Esterase 3+ Negative /uL Urine RBC 3 0 - 3 /hpf Urine Microscopic WBC 27 H 0-3 /HPF Urine Squamous Epithelial Cells None seen <5 /hpf Urine Bacteria Few H None Seen /hpf Urine Glucose Normal Normal mg/dL White Blood Count 8.8 4.4-10.8 10^3/uL Red Blood Count 3.15 L 4.5-5.90 10^6/uL Hemoglobin 8.9 L 13.5-17.5 g/dL Hematocrit 27.5 L 41.0-53.0 % Mean Corpuscular Volume 87.3 80.0-100.0 fL Mean Corpuscular Hemoglobin 28.1 28.0-32.0 pg Mean Corpuscular Hemoglobin Concent 32.2 32.0-36.0 g/dL Red Cell Distribution Width 21.7 H 11.8-14.3 % Platelet Count 179 140-450 10^3/uL Mean Platelet Volume 9.3 6.9-10.8 fL Neutrophils (%) (Auto) 37.0-80.0 % Lymphocytes (%) (Auto) 10.0-50.0 % Monocytes (%) (Auto) 0.0-12.0 % Basophils (%) (Auto) 0.0-2.0 % Neutrophils # (Auto) 1.6-8.6 10 ^3/uL Lymphocytes # (Auto) 0.4-5.4 10 ^3/uL Monocytes # (Auto) 0-1.3 10 ^3/uL Differential Total Cells Counted 100.0 100 Neutrophils % (Manual) 18 L 37.0-80.0 Band Neutrophils % (Manual) 0 Lymphocytes % (Manual) 69 H 10.0-50.0 Monocytes % (Manual) 13 H 0-12 Eosinophils % (Manual) 0 0-7 Basophils % (Manual) 0 0.0-2.0 Metamyelocytes % (manual) 0 Myelocytes % (Manual) 0 Promyelocytes % (Manual) 0 Blast Cells % (Manual) 0 Nucleated Red Blood Cells 2.0 % Reactive Lymphocytes 0 Platelet Estimate Adequate Anisocytosis (manual) Slight Sodium Level 148 H 136-145 mmol/L Potassium Level 3.7 3.5-5.1 mmol/L Chloride Level 112 H 98-107 mmol/L Carbon Dioxide Level 24 20-31 mmol/L Anion Gap 12 5-15 Blood Urea Nitrogen 14 9-23 mg/dL Creatinine 1.28 0.700-1.30 mg/dL Glomerular Filtration Rate Calc 63 >90 mL/min BUN/Creatinine Ratio 10.9 10.0-20.0 Serum Glucose 110 H 74-106 mg/dL Lactic Acid Level 1.8 0.4-2.0 mmol/L Calcium Level 9.0 8.7-10.4 mg/dL Troponin I High Sensitivity 33 </=54 ng/L Plasma/Serum Blood Alcohol 356.8 H <10 mg/dL TECHNIQUE: Axial imaging was obtained through the brain without contrast. FINDINGS: There is no acute intracranial hemorrhage. No mass effect or midline shift. The ventricles and sulci are within normal limits in size for age. Basal cisterns are patent. The calvarium is unremarkable. Mild mucosal thickening of the paranasal sinuses. Visualized portions of the mastoid air cells are clear. IMPRESSION: 1. No CT evidence of acute intracranial abnormality. 2. Nonacute findings as described above. SEPSIS Sepsis Screen Date sepsis recognized/suspect: Feb 16, 2025 Time Sepsis recognized/suspect: 1000 Recent Procedure: No On Antibiotic Therapy: No Respiratory Rate >20: No Heart Rate >90: Yes Temp<36 C (96.8 F) or >38.3 C: No SBP <90 or MAP <65 mmHG: No New Acute Mental Status Change: No Is the patient on CPAP, BIPAP,: No Physician Orders Blood Culture (02/16/25 09:57) Sodium Chloride 0.9% (02/16/25 10:00) Head Without Contrast (02/16/25 10:21) * Urology Consult (02/16/25 11:58) Admit (02/16/25 11:58) Code Status (02/16/25 11:58) 2 Gm Sodium Diet (02/16/25 Lunch) Hydrocodone-Acet 5/325mg Tab ([place] 5/32 (02/16/25 12:00) Ondansetron Hcl (Zofran) (02/16/25 12:00) Docusate Sodium Capsule (Colace Capsule) (02/16/25 12:00) Fall Risk Precautions In Place QSHIFT (02/16/25 11:58) Complete Blood Count (02/17/25 04:00) Comprehensive Metabolic Panel (02/17/25 04:00) Condition: Serious (02/16/25 11:58) Acetaminophen Tablet (Tylenol Tablet) (02/16/25 12:00) Nifedipine Er (Procardia Xl (Time-Releas (02/17/25 10:00) Oxybutynin Chloride Tablet (Ditropan Tab (02/17/25 10:00) Tamsulosin Hydrochloride (Flomax) (02/17/25 10:00) Nifedipine Er (Procardia Xl (Time-Releas (02/16/25 12:15) Lorazepam 2mg/Ml Inj (Ativan Inj) (02/16/25 12:15) Vital Signs Date Time Temp Pulse Resp B/P (MAP) Pulse Ox O2 Delivery O2 Flow Rate FiO2 02/16/25 11:19 89 18 140/84 (102) 93 02/16/25 10:45 98.7 104 16 162/124 (137) 95 98.7 02/16/25 10:45 113 162/124 02/16/25 10:38 108 15 96 Room Air* 0 21 02/16/25 10:10 98.7 108 16 200/104 (136) 95 98.7 02/16/25 09:39 97.9 123 19 195/137 97 97.9 Laboratory Tests Test 02/16/25 10:01 Lactic Acid Level 1.8 mmol/L (0.4-2.0) White Blood Count 8.8 10^3/uL (4.4-10.8) Medications Medications Dose Ordered Sig/Jamie Route Start Time Stop Time Status Last Admin Dose Admin Ceftriaxone Sodium 50 ml @ 100 mls/hr ONCE ONCE IV 02/16/25 10:00 02/16/25 10:29 DC 02/16/25 10:10 100 MLS/HR Labetalol HCl 10 mg ONCE ONCE IV 02/16/25 10:30 02/16/25 10:31 DC 02/16/25 10:45 10 MG Lorazepam 1 mg ONCE ONCE IV 02/16/25 11:00 02/16/25 11:02 DC 02/16/25 11:05 1 MG Sodium Chloride 1,000 ml @ 150 mls/hr Q6H40M ONCE IV 02/16/25 10:00 02/16/25 16:39 02/16/25 10:10 150 MLS/HR Sodium Chloride 1,000 ml @ 1,000 mls/hr Q1H ONCE IV 02/16/25 10:00 02/16/25 10:59 DC 02/16/25 10:10 1,000 MLS/HR Assessment/Plan Assessment/Plan Assessment: Toxic metabolic encephalopathy, Uncontrolled hypertension, Cote catheter malfunction, Prostate cancer, Plan: Admit to Med-Surg, Urology consult for catheter exchange, IV hydration, Tapering Librium, PRN Ativan, PRN antihypertensives, Home medications reconciled, Consider neurology consult if patient worsens. Plan discussed with: Patient My Orders Orders - RAFIQ REYNA Procedure Category Date Status Time * Urology Consult CONS 02/16/25 Transmitted 11:58 Admit ADMIT 02/16/25 Transmitted 11:58 Code Status CODE 02/16/25 Transmitted 11:58 2 Gm Sodium Diet DIET 02/16/25 Transmitted Lunch Hydrocodone-Acet PHA 02/16/25 Logged 5/325mg Tab ([place] 12:00 Ondansetron Hcl PHA 02/16/25 Logged (Zofran) 12:00 Docusate Sodium PHA 02/16/25 Logged Capsule (Colace 12:00 Fall Risk Precautions SINA 02/16/[address] 11:58 Complete Blood Count LAB 02/17/25 Verified 04:00 Comprehensive LAB 02/17/25 Verified Metabolic Panel 04:00 Condition: Serious SINA 02/16/25 In Process 11:58 Acetaminophen Tablet PHA 02/16/25 Logged (Tylenol Tablet) 12:00 Nifedipine Er PHA 02/17/25 Logged (Procardia Xl 10:00 Oxybutynin Chloride PHA 02/17/25 Logged Tablet (Ditropan Tab 10:00 Tamsulosin PHA 02/17/25 Logged Hydrochloride (Flomax) 10:00 Nifedipine Er PHA 02/16/25 Verified (Procardia Xl 12:15 Lorazepam 2mg/Ml Inj PHA 02/16/25 Verified (Ativan Inj) 12:15 Date of Service: Feb 16, 2025 Billing Provider: RAFIQ REYNA Common Visit Codes: [id number] INP/OBS CARE (MOD) RAFIQ REYNA Feb 16, 2025 12:44
[2025-02-16] MEDS: MULTIPLE VITAMIN TAB PO ONE (17:17)
[2025-02-16] MEDS: THIAMINE HCL 100 MG TAB PO ONE (17:18)
[2025-02-16 18:40] VITALS: BP 142/89; PULSE 90; RESP 20; TEMP 97.7; O2SAT 97
[2025-02-16 18:50] VITALS: BP 142/89; PULSE 90; RESP 20; TEMP 97.7; O2SAT 97
[2025-02-16] MEDS: FOLIC ACID 1 MG in D5W 5% 50 ML INJ ONE (19:03)
[2025-02-16 20:00] VITALS: PULSE 74; RESP 18; O2SAT 97
[2025-02-16 20:59] VITALS: BP 132/84; PULSE 74; RESP 16; TEMP 97.6; O2SAT 95
[2025-02-17] VITALS (8 sets, daily range): BP systolic 143–163; BP diastolic 75–101; PULSE 87–110; RESP 14–20; TEMP 97.6–98.3; O2SAT 93–99
[2025-02-17 05:37] LABS: Alanine Aminotransferase 32 U/L (7-40); Albumin 4.3 g/dL (3.2-4.8); Anion Gap 14 (5-15); BUN/Creatinine Ratio 8.4 (10.0-20.0); Bilirubin, Total 0.6 mg/dL (0.2-1.0); Calcium 9.2 mg/dL (8.7-10.4); Carbon Dioxide 23 mmol/L (20-31); Glucose 84 mg/dL (74-106); Potassium 4.0 mmol/L (3.5-5.1)
[2025-02-17 05:39] LABS: Alkaline Phosphatase 117 U/L (46-116); Blood Urea Nitrogen 8 mg/dL (9-23); Chloride 108 mmol/L (98-107); Sodium 145 mmol/L (136-145); Total Protein 8.3 g/dL (5.7-8.2)
[2025-02-17 05:49] LABS: Hematocrit 29.4 % (41.0-53.0); Hemoglobin 9.5 g/dL (13.5-17.5); Mean Corpuscular Hemoglobin 28.3 pg (28.0-32.0); Mean Corpuscular Volume 87.0 fL (80.0-100.0)
[2025-02-17 06:54] LABS: Anisocytosis Slight; Nucleated Red Blood Cells % 1.0 %; Total Cells Counted 100.0 (100)
[2025-02-17] MEDS: TAMSULOSIN HYDROCHLORIDE 0.4 MG CAP PO SCH (09:47)
[2025-02-17] MEDS: OXYBUTYNIN CHL 5 MG TAB PO SCH (09:48)
[2025-02-17] MEDS: MULTIPLE VITAMIN TAB PO SCH (09:48)
[2025-02-17] MEDS: THIAMINE HCL 100 MG TAB PO SCH (09:48)
[2025-02-17] MEDS: FOLIC ACID 1 MG in D5W 5% 50 ML INJ SCH (10:17)
--- NOTE | 2025-02-17 13:26 | DVHPN2 ---
Reviewed: Care Plan, H&P, Labs, Medications, Previous Orders, Radiology Changes from previous H/P or p: No Changes General: Per HPI Eyes: No Pain, No Vision change, No Conjunctivae inflammation, No Eyelid inflammation, No Other, No Redness ENT: No Ear pain, No Ear discharge, No Nose pain, No Nose discharge, No Nose congestion, No Mouth pain, No Mouth swelling, No Throat pain, No Throat swelling, No Other Cardiovascular: No Chest Pain, No Palpitations, No Orthopnea, No Paroxysmal Noc. Dyspnea, No Edema, No Lt Headedness, No Other Respiratory: No Cough, No Dry, No Shortness of breath, No SOB with excertion, No Wheezing, No Hemoptysis, No Pleuritic Pain, No Sputum, No Other Gastrointestinal: No Nausea, No Vomiting, No Abdominal Pain, No Diarrhea, No Constipation, No Melena, No Hematochezia, No Other Genitourinary: No Dysuria, No Frequency, No Incontinence, No Hematuria, No Retention; Other (cote catheter malfunction) Musculoskeletal: No other, No neck pain, No shoulder pain, No arm pain, No back pain, No hand pain, No leg pain, No foot pain Skin: No Rash, No Lesions, No Jaundice, No Bruising, No Other Objective Vitals Vital Signs Date Time Temp Pulse Resp B/P (MAP) Pulse Ox O2 Delivery O2 Flow Rate FiO2 02/17/25 12:48 98.3 94 16 143/98 (113) 98 98.3 02/16/25 20:00 Room Air* 0 21 Intake/Output Intake and Output 02/17/25 07:00 Intake Total 240 ml Output Total 2800 ml Balance -2560 ml Intake Oral 240 ml Output Urine Total 2800 ml Medications Current Medications Medications Dose Ordered Sig/Jamie Route Start Time Stop Time Status Last Admin Dose Admin Acetaminophen/ Hydrocodone Bitart 1 tab Q4HP PRN PO 02/16/25 12:00 Ondansetron HCl 4 mg Q4HP PRN IV 02/16/25 12:00 Docusate Sodium 100 mg BIDPRN PRN PO 02/16/25 12:00 Acetaminophen 650 mg Q6HP PRN PO 02/16/25 12:00 Nifedipine 30 mg DAILY PO 02/17/25 10:00 02/17/25 09:47 30 MG Oxybutynin Chloride 5 mg DAILY PO 02/17/25 10:00 02/17/25 09:48 5 MG Tamsulosin HCl 0.4 mg DAILY PO 02/17/25 10:00 02/17/25 09:47 0.4 MG Lorazepam 1 mg Q2HP PRN IV 02/16/25 12:15 Chlordiazepoxide HCl 50 mg Q12HR PO 02/17/25 10:00 02/17/25 22:01 02/17/25 09:47 50 MG Chlordiazepoxide HCl 25 mg Q12HR PO 02/18/25 10:00 02/18/25 22:01 Chlordiazepoxide HCl 25 mg QAM PO 02/19/25 07:00 02/19/25 07:01 Thiamine HCl 100 mg DAILY PO 02/17/25 10:00 02/17/25 09:48 100 MG Folic Acid 1 mg/ Dextrose 50.2 ml @ 200.8 mls/ hr DAILY INJ 02/17/25 10:00 02/17/25 10:17 200.8 MLS/HR Multivitamins 1 tab DAILY PO 02/17/25 10:00 02/17/25 09:48 1 TAB Laboratory Results Laboratory Tests 02/17/25 04:53 Chemistry Test 02/17/25 04:53 Albumin 4.3 g/dL (3.2-4.8) Calcium Level 9.2 mg/dL (8.7-10.4) Total Protein 8.3 g/dL (5.7-8.2) H LFT Test 02/17/25 04:53 Alanine Aminotransferase (ALT) 32 U/L (7-40) Alkaline Phosphatase 117 U/L (46-116) H Aspartate Amino Transferase (AST) 61 U/L (13-40) H Total Bilirubin 0.6 mg/dL (0.2-1.0) Urinalysis Test 02/16/25 11:08 Urine Color Colorless (Yellow) Urine Clarity Clear (Clear) Urine pH 6.5 (5.0-9.0) Urine Specific [place] 1.009 (1.001-1.035) Urine Protein 1+ (Negative) H Urine Ketones Negative (Negative) Urine Blood Trace /uL (Negative) H Urine Nitrite 1+ (Negative) H Urine Bilirubin Negative (Negative) Urine Urobilinogen Normal mg/dL (Negative) Urine Leukocyte Esterase 3+ /uL (Negative) Urine RBC 3 /hpf (0 - 3) Urine Microscopic WBC 27 /HPF (0-3) H Urine Squamous Epithelial Cells None seen /hpf (<5) Urine Bacteria Few /hpf (None Seen) H Urine Glucose Normal mg/dL (Normal) Microbiology Microbiology Date/Time Source Procedure Growth Status 02/16/25 10:19 Blood Blood Culture - Preliminary NO GROWTH AFTER 24 HOURS OF INCUBATION. Resulted Assessment/Plan Assessment/Plan Toxic metabolic encephalopathy, Uncontrolled hypertension, Cote catheter malfunction, Prostate cancer, Plan: Admit to Med-Surg, Urology consult for catheter exchange, IV hydration, Tapering Librium, PRN Ativan, PRN antihypertensives, Home medications reconciled, Consider neurology consult if patient worsens. 02/17/2025: pt has Cote's replaced, possible d/c in 24 hours Plan discussed with: Patient Date of Service: Feb 17, 2025 Billing Provider: BRITTANY NEVAREZ DO Common Visit Codes: [id number] INP/OBS CARE(HIGH) BRITTANY NEVAREZ DO Feb 17, 2025 13:26
[2025-02-17] MEDS: HYDROcodone-ACET 5/325MG TAB PO PRN (20:19)
[2025-02-18 01:00] VITALS: BP 131/85; PULSE 95; RESP 22; TEMP 98; O2SAT 96
[2025-02-18 05:00] VITALS: BP 145/94; PULSE 85; RESP 18; TEMP 98; O2SAT 97
[2025-02-18 08:44] VITALS: BP 147/89; PULSE 97; RESP 20; TEMP 98.9; O2SAT 97
[2025-02-18 13:00] VITALS: BP 159/110; PULSE 125; RESP 22; TEMP 97.6; O2SAT 99
[2025-02-18] MEDS ORDERED: THIA100T10 PO (14:19)
--- NOTE | 2025-02-18 14:20 | DVHDS2 ---
Discharge Summary Date of Admission Feb 16, 2025 at 11:58 Date of Discharge: Feb 18, 2025 Labs/Diagnostic Data: Laboratory Results Test 02/17/25 04:53 02/16/25 11:08 02/16/25 10:01 White Blood Count 5.0 10^3/uL (4.4-10.8) Red Blood Count 3.37 10^6/uL (4.5-5.90) Hemoglobin 9.5 g/dL (13.5-17.5) Hematocrit 29.4 % (41.0-53.0) Mean Corpuscular Volume 87.0 fL (80.0-100.0) Mean Corpuscular Hemoglobin 28.3 pg (28.0-32.0) Mean Corpuscular Hemoglobin Concent 32.5 g/dL (32.0-36.0) Red Cell Distribution Width 21.8 % (11.8-14.3) Platelet Count 182 10^3/uL (140-450) Mean Platelet Volume 9.8 fL (6.9-10.8) Neutrophils (%) (Auto) % (37.0-80.0) Lymphocytes (%) (Auto) % (10.0-50.0) Monocytes (%) (Auto) % (0.0-12.0) Basophils (%) (Auto) % (0.0-2.0) Neutrophils # (Auto) 10 ^3/uL (1.6-8.6) Lymphocytes # (Auto) 10 ^3/uL (0.4-5.4) Monocytes # (Auto) 10 ^3/uL (0-1.3) Differential Total Cells Counted 100.0 (100) Neutrophils % (Manual) 33 (37.0-80.0) Band Neutrophils % (Manual) 0 Lymphocytes % (Manual) 64 (10.0-50.0) Monocytes % (Manual) 3 (0-12) Eosinophils % (Manual) 0 (0-7) Basophils % (Manual) 0 (0.0-2.0) Metamyelocytes % (manual) 0 Myelocytes % (Manual) 0 Promyelocytes % (Manual) 0 Blast Cells % (Manual) 0 Nucleated Red Blood Cells 1.0 % Reactive Lymphocytes 0 Platelet Estimate Adequate Anisocytosis (manual) Slight Sodium Level 145 mmol/L (136-145) Potassium Level 4.0 mmol/L (3.5-5.1) Chloride Level 108 mmol/L (98-107) Carbon Dioxide Level 23 mmol/L (20-31) Anion Gap 14 (5-15) Blood Urea Nitrogen 8 mg/dL (9-23) Creatinine 0.95 mg/dL (0.700-1.30) Glomerular Filtration Rate Calc 91 mL/min (>90) BUN/Creatinine Ratio 8.4 (10.0-20.0) Serum Glucose 84 mg/dL (74-106) Calcium Level 9.2 mg/dL (8.7-10.4) Total Bilirubin 0.6 mg/dL (0.2-1.0) Aspartate Amino Transferase (AST) 61 U/L (13-40) Alanine Aminotransferase (ALT) 32 U/L (7-40) Alkaline Phosphatase 117 U/L (46-116) Total Protein 8.3 g/dL (5.7-8.2) Albumin 4.3 g/dL (3.2-4.8) Urine Color Colorless (Yellow) Urine Clarity Clear (Clear) Urine pH 6.5 (5.0-9.0) Urine Specific [place] 1.009 (1.001-1.035) Urine Protein 1+ (Negative) Urine Ketones Negative (Negative) Urine Blood Trace /uL (Negative) Urine Nitrite 1+ (Negative) Urine Bilirubin Negative (Negative) Urine Urobilinogen Normal mg/dL (Negative) Urine Leukocyte Esterase 3+ /uL (Negative) Urine RBC 3 /hpf (0 - 3) Urine Microscopic WBC 27 /HPF (0-3) Urine Squamous Epithelial Cells None seen /hpf (<5) Urine Bacteria Few /hpf (None Seen) Urine Glucose Normal mg/dL (Normal) Lactic Acid Level 1.8 mmol/L (0.4-2.0) Troponin I High Sensitivity 33 ng/L (</=54) Plasma/Serum Blood Alcohol 356.8 mg/dL (<10) Other Laboratory Tests 02/17/25 04:53 Brief Hx & Hospital Course: Toxic metabolic encephalopathy, Uncontrolled hypertension, Wheeler catheter malfunction, Prostate cancer, Plan: Admit to Med-Surg, Urology consult for catheter exchange, IV hydration, Tapering Librium, PRN Ativan, PRN antihypertensives, Home medications reconciled, Consider neurology consult if patient worsens. 02/17/2025: pt has Wheeler's replaced, possible d/c in 24 hours 02/18/2025: discharged Condition at Discharge: Fair Final Diagnosis/Problems List see above Discharge Disposition: Home Discharge Instruct/Medications Diet: Consistent carbohydrate Activity: No Restrictions, As Tolerated Scheduled Nifedipine (Nifedipine Er), 30 MG PO DAILY Oxybutynin Chloride (Oxybutynin Chloride), 5 MG PO DAILY Tamsulosin Hcl (Flomax), 1 CAP PO DAILY Thiamine Hcl (Vitamin B-1), 100 MG PO DAILY Scheduled PRN Acetaminophen (Acetaminophen), 500 MG PO Q4HP PRN Albuterol Sulfate (Albuterol Sulfate Hfa), 108 MCG IN Q4HP PRN Discharge Statement: "Patient was advised to return to the ER or call 911 if any headaches, dizziness, shortness of breath, chest pain, abdominal pain, bleeding, fevers, or worsening of medical condition. Patient was counseled about treatment plan, medications, possible side effects, patientverbalized understanding. All questions were answered to the best of my ability. This discharge took greater then 30 minutes in planning, reviewing documentation, counseling the patient, and discussing with other team members." ASSESSMENT ASSESSMENT Assessment Date of Service: Feb 18, 2025 Billing Provider: BRITTANY NEVAREZ DO Common Visit Codes: [id number] DISCH DAY >30min BRITTANY NEVAREZ DO Feb 18, 2025 14:20
[2025-02-18 17:00] VITALS: BP 121/88; PULSE 108; RESP 18; TEMP 98; O2SAT 99
[2025-02-18 17:52] VITALS: BP 121/88; PULSE 91; RESP 18; TEMP 98; O2SAT 99
== END 2025-02-18 18:50 | disposition home or self-care (01) | DRG 466 ==
LOC: ER 09:29 → OVERFLOW 11:58 → WEST WING 18:40
PROVIDERS: ADMIT Internal Medicine; ATTEND Internal Medicine
DX: T83.518A Infection and inflammatory reaction due to other urinary catheter, initial encounter (principal); G92.8 Other toxic encephalopathy; I16.1 Hypertensive emergency; T83.031A Leakage of indwelling urethral catheter, initial encounter; N32.0 Bladder-neck obstruction; R33.8 Other retention of urine; I12.9 Hypertensive chronic kidney disease with stage 1 through stage 4 chronic kidney disease, or unspecified chronic kidney disease; M10.9 Gout, unspecified; F10.10 Alcohol abuse, uncomplicated; R41.2 Retrograde amnesia; N40.1 Benign prostatic hyperplasia with lower urinary tract symptoms; N18.9 Chronic kidney disease, unspecified; Z79.899 Other long term (current) drug therapy; Z85.46 Personal history of malignant neoplasm of prostate; Z91.199 Patient's noncompliance with other medical treatment and regimen due to unspecified reason; Y90.8 Blood alcohol level of 240 mg/100 ml or more; Y84.8 Other medical procedures as the cause of abnormal reaction of the patient, or of later complication, without mention of misadventure at the time of the procedure; Y92.89 Other specified places as the place of occurrence of the external cause
CPT/HCPCS: 36415; 70450; 80048; 80053; 80320; 81001; 83605; 84484; 85007; 85027; 87040; 96365; 96375; 99291; 99292; G0378; J7060

== ENCOUNTER 2025-03-01 03:21 | Emergency (ER) | payer MEDICAID ==
[~2025-03-01] VITALS: Ht 175.3 cm; Wt 90.1 kg
[~2025-03-01 03:21] MED LIST changes: +THIA100T10 PO
--- NOTE | 2025-03-01 05:03 | ED.PDOC ---
History of Present Illness HPI Comments 64 y/o M presents with c/c penile irritation. Patient inquires on having his Wheeler catheter removed, due to it causing him irritation over the past few days following initial placement 1x month ago. Chief Complaint: Urinary Time Seen by MD: 04:00 Primary Care Provider: VICENTA Reviewed Notes: Nurses Notes, Medications, Allergies Allergies: Coded Allergies: NO KNOWN ALLERGIES (Unverified , 01/05/19) Home Meds Active Scripts Cefdinir (Cefdinir) 300 Mg Cap, 1 CAP PO BID for 10 Days, #20 CAP Prov:KAJAL TRUJILLO MD 03/01/25 Hydralazine Hcl (Hydralazine Hcl) 50 Mg Tab, 1 TAB PO BID for 90 Days, #180 TAB 3 Refills Prov:KAJAL TRUJILLO MD 03/01/25 Thiamine Hcl (VITAMIN B-1) 100 Mg Tb, 100 MG PO DAILY for 30 Days, #30 TAB 3 Refills Prov:BRITTANY NEVAREZ DO 02/18/25 Tamsulosin Hcl (Flomax) 0.4 Mg Cap, 1 CAP PO DAILY, #90 CAP 3 Refills Prov:JORGE LOGAN MD 12/23/24 Oxybutynin Chloride (Oxybutynin Chloride) 5 Mg Tab, 5 MG PO DAILY for 30 Days, #30 TAB 5 Refills Prov:JORGE LOGAN MD 12/23/24 Nifedipine (Nifedipine Er) 30 Mg Tab, 30 MG PO DAILY for 30 Days, #30 TAB 5 Refills Prov:JORGE LOGAN MD 12/23/24 Albuterol Sulfate (Albuterol Sulfate Hfa) 108 Mcg/Act Aer, 108 MCG IN Q4HP PRN, #1 AER Prov:JUAN DIEGO ROSENBERG PAC 08/09/24 Acetaminophen (Acetaminophen) 500 Mg Tab, 500 MG PO Q4HP PRN, #30 TAB Prov:JUAN DIEGO ROSENBERG PAC 08/09/24 Information Source: Patient Mode of Arrival: Ambulatory Severity: Moderate Timing: Days Duration: Since onset Prehospital treatment: None Past Medical History PAST MEDICAL HISTORY: Cancer (prostate), CKF, Gout, HTN Surgical History: Denies all surgeries Family History Family History: Reviewed,noncontributory to illness Social History Smoker: Non-Smoker Alcohol: Heavy Drugs: Denies Drug Use Lives In: Home All Other Systems: Reviewed and Negative (Comprehensive review of systems are negative unless stated in HPI) Physical Exam General Appearance: No Apparent Distress, Normal HEENT: Normal ENT Inspection, Pharynx Normal, TMs Normal Neck: Full Range of Motion, Non-Tender, Normal, Normal Inspection Respiratory: Chest Non-Tender, Lungs Clear, No Accessory Muscle Use, No Respiratory Distress, Normal Breath Sounds Cardiovascular: No Edema, No JVD, No Murmur, No Gallop, Normal Peripheral Pulses, Regular Rate/Rhythm Breast Exam: Deferred Gastrointestinal: No Organomegaly, Non Tender, No Pulsatile Mass, Normal Bowel Sounds, Soft Genitalia: Other (indwelling Wheeler ) Pelvic: Deferred Rectal: Deferred Extremities: No calf tenderness, Normal capillary refill, Normal inspection, Normal range of motion, Non-tender, No pedal edema Musculoskeletal : Apperance: Normal Neurologic: Alert, heavy equipment engine mechanic II-XII nml as Tested, No Motor Deficits, Normal Affect, Normal Mood, No Sensory Deficits Cerebellar Function: Normal Reflexes: Normal Skin: Dry, Normal Color, Warm Lymphatic: No Adenopathy Was a procedure done? Was a procedure done?: No Differential Dx Considerations may include: Wheeler catheter complication X-Ray, Labs, Meds, VS Vital Signs Date Time Temp Pulse Resp B/P (MAP) Pulse Ox O2 Delivery O2 Flow Rate FiO2 03/01/25 07:18 185/111 03/01/25 07:15 98.0 60 17 185/111 (135) 98 98.0 03/01/25 03:25 97.6 98 16 202/128 97 97.6 Lab Test 03/01/25 04:34 Range/Units Sodium Level 144 136-145 mmol/L Potassium Level 4.9 3.5-5.1 mmol/L Chloride Level 109 H 98-107 mmol/L Carbon Dioxide Level 21 20-31 mmol/L Anion Gap 14 5-15 Blood Urea Nitrogen 16 9-23 mg/dL Creatinine 1.21 0.700-1.30 mg/dL Glomerular Filtration Rate Calc 68 >90 mL/min BUN/Creatinine Ratio 13.2 10.0-20.0 Serum Glucose 83 74-106 mg/dL Calcium Level 9.1 8.7-10.4 mg/dL Current Medications Medications (Trade) Dose Ordered Sig/Jamie Route Start Time Stop Time Status Last Admin Cephalexin (Keflex Capsule) 500 mg ONCE ONCE PO 03/01/25 04:15 03/01/25 04:16 DC 03/01/25 07:19 Hydralazine HCl (Apresoline Tablet) 50 mg ONCE ONCE PO 03/01/25 04:15 03/01/25 04:16 DC 03/01/25 07:18 Time of 1ST Reevaluation: 04:30 Reevaluation 1ST: Unchanged Patient Education/Counseling: Diagnosis, Treatment, Need For Follow Up Family Education/Counseling: No Family Present SEPSIS Sepsis Screen Date sepsis recognized/suspect: Mar 01, 2025 Time Sepsis recognized/suspect: 328 Recent Procedure: No On Antibiotic Therapy: No Respiratory Rate >20: No Heart Rate >90: No Temp<36 C (96.8 F) or >38.3 C: No SBP <90 or MAP <65 mmHG: No New Acute Mental Status Change: No Is the patient on CPAP, BIPAP,: No Physician Orders Urinalysis (03/01/25 03:33) Vital Signs Date Time Temp Pulse Resp B/P (MAP) Pulse Ox O2 Delivery O2 Flow Rate FiO2 03/01/25 07:18 185/111 03/01/25 07:15 98.0 60 17 185/111 (135) 98 98.0 03/01/25 03:25 97.6 98 16 202/128 97 97.6 Departure 1 Departure Time of Disposition: 05:30 Impression: Primary Impression: Complication of Wheeler catheter Additional Impression: Hypertensive urgency Disposition: 01 HOME / SELF CARE / HOMELESS Condition: Stable e-Prescriptions Cefdinir (Cefdinir) 300 Mg Cap 1 CAP PO BID for 10 Days, #20 CAP Prov: KAJAL TRUJILLO MD 03/01/25 Hydralazine Hcl (Hydralazine Hcl) 50 Mg Tab 1 TAB PO BID for 90 Days, #180 TAB 3 Refills Prov: KAJAL TRUJILLO MD 03/01/25 Discharged With: Self Critical Care Note Critical Care Time?: No Stability Stability form required: No Heart Score Heart Score: Heart Score Response (Comments) Value History N/A 0 EKG N/A 0 Age N/A 0 Risk Factors N/A 0 Troponin N/A 0 Total 0 I personally scribed for KAJAL TRUJILLO MD ([email or web address]) on 03/01/25 at 05:03. Electronically submitted by Joel Cyr ([email or web address]). KAJAL TRUJILLO MD Mar 01, 2025 05:03
[2025-03-01 05:08] LABS: Potassium 4.9 mmol/L (3.5-5.1); Sodium 144 mmol/L (136-145)
[2025-03-01 05:09] LABS: Anion Gap 14 (5-15); Calcium 9.1 mg/dL (8.7-10.4); Carbon Dioxide 21 mmol/L (20-31)
[2025-03-01 05:14] LABS: BUN/Creatinine Ratio 13.2 (10.0-20.0); Blood Urea Nitrogen 16 mg/dL (9-23); Chloride 109 mmol/L (98-107); Glucose 83 mg/dL (74-106)
[2025-03-01] MEDS ORDERED: HYDR50TA47 PO (06:04)
[2025-03-01] MEDS ORDERED: CEFD300C2 PO (06:04)
[2025-03-01 07:15] VITALS: BP 185/111; PULSE 60; RESP 17; TEMP 98; O2SAT 98
[2025-03-01] MEDS: CEPHALEXIN 250 MG CAP PO ONE (07:19)
== END 2025-03-01 11:13 | disposition home or self-care (01) ==
LOC: ER 03:21
DX: T83.9XXA Unspecified complication of genitourinary prosthetic device, implant and graft, initial encounter (principal); N48.89 Other specified disorders of penis; I16.0 Hypertensive urgency; I12.9 Hypertensive chronic kidney disease with stage 1 through stage 4 chronic kidney disease, or unspecified chronic kidney disease; N18.9 Chronic kidney disease, unspecified; M10.9 Gout, unspecified; Z79.899 Other long term (current) drug therapy; Y92.89 Other specified places as the place of occurrence of the external cause
CPT/HCPCS: 36415; 80048

== ENCOUNTER 2025-03-13 23:59 | Emergency (ER) | payer MEDICAID ==
[~2025-03-13] VITALS: Ht 175.3 cm; Wt 88.2 kg
[~2025-03-13 23:59] MED LIST changes: +CEFD300C2 PO; +HYDR50TA47 PO
[2025-03-14 01:03] VITALS: BP 163/111; TEMP 97.8
[2025-03-14 01:04] VITALS: PULSE 118; RESP 20; O2SAT 98
--- NOTE | 2025-03-14 01:57 | ED.PDOC ---
General HPI Comments HPI: 65-year-old male who came to ER for tube replacement. Patient has a history of prostate cancer, states Wheeler catheter was inserted 2 months ago, and patient comes in today wanting to removed it. Patient intoxicated with alcohol at this time of care. Initial Vitals BP: 180/100 HR:132 RR:24 O2:97% Temp:98.1 F Past Medical History: Prostate cancer, BPH, hypertension Past Surgical History: Denies Social History: Heavy alcohol drinker HPI: Poor Historian. I explained to the patient in length that if we remove the Wheeler catheter he might develop acute urinary retention again and might have to independent ER again. Patient is adamant about getting the Wheeler catheter removed immediately. Patient has a family doctor and patient can be referred to Urology by his family doctor. I explained that to the patient as well that he must follow up with the Urology for a his history of cancer and enlarged prostate. REVIEW OF SYSTEMS: CONSTITUTIONAL: Denies acute: fever, diaphoresis, chills, generalized weakness. HEAD: Denies acute: headache, photophobia Eyes: Denies acute: Double vision, vision loss, eye pain, eye discharge. EARS: Denies acute: tinnitus, hearing loss, ear discharge, ear pain, THROAT: Denies acute: sore throat, swelling, difficulty swallowing , pain with swallowing, change in voice. NECK: Denies acute: neck pain, neck swelling, stiff neck. HEART: Denies acute : chest pain, palpitations, LUNGS: Denies acute: SOB, wheezing, cough, hemoptysis ABDOMEN: Denies acute: abdominal pain, Nausea, Vomiting, diarrhea, melena , hematemesis, hematochezia SKIN: Denies acute: rash, redness, lesions, itchiness. EXTREMITIES: Denies acute: calf pain, numbness, tingling, weakness, denies pain in extremity. Denies acute: Low back pain. Neuro: Denies acute: focal neurological deficit, motor or sensory focal neurological deficit, tremors, seizure like activity, confusion, dizziness, change in mental status, loss of bowel or bladder function, cauda equina like symptoms. : Denies acute: dysuria, hematuria, flank pain, increase in urinary frequency. PSYCH: Denies acute: hallucination, suicidal ideation, homicidal ideation. PHYSICAL EXAM: General: ---no----acute distress, awake and alert. Head: normocephalic, atraumatic. Neck: supple, trachea is midline, no swelling. Throat: Normal phonation. Eyes:, no erythema, no purulent discharge, no proptosis, no icterus. Heart: regular rate, regular rhythm, no significant murmur appreciated. Lungs: no apparent respiratory distress, Able to speak in full sentences. No wheezing, no rhonchi, no crackles. No stridors Clear to auscultation bilaterally. Abdomen: non tender to palpation, non distended, soft, no guarding, no rebound, + bowel sounds. Wheeler catheter in place with normal looking urine. Neuro: Awake, Alert, oriented to name, self, situation, follows commands GCS=15. Speech is normal. Skin: no petechia, no purpura, no cyanosis, non-pale, not jaundice. Lower extremities: --no - Pitting edema no deformity, no focal swelling, no calf TTP. Makes eye contact. moves all four extremities. Face: no apparent facial droop. Ambulating in the ED independently. ED COURSE: DISCLAIMER: This medical document was created using an electronic medical record system with voice recognition software and computerized dictation system. Although this document has been carefully reviewed, there might still be some phonetic and typographical errors. Occasional wrong-word or "sound-alike" substitutions may have occurred due to the inherent limitations of voice recognition software. These areas are purely typographical due to imperfections of the software programs and do not reflect any compromise in the patient's medical care. Please read the chart carefully and recognize, using context, where these substitutions have occurred. Chief Complaint: Tube Replacement Time Seen by MD: 01:57 Primary Care Provider: VICENTA Reviewed notes: Nurses Notes, Allergies Allergies: Coded Allergies: NO KNOWN ALLERGIES (Unverified , 01/05/19) Home Meds Active Scripts Cefdinir (Cefdinir) 300 Mg Cap, 1 CAP PO BID for 10 Days, #20 CAP Prov:KAJAL TRUJILLO MD 03/01/25 Hydralazine Hcl (Hydralazine Hcl) 50 Mg Tab, 1 TAB PO BID for 90 Days, #180 TAB 3 Refills Prov:KAJAL TRUJILLO MD 03/01/25 Thiamine Hcl (VITAMIN B-1) 100 Mg Tb, 100 MG PO DAILY for 30 Days, #30 TAB 3 Refills Prov:BRITTANY NEVAREZ DO 02/18/25 Tamsulosin Hcl (Flomax) 0.4 Mg Cap, 1 CAP PO DAILY, #90 CAP 3 Refills Prov:JORGE LOGAN MD 12/23/24 Oxybutynin Chloride (Oxybutynin Chloride) 5 Mg Tab, 5 MG PO DAILY for 30 Days, #30 TAB 5 Refills Prov:JORGE LOGAN MD 12/23/24 Nifedipine (Nifedipine Er) 30 Mg Tab, 30 MG PO DAILY for 30 Days, #30 TAB 5 Refills Prov:JORGE LOGAN MD 12/23/24 Albuterol Sulfate (Albuterol Sulfate Hfa) 108 Mcg/Act Aer, 108 MCG IN Q4HP PRN, #1 AER Prov:JUAN DIEGO ROSENBERG PAC 08/09/24 Acetaminophen (Acetaminophen) 500 Mg Tab, 500 MG PO Q4HP PRN, #30 TAB Prov:JUAN DIEGO ROSENBERG PAC 08/09/24 Information Source: Patient Mode of Arrival: Ambulatory Past Medical History PAST MEDICAL HISTORY: Cancer, CKF, Gout, HTN Surgical History: Denies all surgeries Family History Family History: Reviewed,noncontributory to illness Social History Smoker: Non-Smoker Alcohol: Heavy Drugs: Denies Drug Use Lives In: Home Was a procedure done? Was a procedure done?: No Differential Diagnosis Kidney stone (Female): N/A Kidney stone (Male): Urinary obstruction, Urolithiasis X-Ray, Labs, Meds, VS Vital Signs Date Time Temp Pulse Resp B/P (MAP) Pulse Ox O2 Delivery O2 Flow Rate FiO2 03/14/25 01:04 118 20 98 Room Air* 0 21 03/14/25 01:03 97.8 118 20 163/111 (128) 98 97.8 03/14/25 00:00 98.1 132 24 180/108 97 98.1 Time of 1ST Reevaluation: 01:54 Reevaluation 1ST: Unchanged Patient Education/Counseling: Diagnosis, Treatment Family Education/Counseling: Other Comments Patient eloped SEPSIS Sepsis Screen Date sepsis recognized/suspect: Mar 14, 2025 Time Sepsis recognized/suspect: 0009 Recent Procedure: No On Antibiotic Therapy: No Respiratory Rate >20: Yes Heart Rate >90: Yes Temp<36 C (96.8 F) or >38.3 C: No SBP <90 or MAP <65 mmHG: No New Acute Mental Status Change: No Is the patient on CPAP, BIPAP,: No Physician Orders Communication Order (03/14/25 02:03) Vital Signs Date Time Temp Pulse Resp B/P (MAP) Pulse Ox O2 Delivery O2 Flow Rate FiO2 03/14/25 01:04 118 20 98 Room Air* 0 21 03/14/25 01:03 97.8 118 20 163/111 (128) 98 97.8 03/14/25 00:00 98.1 132 24 180/108 97 98.1 Departure 1 Departure Time of Disposition: 02:13 Impression: Primary Impression: Encounter for Wheeler catheter removal Additional Impressions: Eloped from emergency department Hypertensive crisis Alcohol abuse Disposition: LEFT AWOL/ELOPED Condition: Other Additional Instructions: Patient eloped Discharged With: Self Critical Care Note Critical Care Time?: No Stability Stability form required: No I personally scribed for IVETH ESCALONA DO ([email or web address]) on 03/14/25 at 01:57. Electronically submitted by Braxton Zaman ([email or web address]). I personally scribed for IVETH ESCALONA DO ([email or web address]) on 03/14/25 at 04:52. Electronically submitted by Braxton Zaman ([email or web address]). IVETH ESCALONA DO Mar 14, 2025 01:57
== END 2025-03-14 04:17 | disposition left against medical advice (07) ==
LOC: ER 03-14 00:01
DX: Z46.6 Encounter for fitting and adjustment of urinary device (principal); I12.9 Hypertensive chronic kidney disease with stage 1 through stage 4 chronic kidney disease, or unspecified chronic kidney disease; N18.9 Chronic kidney disease, unspecified; F10.129 Alcohol abuse with intoxication, unspecified; N40.0 Benign prostatic hyperplasia without lower urinary tract symptoms; Z79.899 Other long term (current) drug therapy; Z85.46 Personal history of malignant neoplasm of prostate

== ENCOUNTER 2025-04-07 12:11 | Emergency (ER) | payer MEDICAID ==
[~2025-04-07] VITALS: Ht 175.3 cm; Wt 90.3 kg
[2025-04-07 12:15] VITALS: BP 172/98; PULSE 135; RESP 18; TEMP 98.1; O2SAT 95
--- NOTE | 2025-04-07 15:46 | ED.PDOC ---
General HPI Comments 65M presents to the ER w/ prior MHx of Prostate Cancer, BPH, HTN and the c/c of UA symptoms. Pt reports on having had a Wheeler catheter placed 2 months ago due from having hematuria and has no changed or removed the Wheeler cath. Pt is currently requesting for the Wheeler cath to be removed. Denies any symptoms at this time. Patient denies any chest pain, SOB, dizziness, numbness, weakness, tingling, fever, chills, or recent fall. Chief Complaint: Urinary Time Seen by MD: 15:15 Primary Care Provider: VICENTA Reviewed notes: Nurses Notes, Medications, Allergies Allergies: Coded Allergies: NO KNOWN ALLERGIES (Unverified , 01/05/19) Home Meds Active Scripts Cefdinir (Cefdinir) 300 Mg Cap, 1 CAP PO BID for 10 Days, #20 CAP Prov:KAJAL TRUJILLO MD 03/01/25 Hydralazine Hcl (Hydralazine Hcl) 50 Mg Tab, 1 TAB PO BID for 90 Days, #180 TAB 3 Refills Prov:KAJAL TRUJILLO MD 03/01/25 Thiamine Hcl (VITAMIN B-1) 100 Mg Tb, 100 MG PO DAILY for 30 Days, #30 TAB 3 Refills Prov:BRITTANY NEVAREZ DO 02/18/25 Tamsulosin Hcl (Flomax) 0.4 Mg Cap, 1 CAP PO DAILY, #90 CAP 3 Refills Prov:JORGE LOGAN MD 12/23/24 Oxybutynin Chloride (Oxybutynin Chloride) 5 Mg Tab, 5 MG PO DAILY for 30 Days, #30 TAB 5 Refills Prov:JORGE LOGAN MD 12/23/24 Nifedipine (Nifedipine Er) 30 Mg Tab, 30 MG PO DAILY for 30 Days, #30 TAB 5 Refills Prov:JORGE LOGAN MD 12/23/24 Albuterol Sulfate (Albuterol Sulfate Hfa) 108 Mcg/Act Aer, 108 MCG IN Q4HP PRN, #1 AER Prov:JUAN DIEGO ROSENBERG PAC 08/09/24 Acetaminophen (Acetaminophen) 500 Mg Tab, 500 MG PO Q4HP PRN, #30 TAB Prov:JUAN DIEGO ROSENBERG PAC 08/09/24 Information Source: Patient Mode of Arrival: Ambulatory Severity: Moderate Timing: Months Duration: Since onset Prehospital treatment: None Onset: Other (Wheeler Cath placed for 2 months) Symptoms: None History of: BPH Location: None associated signs and symptoms: None Past Medical History PAST MEDICAL HISTORY: Cancer (prostate), HTN Past Medical History (Other): BPH Surgical History: Denies all surgeries Family History Family History: Reviewed,noncontributory to illness, Unknown Social History Smoker: Unknown Alcohol: Unknown Drugs: Unknown Lives In: Home Constitutional: denies: chills, diaphoresis, fatigue, fever, malaise, sweats, weakness, others EENTM: denies: blurred vision, double vision, ear bleeding, ear discharge, ear drainage, ear pain, ear ringing, eye pain, eye redness, hearing loss, mouth pain, mouth swelling, nasal discharge, nose bleeding, nose congestion, nose pain, photophobia, tearing, throat pain, throat swelling, voice changes, others Respiratory: denies: cough, hemoptysis, orthopnea, SOB at rest, shortness of breath, SOB with excertion, stridor, wheezing, others Cardiovascular: denies: chest pain, dizzy spells, diaphoresis, Dyspnea on exertion, edema, irregular heart beat, left arm pain, lightheadedness, palpita tions, PND, syncope, others Gastrointestinal: denies: abdomen distended, abdominal pain, blood streaked angelo wels, constipated, diarrhea, dysphagia, difficulty swallowing, hematemesis, melena, nausea, poor appetite, poor fluid intake, rectal bleeding, rectal pain, vomiting, others Genitourinary: reports: pain (/uncomftorability due from Wheeler Cath being placed for 2 months); denies: burning, dysuria, flank pain, frequency, hematuria, incontinence, penile discharge, penile sore, testicle pain, testicle swelling, urgency, others Neurological: denies: dizziness, fainting, headache, left sided numbness, left sided weakness, numbness, paresthesia, pre-existing deficit, right sided numbness, right sided weakness, seizure, speech problems, tingling, tremors, weakness, others Musculoskeletal: denies: back pain, gout, joint pain, joint swelling, muscle pain, muscle stiffness, neck pain, others Integumetry: denies: bruises, change in color, change in hair/nails, dryness, laceration, lesions, lumps, rash, wounds, others Allergic/Immunocompromised: denies: Difficulty Healing, Frequent Infections, Hives, Itching, others Hematologic/Lymphatic: denies: anemia, blood clots, easy bleeding, easy bruising, swollen glands, others Endocrine: denies: excessive hunger, excessive sweating, excessive thirst, excessive urination, flushing, intolerance to cold, intolerance to heat, unexplained weight gain, unexplained weight loss, others Psychiatric: denies: anxiety, bipolar disorder, depression, hopeless, panic disorder, schizophrenia, sleepless, suicidal, others All Other Systems: Reviewed and Negative Physical Exam General Appearance: No Apparent Distress, Normal HEENT: Normal ENT Inspection, PERRL/EOMI, Pharynx Normal, TMs Normal Neck: Full Range of Motion, Non-Tender, Normal, Normal Inspection Respiratory: Chest Non-Tender, Lungs Clear, No Accessory Muscle Use, No Respiratory Distress, Normal Breath Sounds Cardiovascular: No Edema, No JVD, No Murmur, No Gallop, Normal Peripheral Pulses, Regular Rate/Rhythm Breast Exam: Deferred Gastrointestinal: No Organomegaly, Non Tender, No Pulsatile Mass, Normal Bowel Sounds, Soft Genitalia: Other (Patient is here to remove his Wheeler catheter which he had for two month) Pelvic: Deferred Rectal: Deferred Extremities: No calf tenderness, Normal capillary refill, Normal inspection, Normal range of motion, Non-tender, No pedal edema Musculoskeletal : Apperance: Normal Neurologic: Alert, 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 Was a procedure done?: No Differential Diagnosis Kidney stone (Female): N/A Kidney stone (Male): Urinary obstruction, Urinary tract infection Penile/Scrotal: UTI, Urinary Retention Urinary Problem (Male): Prostatitis, Urinary Retention, UTI Urinary Problem (Female): N/A X-Ray, Labs, Meds, VS Vital Signs Date Time Temp Pulse Resp B/P (MAP) Pulse Ox O2 Delivery O2 Flow Rate FiO2 04/07/25 12:15 98.1 135 18 172/98 95 98.1 X-Ray, Labs, Meds, VS Comment Patient came to the emergency department for Wheeler catheter removal Urine pending Patient left Time of 1ST Reevaluation: 15:45 Reevaluation 1ST: Unchanged Consultation: PCP, Urology, Other Patient Education/Counseling: Diagnosis, Treatment, Prognosis Family Education/Counseling: Diagnosis, Treatment, Prognosis, No Family Present SEPSIS Sepsis Screen Date sepsis recognized/suspect: Apr 07, 2025 Time Sepsis recognized/suspect: 1217 Recent Procedure: No On Antibiotic Therapy: No Respiratory Rate >20: No Heart Rate >90: No Temp<36 C (96.8 F) or >38.3 C: No SBP <90 or MAP <65 mmHG: No New Acute Mental Status Change: No Is the patient on CPAP, BIPAP,: No Physician Orders Urinalysis (04/07/25 15:01) Vital Signs Date Time Temp Pulse Resp B/P (MAP) Pulse Ox O2 Delivery O2 Flow Rate FiO2 04/07/25 12:15 98.1 135 18 172/98 95 98.1 Departure 1 Departure Time of Disposition: 16:02 Impression: Primary Impression: Encounter for Wheeler catheter removal Additional Impressions: BPH (benign prostatic hyperplasia) Qualified Codes: N40.1 - Benign prostatic hyperplasia with lower urinary tract symptoms; R39.16 - Straining to void Hypertension Qualified Codes: I10 - Essential (primary) hypertension Disposition: 01 HOME / SELF CARE / HOMELESS Condition: Fair Additional Instructions: Push fluids and take your medications as prescribed Follow up with your urologist Discharged With: Self Critical Care Note Critical Care Time?: No Stability Stability form required: No Heart Score Heart Score: Heart Score Response (Comments) Value History N/A 0 EKG N/A 0 Age 45-64 1 Risk Factors 1 or 2 risk factors 1 Troponin N/A 0 Total 2 I personally scribed for NURA JETER MD ([email or web address]) on 04/07/25 at 15:46. Electronically submitted by Vincent Villanueva ([email or web address]). NURA JETER MD Apr 07, 2025 15:46
[2025-04-07 16:12] LABS: Urine Amorphous Crystal FEW /hpf (None Seen); Urine Protein, UAD 1+ (Negative); Urine WBC Clumps PRESENT /hpf (None Seen)
== END 2025-04-07 16:26 | disposition home or self-care (01) ==
LOC: ER 12:11
DX: N40.1 Benign prostatic hyperplasia with lower urinary tract symptoms (principal); I10 Essential (primary) hypertension; F17.200 Nicotine dependence, unspecified, uncomplicated; Z46.6 Encounter for fitting and adjustment of urinary device; Z79.899 Other long term (current) drug therapy
CPT/HCPCS: 81001